=== PATIENT | female | born 1980 | race Caucasian/White ===

== ENCOUNTER 2020-10-17 22:24 | Emergency (ER) | payer MEDICAID, SELFPAY ==
--- NOTE | ~2020-10-17 | CT_ITS ---
EXAMINATION: CT ABDOMEN AND PELVIS WITHOUT CONTRAST CLINICAL INFORMATION: Left lower quadrant and flank pain, question stone COMPARISON: None TECHNIQUE: Multidetector volumetric imaging was performed from the superior aspect of the liver through the pubic symphysis. Sagittal and coronal reformatted images were obtained on the technologist's workstation. This CT examination was performed using dose optimization techniques as appropriate, variously including the following: *Automated exposure control *Adjustment of mA and/or kV according to patient size (this includes techniques or standardized protocols for targeted exams where dose is matched to indication/reason for exam; i.e. extremities or head) *Use of iterative reconstruction technique DLP: 1032 mGy-cm FINDINGS: LUNG BASES: Bibasilar subsegmental atelectasis. LIVER, GALLBLADDER, AND BILIARY TREE: The liver is enlarged, measuring approximately 23 cm in length. No focal hepatic lesion or biliary ductal dilatation is identified on this noncontrast exam. The gallbladder is unremarkable with no evidence of radiopaque gallstones, gallbladder wall thickening, or obvious pericholecystic inflammatory changes. PANCREAS: Unremarkable. SPLEEN: Unremarkable. ADRENAL GLANDS: Unremarkable. KIDNEYS AND URETERS: The kidneys are normal in size, shape, and attenuation. No hydronephrosis, hydroureter, or calculi seen. No perinephric stranding. BLADDER: Unremarkable. GASTROINTESTINAL TRACT: Moderate volume of stool is noted. The small and large bowel are otherwise unremarkable. The appendix is unremarkable. No free fluid or free air is seen. ABDOMINAL WALL: No significant hernia is appreciated. LYMPH NODES: Normal. VASCULAR: Unremarkable. PELVIC VISCERA: Unremarkable. OSSEOUS STRUCTURES: There are bilateral L3 pars defects with slight grade 1 anterolisthesis of L3 on L4 and disc space narrowing. Scattered endplate osteophytes are noted. CT/CT abdomen pelvis wo con IMPRESSION: No hydronephrosis or renal/ureteral calculus identified. Hepatomegaly.
[2020-10-17 22:25] VITALS: BP 174/85; PULSE 77; RESP 16; TEMP 36.9; O2SAT 96; BMI 44.9
[2020-10-17 23:11] LABS: Glucose Urine UA NEG (NEG); Leukocyte Esterase Urine NEG (NEG); Nitrite Urine NEG (NEG); Specific Gravity - Urine >= 1.030 (1.005-1.025); Urine Blood 3+ (NEG); Urine Ketones NEG (NEG); Urine Protein NEG (NEG-TRACE)
[2020-10-17 23:12] LABS: Appearance Urine CLEAR; Color Urine YELLOW
[2020-10-17 23:31] LABS: Bacteria Urine TRACE /LPF; Mucus Urine TRACE /LPF; Squamous Epithelial Cell Urine TRACE /LPF
[2020-10-17 23:45] LABS: UPreg QC Valid YES; Urine Pregnancy NEGATIVE (NEGATIVE)
--- NOTE | 2020-10-17 23:48 | ED.ABDPAIN ---
HPI - Abdominal Pain General Chief Complaint: Abdominal Pain Stated Complaint: Lower abdominal pain Time Seen by Provider: 10/17/20 23:48 Source: patient Mode of arrival: ambulatory Limitations: no limitations History of Present Illness HPI narrative: Patient complaining of left lower abdominal pain for last 3 weeks getting worse for last few days radiating to the back today when she wiped she noticed some blood on the tissue no history of kidney stone no fever ++ history of ovarian cyst in the past patient with chronic constipation uses enema for bowel movements . no blood in the stool Related Data Previous Rx's Medication Instructions Recorded polyethylene glycol 3350 [Miralax] 17 g PO DAILY #510 g 10/18/20 Allergies Allergy/AdvReac Type Severity Reaction Status Date / Time morphine [MORPHINE] Allergy Unknown SHORTNESS Verified 10/17/20 22:33 OF BREATH Penicillins [PENICILLINS] Allergy Unknown RASH Verified 10/17/20 22:33 Review of Systems Review of Systems Yes all other systems are reviewed and are negative Physical Exam Vital Signs: Vital Signs: Last Vital Signs Temp 98.7 F 10/18/20 00:00 Pulse 77 10/17/20 22:25 Resp 16 10/18/20 00:00 BP 160/58 H 10/18/20 00:00 Pulse Ox 95 10/18/20 00:00 Body Mass Index 44.9 Appearance: Alert. Oriented X3. No acute distress. Obese patient Eyes: PERRLA, ENT: Pharynx normal. Oral Mucosa moist Neck: Normal inspection. Neck supple. CVS: Normal heart rate and rhythm. Pulses normal. Respiratory: No respiratory distress. Equal air entry bilateral, no wheezing/rales/rhonchi Abdomen: Soft and mild deep tenderness left lower quadrant Bowel sounds are present, no mass palpable, no CVA tenderness Skin: Skin warm and dry. Normal skin color. Normal skin turgor. Extremities: No lower extremity edema. No calf tenderness Neuro: Oriented X 3. No motor deficit. MDM - Abdominal Pain Lab Data Result diagrams: 10/18/20 00:09 10/18/20 00:09 Labs: Lab Results 10/17/20 10/17/20 10/18/20 Range/Units 23:04 23:04 00:09 WBC 9.9 (4.8-10.8) X10*3/uL RBC 3.45 L (4.20-5.50) X10*6/uL Hgb 10.8 L (12.0-16.0) g/dl Hct 33.4 L (37-47) % MCV 96.8 (80-98) fL MCH 31.3 (27.0-33.0) pg MCHC 32.3 (31.0-35.0) g/dl RDW 12.7 (11.0-16.0) % Plt Count 265 (160-400) X10*3/uL MPV 11.4 (9.4-12.3) fL Immature Gran % (Auto) 0.2 (0.0-0.4) % Neut % (Auto) 44.4 L (45-73) % Lymph % (Auto) 38.2 (20-40) % [place] % (Auto) 8.4 (2-11) % Eos % (Auto) 8.2 H (0-4) % Baso % (Auto) 0.6 (0-2) % Lymph # (Auto) 3.8 (1.2-4.9) X10*3/uL [place] # (Auto) 0.8 (0.1-1.2) X10*3/uL Eos # (Auto) 0.8 H (0.0-0.4) X10*3/uL Baso # (Auto) 0.1 (0.0-0.2) X10*3/uL Abs Immat Gran (auto) 0.02 (0.00-0.03) X10*3/uL Absolute Neuts (auto) 4.4 (2.0-8.3) X10*3/uL Absolute Nucleated RBC 0.000 (0.0-0.012) X10*3/uL Nucleated RBC % (auto) 0.0 (0.0-0.2) /100WBC Sodium (135-145) mmol/L Potassium (3.3-5.1) mmol/L Chloride (96-108) mmol/L Carbon Dioxide (22-29) mmol/L Anion Gap (12-20) BUN (9-16) mg/dL Creatinine (0.5-1.4) mg/dL Estim Creat Clear Calc Estimated GFR Random Glucose (60-115) mg/dL Calcium (8.4-10.2) mg/dL Urine Color YELLOW Urine Appearance CLEAR Urine pH 6.0 (5.0-8.0) Ur Specific [place] >= 1.030 H (1.005-1.025) Urine Protein NEG (NEG-TRACE) MG/DL Urine Glucose (UA) NEG (NEG) MG/DL Urine Ketones NEG (NEG) MG/DL Urine Blood 3+ H (NEG) Urine Nitrite NEG (NEG) Ur Leukocyte Esterase NEG (NEG) Urine RBC 1-4 (0) /HPF Urine WBC 1-4 (0-4) /HPF Ur Squamous Epith Cells TRACE /LPF Urine Bacteria TRACE /LPF Urine Mucus TRACE /LPF Urine Test NEGATIVE (NEGATIVE) 10/18/20 Range/Units 00:09 WBC (4.8-10.8) X10*3/uL RBC (4.20-5.50) X10*6/uL Hgb (12.0-16.0) g/dl Hct (37-47) % MCV (80-98) fL MCH (27.0-33.0) pg MCHC (31.0-35.0) g/dl RDW (11.0-16.0) % Plt Count (160-400) X10*3/uL MPV (9.4-12.3) fL Immature Gran % (Auto) (0.0-0.4) % Neut % (Auto) (45-73) % Lymph % (Auto) (20-40) % [place] % (Auto) (2-11) % Eos % (Auto) (0-4) % Baso % (Auto) (0-2) % Lymph # (Auto) (1.2-4.9) X10*3/uL [place] # (Auto) (0.1-1.2) X10*3/uL Eos # (Auto) (0.0-0.4) X10*3/uL Baso # (Auto) (0.0-0.2) X10*3/uL Abs Immat Gran (auto) (0.00-0.03) X10*3/uL Absolute Neuts (auto) (2.0-8.3) X10*3/uL Absolute Nucleated RBC (0.0-0.012) X10*3/uL Nucleated RBC % (auto) (0.0-0.2) /100WBC Sodium 139 (135-145) mmol/L Potassium 3.9 (3.3-5.1) mmol/L Chloride 107 (96-108) mmol/L Carbon Dioxide 25 (22-29) mmol/L Anion Gap 11 L (12-20) BUN 15 (9-16) mg/dL Creatinine 0.77 (0.5-1.4) mg/dL Estim Creat Clear Calc 130.1 Estimated GFR > 60 Random Glucose 88 (60-115) mg/dL Calcium 8.9 (8.4-10.2) mg/dL Urine Color Urine Appearance Urine pH (5.0-8.0) Ur Specific [place] (1.005-1.025) Urine Protein (NEG-TRACE) MG/DL Urine Glucose (UA) (NEG) MG/DL Urine Ketones (NEG) MG/DL Urine Blood (NEG) Urine Nitrite (NEG) Ur Leukocyte Esterase (NEG) Urine RBC (0) /HPF Urine WBC (0-4) /HPF Ur Squamous Epith Cells /LPF Urine Bacteria /LPF Urine Mucus /LPF Urine Test (NEGATIVE) Discharge Plan Discharge Clinical Impression: Constipation Qualifiers: Constipation type: chronic idiopathic constipation Qualified Code(s): K59.04 - Chronic idiopathic constipation Patient Disposition: Home, Self-Care Instructions: Constipation (ED) Additional Instructions: Drink plenty of fluid take stool softeners as prescribed follow with PCP Prescriptions: New polyethylene glycol 3350 [Miralax] 17 gram/dose powder 17 g PO DAILY Qty: 510 RF: 0 PMFSH Past Medical History Medical History Asthma History of ovarian cyst Hypertension Social History Social History Advance Directives: No Advance Directives Information Provided: No Patient : No
[2020-10-18] VITALS: BP 160/58; RESP 16; TEMP 37.1; O2SAT 95
[2020-10-18 00:20] LABS: MANUAL DIFF FLAG NO
[2020-10-18 00:24] LABS: Basophils Absolute Auto 0.1 X10*3/uL (0.0-0.2); Basophils Percent Auto 0.6 % (0-2); Eosinophils Absolute Auto 0.8 X10*3/uL (0.0-0.4); Eosinophils Percent Auto 8.2 % (0-4); Hematocrit 33.4 % (37-47); Hemoglobin 10.8 g/dl (12.0-16.0); Imm Gran Abs Auto 0.02 X10*3/uL (0.00-0.03); Imm Gran Pct Auto 0.2 % (0.0-0.4); Lymphocytes Absolute Auto 3.8 X10*3/uL (1.2-4.9); Lymphocytes Percent Auto 38.2 % (20-40); Mean Corpuscular HGB Conc 32.3 g/dl (31.0-35.0); Mean Corpuscular Hemoglobin 31.3 pg (27.0-33.0); Mean Corpuscular Volume 96.8 fL (80-98); Mean Platelet Volume 11.4 fL (9.4-12.3); Monocytes Absolute Auto 0.8 X10*3/uL (0.1-1.2); Monocytes Percent Auto 8.4 % (2-11); Neutrophils Absolute Auto 4.4 X10*3/uL (2.0-8.3); Neutrophils Percent Auto 44.4 % (45-73); Platelet Count 265 X10*3/uL (160-400); Red Blood Count 3.45 X10*6/uL (4.20-5.50); Red Cell Distribution Width 12.7 % (11.0-16.0); White Blood Count 9.9 X10*3/uL (4.8-10.8)
[2020-10-18 00:51] LABS: Anion Gap 11 (12-20); Blood Urea Nitrogen 15 mg/dL (9-16); Calcium 8.9 mg/dL (8.4-10.2); Carbon Dioxide 25 mmol/L (22-29); Chloride 107 mmol/L (96-108); Creatinine Clr Calc Pharmacy 130.1; Estimated Glomerular Filt Rate > 60; Glucose Random 88 mg/dL (60-115); Potassium 3.9 mmol/L (3.3-5.1); Sodium 139 mmol/L (135-145)
[2020-10-18 02:31] VITALS: BP 160/94; PULSE 59; RESP 16; TEMP 37.1; O2SAT 96
[2020-10-18] MEDS: Milk of Magnesia 30 ML ORAL.SUSP PO (02:54)
[2020-10-18 12:41] LABS: CT PCR NOT DETECTED (Not Detect.); NG PCR NOT DETECTED (Not Detect.)
== END 2020-10-18 02:59 | disposition home or self-care (01) ==
PROVIDERS: Emergency Provider Internal Medicine
DX: K59.04 Chronic idiopathic constipation (principal); R10.32 Left lower quadrant pain
CPT/HCPCS: 36415; 74176; 80048; 81001; 81025; 85025; 87491; 87591; 99283

== ENCOUNTER 2020-11-20 16:51 | Emergency (ER) | payer MEDICAID, SELFPAY ==
[2020-11-20 17:25] VITALS: BP 158/70; PULSE 70; RESP 10; TEMP 36.8; O2SAT 98; BMI 43.2
[2020-11-20 17:50] LABS: MANUAL DIFF FLAG NO
[2020-11-20 17:53] LABS: Basophils Absolute Auto 0.1 X10*3/uL (0.0-0.2); Basophils Percent Auto 0.8 % (0-2); Eosinophils Absolute Auto 0.7 X10*3/uL (0.0-0.4); Eosinophils Percent Auto 7.3 % (0-4); Hematocrit 35.2 % (37-47); Hemoglobin 11.3 g/dl (12.0-16.0); Imm Gran Abs Auto 0.02 X10*3/uL (0.00-0.03); Imm Gran Pct Auto 0.2 % (0.0-0.4); Lymphocytes Absolute Auto 3.9 X10*3/uL (1.2-4.9); Lymphocytes Percent Auto 41.7 % (20-40); Mean Corpuscular HGB Conc 32.1 g/dl (31.0-35.0); Mean Corpuscular Hemoglobin 30.8 pg (27.0-33.0); Mean Corpuscular Volume 95.9 fL (80-98); Mean Platelet Volume 11.3 fL (9.4-12.3); Monocytes Absolute Auto 0.9 X10*3/uL (0.1-1.2); Monocytes Percent Auto 9.3 % (2-11); Neutrophils Absolute Auto 3.8 X10*3/uL (2.0-8.3); Neutrophils Percent Auto 40.7 % (45-73); Platelet Count 297 X10*3/uL (160-400); Red Blood Count 3.67 X10*6/uL (4.20-5.50); Red Cell Distribution Width 13.2 % (11.0-16.0); White Blood Count 9.3 X10*3/uL (4.8-10.8)
[2020-11-20 18:00] LABS: Appearance Urine CLEAR; Color Urine YELLOW; Glucose Urine UA NEG (NEG); Leukocyte Esterase Urine NEG (NEG); Nitrite Urine NEG (NEG); Specific Gravity - Urine >= 1.030 (1.005-1.025); UACC Culture Trigger NO; UPreg QC Valid YES; Urine Blood TRACE (NEG); Urine Ketones NEG (NEG); Urine Pregnancy NEGATIVE (NEGATIVE); Urine Protein NEG (NEG-TRACE)
[2020-11-20 18:10] LABS: RBC Urine 0-2 /HPF (0); Squamous Epithelial Cell Urine TRACE /LPF; WBC Urine 0 /HPF (0-4)
[2020-11-20 18:19] LABS: Anion Gap 12 (12-20); Blood Urea Nitrogen 16 mg/dL (9-16); Calcium 9.6 mg/dL (8.4-10.2); Carbon Dioxide 27 mmol/L (22-29); Chloride 105 mmol/L (96-108); Estimated Glomerular Filt Rate > 60; Glucose Random 79 mg/dL (60-115); Potassium 4.3 mmol/L (3.3-5.1); Sodium 140 mmol/L (135-145)
--- NOTE | 2020-11-20 21:51 | ED.ABDPAIN ---
HPI - Abdominal Pain General Chief Complaint: Abdominal Pain Stated Complaint: SEVERE ABD PAIN Time Seen by Provider: 11/20/20 21:51 Source: patient Mode of arrival: ambulatory Limitations: no limitations History of Present Illness HPI narrative: patient seen three weeks ago with left flank and lower abdominal pain, had a CT scan one month ago that showed lumbar djd L3 and L4, now with left back pain radiating down left leg. MD elicited complaint: abdominal pain Pertinent past history: constipation Onset (ago): week(s) Pain Consistency: intermittent Location: L flank Severity: mild Quality: sharp Radiation: other (left leg) Exacerbating factors: movement Related Data Previous Rx's Medication Instructions Recorded polyethylene glycol 3350 17 17 g PO DAILY #510 g 10/18/20 gram/dose oral powder (Miralax) cyclobenzaprine 10 mg tablet 10 mg PO TID #10 tab 11/20/20 naproxen 500 mg tablet (Naprosyn) 500 mg PO BID #20 tab 11/20/20 Allergies Allergy/AdvReac Type Severity Reaction Status Date / Time morphine [MORPHINE] Allergy Unknown SHORTNESS Verified 10/17/20 22:33 OF BREATH Penicillins [PENICILLINS] Allergy Unknown RASH Verified 10/17/20 22:33 Review of Systems Constitutional: Reports no additional constitutional complaints Eyes: Reports no additional eye complaints Denies dizziness Cardiovascular: Reports no additional cardiovascular complaints Respiratory: Reports as per HPI Gastrointestinal: Reports no additional gastrointestinal complaints Genitourinary: Reports no additional female genitourinary complaints Musculoskeletal: Reports no additional musculoskeletal complaints Skin/Breast: Denies rash Reports system reviewed and no additional complaints, except as documented, Denies dizziness and Denies Sensory deficit (Neuro) Psychiatric: Denies anxiety Physical Exam Vital Signs: Vital Signs: Last Vital Signs Temp 98.2 F 11/20/20 17:25 Pulse 70 11/20/20 17:25 Resp 10 L 11/20/20 17:25 BP 158/70 H 11/20/20 17:25 Pulse Ox 98 11/20/20 17:25 Body Mass Index 43.2 Const: General: healthy appearing Nutritional Appearance: obese Orientation/consciousness: oriented to person and patient oriented x3 Limitations: no limitations HENMT: Head: Yes normal to inspection Ears: external ears normal General nose exam: Normal external nose present Mouth: Normal oral and palatal mucosa present and oropharynx normal Throat: Yes posterior oropharynx normal Eyes: General: appearance normal, both eyes and all related structures Neck: Other: supple Neck: Yes normal visual inspection Chest: Chest palpation & inspection: normal inspection of the chest Resp: Auscultation: clear to auscultation bilaterally Cardio: Jugular venous distension: no JVD Rate: regular rate Rhythm: regular rhythm Heart sounds: S1 normal heart sound present and S2 normal heart sound present GI: Inspection: Yes normal to inspection Palpation (GI): Soft to palpation, nontender and No hepatosplenomegaly present Auscultation: normal bowel sounds Back/Spine/Pelvis: Other: left SI and lumbar tenderness Skin: General skin exam: no rashes or lesions noted Neuro: General: oriented to person and patient oriented x3 Cranial nerves: Yes CN's II-XII intact bilaterally Motor exam (neuro): 5/5 motor strength present throughout Sensory Exam: No Sensory deficit (Neuro) Extrem: General: Yes normal to inspection Psych: Appearance: grossly normal Course Reevaluation(s) Reevaluation #1: patient by description is having radicular back pain. On CT DJD of L3-L4. Will treat with NSAIds and flexeril Time: 22:01 MDM - Abdominal Pain Lab Data Result diagrams: 11/20/20 17:44 11/20/20 17:44 Labs: Lab Results 11/20/20 11/20/20 11/20/20 Range/Units 17:44 17:44 17:44 WBC 9.3 (4.8-10.8) X10*3/uL RBC 3.67 L (4.20-5.50) X10*6/uL Hgb 11.3 L (12.0-16.0) g/dl Hct 35.2 L (37-47) % MCV 95.9 (80-98) fL MCH 30.8 (27.0-33.0) pg MCHC 32.1 (31.0-35.0) g/dl RDW 13.2 (11.0-16.0) % Plt Count 297 (160-400) X10*3/uL MPV 11.3 (9.4-12.3) fL Immature Gran % (Auto) 0.2 (0.0-0.4) % Neut % (Auto) 40.7 L (45-73) % Lymph % (Auto) 41.7 H (20-40) % [place] % (Auto) 9.3 (2-11) % Eos % (Auto) 7.3 H (0-4) % Baso % (Auto) 0.8 (0-2) % Lymph # (Auto) 3.9 (1.2-4.9) X10*3/uL [place] # (Auto) 0.9 (0.1-1.2) X10*3/uL Eos # (Auto) 0.7 H (0.0-0.4) X10*3/uL Baso # (Auto) 0.1 (0.0-0.2) X10*3/uL Abs Immat Gran (auto) 0.02 (0.00-0.03) X10*3/uL Absolute Neuts (auto) 3.8 (2.0-8.3) X10*3/uL Absolute Nucleated RBC 0.000 (0.0-0.012) X10*3/uL Nucleated RBC % (auto) 0.0 (0.0-0.2) /100WBC Sodium 140 (135-145) mmol/L Potassium 4.3 (3.3-5.1) mmol/L Chloride 105 (96-108) mmol/L Carbon Dioxide 27 (22-29) mmol/L Anion Gap 12 (12-20) BUN 16 (9-16) mg/dL Creatinine 0.81 (0.5-1.4) mg/dL Estim Creat Clear Calc 121.0 Estimated GFR > 60 Random Glucose 79 (60-115) mg/dL Calcium 9.6 D (8.4-10.2) mg/dL Urine Color YELLOW Urine Appearance CLEAR Urine pH 6.0 (5.0-8.0) Ur Specific [place] >= 1.030 H (1.005-1.025) Urine Protein NEG (NEG-TRACE) MG/DL Urine Glucose (UA) NEG (NEG) MG/DL Urine Ketones NEG (NEG) MG/DL Urine Blood TRACE (NEG) Urine Nitrite NEG (NEG) Ur Leukocyte Esterase NEG (NEG) Urine RBC 0-2 (0) /HPF Urine WBC 0 (0-4) /HPF Ur Squamous Epith Cells TRACE /LPF Urine Bacteria NONE /LPF Urine Test (NEGATIVE) 11/20/20 Range/Units 17:44 WBC (4.8-10.8) X10*3/uL RBC (4.20-5.50) X10*6/uL Hgb (12.0-16.0) g/dl Hct (37-47) % MCV (80-98) fL MCH (27.0-33.0) pg MCHC (31.0-35.0) g/dl RDW (11.0-16.0) % Plt Count (160-400) X10*3/uL MPV (9.4-12.3) fL Immature Gran % (Auto) (0.0-0.4) % Neut % (Auto) (45-73) % Lymph % (Auto) (20-40) % [place] % (Auto) (2-11) % Eos % (Auto) (0-4) % Baso % (Auto) (0-2) % Lymph # (Auto) (1.2-4.9) X10*3/uL [place] # (Auto) (0.1-1.2) X10*3/uL Eos # (Auto) (0.0-0.4) X10*3/uL Baso # (Auto) (0.0-0.2) X10*3/uL Abs Immat Gran (auto) (0.00-0.03) X10*3/uL Absolute Neuts (auto) (2.0-8.3) X10*3/uL Absolute Nucleated RBC (0.0-0.012) X10*3/uL Nucleated RBC % (auto) (0.0-0.2) /100WBC Sodium (135-145) mmol/L Potassium (3.3-5.1) mmol/L Chloride (96-108) mmol/L Carbon Dioxide (22-29) mmol/L Anion Gap (12-20) BUN (9-16) mg/dL Creatinine (0.5-1.4) mg/dL Estim Creat Clear Calc Estimated GFR Random Glucose (60-115) mg/dL Calcium (8.4-10.2) mg/dL Urine Color Urine Appearance Urine pH (5.0-8.0) Ur Specific [place] (1.005-1.025) Urine Protein (NEG-TRACE) MG/DL Urine Glucose (UA) (NEG) MG/DL Urine Ketones (NEG) MG/DL Urine Blood (NEG) Urine Nitrite (NEG) Ur Leukocyte Esterase (NEG) Urine RBC (0) /HPF Urine WBC (0-4) /HPF Ur Squamous Epith Cells /LPF Urine Bacteria /LPF Urine Test NEGATIVE (NEGATIVE) Discharge Plan Discharge Clinical Impression: Radicular low back pain Patient Disposition: Home, Self-Care Instructions: Back Pain (ED) Prescriptions: New cyclobenzaprine 10 mg tablet 10 mg PO TID Qty: 10 RF: 0 naproxen [Naprosyn] 500 mg tablet 500 mg PO BID Qty: 20 RF: 0 No Action polyethylene glycol 3350 [Miralax] 17 gram/dose powder 17 g PO DAILY Qty: 510 RF: 0 Referrals: Physician,Unknown [Primary Care Provider] - 1 week PMFSH Past Medical History Medical History Asthma History of ovarian cyst Hypertension Social History Social History Advance Directives: No Patient : No
[2020-11-20 22:08] VITALS: BP 143/79; PULSE 67; RESP 16; O2SAT 94
[2020-11-20] MEDS: Ibuprofen 800 MG TABLET PO (22:08)
[2020-11-20] MEDS: Cyclobenzaprine HCl 10 MG TABLET PO (22:08)
[2020-11-21 02:38] LABS: CT PCR NOT DETECTED (Not Detect.); NG PCR NOT DETECTED (Not Detect.)
== END 2020-11-20 22:16 | disposition home or self-care (01) ==
PROVIDERS: Emergency Provider Emergency Medicine
DX: M54.5 Low back pain (principal); M54.16 Radiculopathy, lumbar region; I10 Essential (primary) hypertension
CPT/HCPCS: 36415; 80048; 81001; 81025; 85025; 87491; 87591; 99283; 99284

== ENCOUNTER 2020-11-29 20:12 | Emergency (ER) | payer MEDICAID, SELFPAY ==
[2020-11-29 20:16] VITALS: PULSE 72; RESP 16; TEMP 36.9; O2SAT 100; BMI 44.9
--- NOTE | 2020-11-29 20:24 | ED_ITS ---
HPI - URI/Sore Throat General Chief Complaint: Upper Respiratory Symptoms Stated Complaint: Covid swab Source: patient Mode of arrival: ambulatory Limitations: no limitations History of Present Illness HPI Narrative: 40-year-old female presents with upper respiratory symptoms. Also presents with her children. Patient is requesting COVID-19 testing. MD elicited complaint: fever, cough and nasal congestion Onset (ago): day(s) (2) Consistency: constant Severity: mild Description of mucous: clear and watery Able to tolerate fluids by mouth: Yes Exacerbating factors: nothing Context: sick contacts Associated symptoms: fever, chills, rhinorrhea, nasal congestion, nausea and diarrhea Treatments prior to arrival: none Related Data Previous Rx's Medication Instructions Recorded polyethylene glycol 3350 17 17 g PO DAILY #510 g 10/18/20 gram/dose oral powder (Miralax) cyclobenzaprine 10 mg tablet 10 mg PO TID #10 tab 11/20/20 naproxen 500 mg tablet (Naprosyn) 500 mg PO BID #20 tab 11/20/20 Allergies Allergy/AdvReac Type Severity Reaction Status Date / Time morphine [MORPHINE] Allergy Unknown SHORTNESS Verified 10/17/20 22:33 OF BREATH Penicillins [PENICILLINS] Allergy Unknown RASH Verified 10/17/20 22:33 Review of Systems Review of Systems: Constitutional: Subjective Fever, No Chills ENT/Mouth: No Ear Pain, No Hoarseness, No sore throat Eyes: No Eye Pain, No Swelling, No Redness, No Foreign Body Cardiovascular: No Chest Pain, No SOB Respiratory: Positive Cough, No Dyspnea Gastrointestinal: Positive Nausea, positive Vomiting, positive Diarrhea, No abdominal Pain Genitourinary: No Dysuria, No Hematuria Musculoskeletal: No joint pain, No Myalgias, No Joint Swelling Skin: No Skin lacerations, No rash Neuro: No Weakness, No Numbness, No Paresthesias, No Loss of Consciousness, No Dizziness, No Headache Psych: No Anxiety/Panic, No Depression Heme/Lymph: no easy bruising, no Lymphadenopathy Endocrine: No Polyuria, No Polydipsia Yes all other systems are reviewed and are negative [facility] Past Medical History Attestation statement: The following information was validated with the patient. Source: old records reviewed Medical History Asthma History of ovarian cyst Hypertension Social History Social History Advance Directives: No Advance Directives Information Provided: No Patient : No Physical Exam Vital Signs: Vital Signs: Last Vital Signs Temp 98.4 F 11/29/20 20:16 Pulse 72 11/29/20 20:16 Resp 16 11/29/20 20:16 Pulse Ox 100 11/29/20 20:16 Body Mass Index 44.9 Appearance: Alert. Oriented X3. No acute distress. Eyes: Pupils equal, round and reactive to light. ENT: Pharynx normal. Moist mucous membranes. Neck: Normal inspection. Neck supple. CVS: Normal heart rate and rhythm. Pulses normal. Respiratory: No respiratory distress. Breath sounds normal. Abdomen: Soft and nontender. Skin: Skin warm and dry. Normal skin color. Normal skin turgor. Extremities: No lower extremity edema. Moves all extremities against resistance. Neuro: No motor deficit. No sensory deficit. Cranial nerves 2-12 intact. Course Course Course Narrative: 40-year-old female presents with upper respiratory symptoms for approximately 2 days. Patient is adamant against vital signs, states blood pressure hurts her arm too much and she does not feel that this is required at this time. Patient is unable to be redirected. She has requested COVID-19 testing. COVID-19 test is negative, strep test is negative. Plan of care to discharge home. MDM - URI/Sore Throat Differential Diagnosis Differential diagnosis: Likely upper respiratory infection, otitis media and viral infection Medical Records Attestation: I reviewed the patient's medical records. Lab Data Attestation: I reviewed the patient's lab results. Labs: Lab Results 11/29/20 11/29/20 Range/Units 20:50 20:58 COVID-19 (PACO) Negative (Negative) COVID-19 Clin Com See Note S. pyogenes GrpA YVETTE Negative (Negative) Discharge Plan Discharge Clinical Impression: Upper respiratory infection Patient Disposition: Home, Self-Care Instructions: Upper Respiratory Infection (ED), Viral Syndrome (ED) Additional Instructions: You were evaluated for upper respiratory symptoms. Your COVID-19 test was negative. Your strep test was negative. Please follow-up with speaking unit assembler this week. Thank you for choosing this emergency department for evaluation. Please follow-up with primary care physician as needed. Return to the emergency department for any new, concerning, or worsening symptoms. Prescriptions: No Action polyethylene glycol 3350 [Miralax] 17 gram/dose powder 17 g PO DAILY Qty: 510 RF: 0 cyclobenzaprine 10 mg tablet 10 mg PO TID Qty: 10 RF: 0 naproxen [Naprosyn] 500 mg tablet 500 mg PO BID Qty: 20 RF: 0 Interventions: ED Discharge Assessment Last Done: 11/29/20 21:54 Discharge Date/Time: 11/29/20 21:56
--- NOTE | 2020-11-29 20:44 | PC.NURSE ---
mother unable to withstand tightness of blood pressure cuff, took it off while measuring. also took cuffs off 2 of her kids because they stated it was tight. mother now refusing blood pressures on her or her kids. mother also requesting temporal artery temp instead of rectal temps for the infants. provider notified.
[2020-11-29 21:25] LABS: COVID-19 Test Negative (Negative); IDNOW Serial# 55D5AD1C
[2020-11-29 21:33] LABS: IDNOW Serial# 55D5AD1C; Strep A Nucleic Acid Negative (Negative)
== END 2020-11-29 21:56 | disposition home or self-care (01) ==
PROVIDERS: Nurse Practitioner Family; Emergency Provider Internal Medicine
DX: J06.9 Acute upper respiratory infection, unspecified (principal); R50.9 Fever, unspecified; J34.89 Other specified disorders of nose and nasal sinuses; Z20.822 Contact with and (suspected) exposure to COVID-19; Z79.899 Other long term (current) drug therapy
CPT/HCPCS: 36415; 87635; 87651; 99283

== ENCOUNTER 2020-12-27 20:59 | Inpatient (IN) | payer MEDICAID, SELFPAY ==
--- NOTE | ~2020-12-27 | XR_ITS ---
EXAMINATION: XR CHEST CLINICAL INFORMATION: Shortness of breath COMPARISON: 08/18/2018 TECHNIQUE: Frontal view of the chest was obtained. FINDINGS: Lung volumes are symmetric. Streaky left basilar opacities are noted. No evidence of pneumothorax, pleural effusion, or pulmonary edema. The cardiomediastinal contour is unremarkable. No acute osseous findings are seen. XR/XR chest 1V IMPRESSION: Streaky left basilar opacity suggesting atelectasis.
--- NOTE | ~2020-12-27 | CT_ITS ---
EXAMINATION: CT ANGIOGRAM OF THE CHEST WITH AND WITHOUT CONTRAST (CT PULMONARY ANGIOGRAM FOR PE) CLINICAL INFORMATION: Reason for Exam hypoxia COMPARISON: Chest x-ray from earlier today TECHNIQUE: Prior to contrast administration, noncontrast localization images were obtained. Subsequently, multidetector volumetric imaging was performed from the thoracic inlet to below the diaphragms following the administration of 100 mL Omnipaque 350 intravenous contrast. No contrast reaction reported Sagittal, coronal, and MIP oblique sagittal reformatted images were obtained on the CT workstation, uploaded to PACS, and reviewed. This CT examination was performed using dose optimization techniques as appropriate, variously including the following: *Automated exposure control *Adjustment of mA and/or kV according to patient size (this includes techniques or standardized protocols for targeted exams where dose is matched to indication/reason for exam; i.e. extremities or head) *Use of iterative reconstruction technique Total exam dose-length product 585 mGy-cm FINDINGS: QUALITY OF STUDY/CONTRAST BOLUS: Suboptimal. PULMONARY ARTERIES: No definite central or segmental pulmonary emboli. Limited evaluation of the distal vasculature due to suboptimal bolus timing. THORACIC AORTA: No aneurysm or dissection. LUNG: There are several scattered areas of patchy groundglass opacity and consolidation bilaterally. Curvilinear opacities in the bilateral lower lobes favor subsegmental atelectasis. PLEURA: No pleural effusion or pneumothorax. MEDIASTINUM: The visualized thyroid gland is unremarkable. No discrete mediastinal lymphadenopathy is seen. Cardiac size is within normal limits; no pericardial effusion. No evidence of septal bowing or right heart strain. CHEST WALL/AXILLA: No axillary or internal mammary lymphadenopathy. OSSEOUS STRUCTURES: Multilevel endplate osteophytes are noted in the spine. UPPER ABDOMEN: Unremarkable. No reflux of contrast into the hepatic veins to suggest elevated right heart pressures. CT/CT angio chest PE protocol IMPRESSION: 1. No pulmonary embolus identified, though assessment of the distal vasculature is limited. 2. Scattered areas of patchy groundglass opacity and consolidation bilaterally, favoring an infectious/inflammatory etiology. Subsegmental atelectasis in the bilateral lower lobes. VTE: negative
--- NOTE | ~2020-12-27 | XR_ITS ---
EXAMINATION: XR HIP, LEFT CLINICAL INFORMATION: Left hip pain COMPARISON: None TECHNIQUE: Two views of the left hip. FINDINGS: Bones and soft tissues are normal. No fracture. Alignment is anatomic. Hip joint space is maintained. XR/XR hip LT min 2V IMPRESSION: Normal left hip.
[2020-12-27 21:31] VITALS: BP 199/92; PULSE 92; RESP 20; TEMP 36.9; O2SAT 93; BMI 44.9
--- NOTE | 2020-12-27 22:11 | ED_ITS ---
HPI - URI/Sore Throat General Chief Complaint: Upper Respiratory Symptoms <Félix Dos Santos MD - Last Filed: 12/27/20 22:19> Stated Complaint: Covid symptoms <Félix Dos Santos MD - Last Filed: 12/27/20 22:19> Time Seen by Provider: 12/27/20 21:59 <Félix Dos Santos MD - Last Filed: 12/27/20 22:19> Source: patient <Félix Dos Santos MD - Last Filed: 12/27/20 22:19> Limitations: no limitations <Félix Dos Santos MD - Last Filed: 12/27/20 22:19> History of Present Illness HPI Narrative: Patient with recent exposure to COVID-19. Her daughter tested positive 4 days ago. Patient became symptomatic 2 days ago. Positive cough and wheezing with a history of asthma. She has a history of hypertension but not diabetes. She states she gets very short of breath with minimal exertion. No nausea vomiting. She is here with her 2 other children who have rhinorrhea but no other significant symptoms. She complains of some fevers. No prior history of pneumonia. Secondary complaint of left hip pain which is been there for the past 3 months. Worse with exertion. She has not seen a provider about this. No traumas or causative factors. No fevers prior to the last 2 days which are associated with her new respiratory syndrome <Félix Dos Santos MD - Last Filed: 12/27/20 22:19> Related Data Home Medications: Previous Rx's Medication Instructions Recorded polyethylene glycol 3350 17 17 g PO DAILY #510 g 10/18/20 gram/dose oral powder (Miralax) cyclobenzaprine 10 mg tablet 10 mg PO TID #10 tab 11/20/20 naproxen 500 mg tablet (Naprosyn) 500 mg PO BID #20 tab 11/20/20 <Félix Dos Santos MD - Last Filed: 12/27/20 22:19> Allergies/Adverse Reactions: Allergies Allergy/AdvReac Type Severity Reaction Status Date / Time morphine [MORPHINE] Allergy Unknown SHORTNESS Verified 12/27/20 21:31 OF BREATH Penicillins [PENICILLINS] Allergy Unknown RASH Verified 12/27/20 21:31 <Félix Dos Santos MD - Last Filed: 12/27/20 22:19> Review of Systems Constitutional: Comments: No fevers chills and body aches <Félix Dos Santos MD - Last Filed: 12/27/20 22:19> ENT: Comments: Rhinorrhea. <Félix Dos Santos MD - Last Filed: 12/27/20 22:19> Cardiovascular: Comments: Chest pain with cough <Félix Dos Santos MD - Last Filed: 12/27/20 22:19> Respiratory: Comments: Wheezing and shortness of breath. Positive cough. <Félix Dos Santos MD - Last Filed: 12/27/20 22:19> Gastrointestinal: Comments: No vomiting or diarrhea <Félix Dos Santos MD - Last Filed: 12/27/20 22:19> Musculoskeletal: Comments: Hip pain as stated in HPI <Félix Dos Santos MD - Last Filed: 12/27/20 22:19> Integumentary/Breasts: Comments: No rash <Félix Dos Santos MD - Last Filed: 12/27/20 22:19> Neurologic: Comments: No focal weakness <Félix Dos Santos MD - Last Filed: 12/27/20 22:19> [facility] Past Medical History Medical History: Medical History Asthma History of ovarian cyst Hypertension <Félix Dos Santos MD - Last Filed: 12/27/20 22:19> Social History Social History: Social History Alcohol intake: never Patient Tobacco Use Status: Never used Tobacco Use of substances other than those prescribed or required for medical reasons: No Advance Directives: No Advance Directives Information Provided: No Patient : No <Félix Dos Santos MD - Last Filed: 12/27/20 22:19> Physical Exam Vital Signs: Vital Signs: Last Vital Signs Temp 98.3 F 12/28/20 04:00 Pulse 84 12/28/20 04:00 Resp 20 12/28/20 04:00 BP 149/75 H 12/28/20 04:00 Pulse Ox 97 12/28/20 04:00 Body Mass Index 44.9 <Félix Dos Santos MD - Last Filed: 12/27/20 22:19> Vital Signs: Last Vital Signs Temp 98.3 F 12/28/20 04:00 Pulse 84 12/28/20 04:00 Resp 20 12/28/20 04:00 BP 149/75 H 12/28/20 04:00 Pulse Ox 97 12/28/20 04:00 Body Mass Index 44.9 <Paresh Patricia MD - Last Filed: 12/28/20 05:32> Const: Other: Awake and alert. Appears moderately uncomfortable <Félix Dos Santos MD - Last Filed: 12/27/20 22:19> Resp: Other: Bilateral wheezes with fair air entry. Oxygen saturation now at 86%. The on room air without exertion <Félix Dos Santos MD - Last Filed: 12/27/20 22:19> Cardio: Other: Regular rate and rhythm no murmurs rubs or gallops <Félix Dos Santos MD - Last Filed: 12/27/20 22:19> GI: Other: Soft nontender nondistended <Félix Dos Santos MD - Last Filed: 12/27/20 22:19> Skin: Other: Warm and dry without obvious rash <Félix Dos Santos MD - Last Filed: 12/27/20 22:19> Neuro: Other: Nonfocal <Félix Dos Santos MD - Last Filed: 12/27/20 22:19> Course Course Course Narrative: COVID-19 pneumonia Bacterial pneumonia Asthma exacerbation Upper respiratory infection Hypoxia Respiratory failure Treated with high-dose albuterol As Solu-Medrol IV 125 mg Await workup <Félix Dos Santos MD - Last Filed: 12/27/20 22:19> Reevaluation(s) Reevaluation #1: Patient not COVID-19 vaccinated comes here with upper respiratory infection with hypoxia saturating 86% at room air ABG showed hypoxia without hypercapnia, patient does have history of asthma has bilateral wheezing CTA chest showed bilateral infiltrates negative for PE i suspected pneumonia at this time after CT scan report as chest x-ray was negative. Will start patient on Rocephin and doxycycline and admit <Paresh Patricia MD - Last Filed: 12/28/20 05:32> Time: 05:20 <Paresh Patricia MD - Last Filed: 12/28/20 05:32> MDM - URI/Sore Throat Lab Data Result diagrams: : 12/27/20 22:50 12/27/20 22:50 <Félix Dos Santos MD - Last Filed: 12/27/20 22:19> Labs: Lab Results 12/27/20 12/27/20 12/27/20 Range/Units 22:21 22:50 22:50 WBC 14.5 H (4.8-10.8) X10*3/uL RBC 3.83 L (4.20-5.50) X10*6/uL Hgb 11.8 L (12.0-16.0) g/dl Hct 36.2 L (37-47) % MCV 94.5 (80-98) fL MCH 30.8 (27.0-33.0) pg MCHC 32.6 (31.0-35.0) g/dl RDW 13.3 (11.0-16.0) % Plt Count 231 (160-400) X10*3/uL MPV 11.5 (9.4-12.3) fL Immature Gran % (Auto) 0.2 (0.0-0.4) % Neut % (Auto) 73.8 H (45-73) % Lymph % (Auto) 11.3 L (20-40) % Douglas % (Auto) 8.5 (2-11) % Eos % (Auto) 5.7 H (0-4) % Baso % (Auto) 0.5 (0-2) % Lymph # (Auto) 1.6 (1.2-4.9) X10*3/uL Douglas # (Auto) 1.2 (0.1-1.2) X10*3/uL Eos # (Auto) 0.8 H (0.0-0.4) X10*3/uL Baso # (Auto) 0.1 (0.0-0.2) X10*3/uL Abs Immat Gran (auto) 0.03 (0.00-0.03) X10*3/uL Absolute Neuts (auto) 10.7 H (2.0-8.3) X10*3/uL Absolute Nucleated RBC 0.000 (0.0-0.012) X10*3/uL Nucleated RBC % (auto) 0.0 (0.0-0.2) /100WBC D-Dimer NG/ML O2 Saturation % ABG pH at Pt Temp (7.35-7.45) ABG pH (Temp Correct) (7.35-7.45) ABG pCO2 at Pt Temp (32-45) mmHg ABG pCO2 (Temp Corrct (32-45) mmHg ABG pO2 at Pt Temp (83-108) mmHg ABG pO2 (Temp Correct (83-108) ABG HCO3 (22-26) mmol/L ABG Base Excess (Actual) mmol/L Sodium 138 (135-145) mmol/L Potassium 4.3 (3.3-5.1) mmol/L Chloride 102 (96-108) mmol/L Carbon Dioxide 28 (22-29) mmol/L Anion Gap 12 (12-20) BUN 13 (9-16) mg/dL Creatinine 0.76 (0.5-1.4) mg/dL Estim Creat Clear Calc 131.8 Estimated GFR > 60 Random Glucose 93 (60-115) mg/dL Lactic Acid (0.5-2.0) mmol/L Calcium 9.4 (8.4-10.2) mg/dL Magnesium 1.8 (1.6-2.6) mg/dL Total Bilirubin 0.4 (0.0-1.0) mg/dL AST 27 (5-31) U/L ALT 27 (0-31) U/L Alkaline Phosphatase 62 (39-117) U/L Total Protein 7.7 (6.5-8.0) g/dL Albumin 4.4 (3.5-5.0) g/dL Coronavirus (PCR) NEGATIVE (Negative) Influenza Type A (PCR) NEGATIVE (Negative) Influenza Type B (PCR) NEGATIVE (Negative) RSV RNA Qual (PCR) NEGATIVE (Negative) 12/27/20 12/27/20 12/28/20 Range/Units 22:50 22:50 03:33 WBC (4.8-10.8) X10*3/uL RBC (4.20-5.50) X10*6/uL Hgb (12.0-16.0) g/dl Hct (37-47) % MCV (80-98) fL MCH (27.0-33.0) pg MCHC (31.0-35.0) g/dl RDW (11.0-16.0) % Plt Count (160-400) X10*3/uL MPV (9.4-12.3) fL Immature Gran % (Auto) (0.0-0.4) % Neut % (Auto) (45-73) % Lymph % (Auto) (20-40) % Douglas % (Auto) (2-11) % Eos % (Auto) (0-4) % Baso % (Auto) (0-2) % Lymph # (Auto) (1.2-4.9) X10*3/uL Douglas # (Auto) (0.1-1.2) X10*3/uL Eos # (Auto) (0.0-0.4) X10*3/uL Baso # (Auto) (0.0-0.2) X10*3/uL Abs Immat Gran (auto) (0.00-0.03) X10*3/uL Absolute Neuts (auto) (2.0-8.3) X10*3/uL Absolute Nucleated RBC (0.0-0.012) X10*3/uL Nucleated RBC % (auto) (0.0-0.2) /100WBC D-Dimer < 200 NG/ML O2 Saturation 94.0 % ABG pH at Pt Temp 7.43 (7.35-7.45) ABG pH (Temp Correct) 7.43 (7.35-7.45) ABG pCO2 at Pt Temp 42 (32-45) mmHg ABG pCO2 (Temp Corrct 42 (32-45) mmHg ABG pO2 at Pt Temp 79 L (83-108) mmHg ABG pO2 (Temp Correct 78 L (83-108) ABG HCO3 28 H (22-26) mmol/L ABG Base Excess (Actual) 3.8 mmol/L Sodium (135-145) mmol/L Potassium (3.3-5.1) mmol/L Chloride (96-108) mmol/L Carbon Dioxide (22-29) mmol/L Anion Gap (12-20) BUN (9-16) mg/dL Creatinine (0.5-1.4) mg/dL Estim Creat Clear Calc Estimated GFR Random Glucose (60-115) mg/dL Lactic Acid 0.6 (0.5-2.0) mmol/L Calcium (8.4-10.2) mg/dL Magnesium (1.6-2.6) mg/dL Total Bilirubin (0.0-1.0) mg/dL AST (5-31) U/L ALT (0-31) U/L Alkaline Phosphatase (39-117) U/L Total Protein (6.5-8.0) g/dL Albumin (3.5-5.0) g/dL Coronavirus (PCR) (Negative) Influenza Type A (PCR) (Negative) Influenza Type B (PCR) (Negative) RSV RNA Qual (PCR) (Negative) <Félix Dos Santos MD - Last Filed: 12/27/20 22:19> Lab Results 12/27/20 12/27/20 12/27/20 Range/Units 22:21 22:50 22:50 WBC 14.5 H (4.8-10.8) X10*3/uL RBC 3.83 L (4.20-5.50) X10*6/uL Hgb 11.8 L (12.0-16.0) g/dl Hct 36.2 L (37-47) % MCV 94.5 (80-98) fL MCH 30.8 (27.0-33.0) pg MCHC 32.6 (31.0-35.0) g/dl RDW 13.3 (11.0-16.0) % Plt Count 231 (160-400) X10*3/uL MPV 11.5 (9.4-12.3) fL Immature Gran % (Auto) 0.2 (0.0-0.4) % Neut % (Auto) 73.8 H (45-73) % Lymph % (Auto) 11.3 L (20-40) % Douglas % (Auto) 8.5 (2-11) % Eos % (Auto) 5.7 H (0-4) % Baso % (Auto) 0.5 (0-2) % Lymph # (Auto) 1.6 (1.2-4.9) X10*3/uL Douglas # (Auto) 1.2 (0.1-1.2) X10*3/uL Eos # (Auto) 0.8 H (0.0-0.4) X10*3/uL Baso # (Auto) 0.1 (0.0-0.2) X10*3/uL Abs Immat Gran (auto) 0.03 (0.00-0.03) X10*3/uL Absolute Neuts (auto) 10.7 H (2.0-8.3) X10*3/uL Absolute Nucleated RBC 0.000 (0.0-0.012) X10*3/uL Nucleated RBC % (auto) 0.0 (0.0-0.2) /100WBC D-Dimer NG/ML O2 Saturation % ABG pH at Pt Temp (7.35-7.45) ABG pH (Temp Correct) (7.35-7.45) ABG pCO2 at Pt Temp (32-45) mmHg ABG pCO2 (Temp Corrct (32-45) mmHg ABG pO2 at Pt Temp (83-108) mmHg ABG pO2 (Temp Correct (83-108) ABG HCO3 (22-26) mmol/L ABG Base Excess (Actual) mmol/L Sodium 138 (135-145) mmol/L Potassium 4.3 (3.3-5.1) mmol/L Chloride 102 (96-108) mmol/L Carbon Dioxide 28 (22-29) mmol/L Anion Gap 12 (12-20) BUN 13 (9-16) mg/dL Creatinine 0.76 (0.5-1.4) mg/dL Estim Creat Clear Calc 131.8 Estimated GFR > 60 Random Glucose 93 (60-115) mg/dL Lactic Acid (0.5-2.0) mmol/L Calcium 9.4 (8.4-10.2) mg/dL Magnesium 1.8 (1.6-2.6) mg/dL Total Bilirubin 0.4 (0.0-1.0) mg/dL AST 27 (5-31) U/L ALT 27 (0-31) U/L Alkaline Phosphatase 62 (39-117) U/L Total Protein 7.7 (6.5-8.0) g/dL Albumin 4.4 (3.5-5.0) g/dL Coronavirus (PCR) NEGATIVE (Negative) Influenza Type A (PCR) NEGATIVE (Negative) Influenza Type B (PCR) NEGATIVE (Negative) RSV RNA Qual (PCR) NEGATIVE (Negative) 12/27/20 12/27/20 12/28/20 Range/Units 22:50 22:50 03:33 WBC (4.8-10.8) X10*3/uL RBC (4.20-5.50) X10*6/uL Hgb (12.0-16.0) g/dl Hct (37-47) % MCV (80-98) fL MCH (27.0-33.0) pg MCHC (31.0-35.0) g/dl RDW (11.0-16.0) % Plt Count (160-400) X10*3/uL MPV (9.4-12.3) fL Immature Gran % (Auto) (0.0-0.4) % Neut % (Auto) (45-73) % Lymph % (Auto) (20-40) % Douglas % (Auto) (2-11) % Eos % (Auto) (0-4) % Baso % (Auto) (0-2) % Lymph # (Auto) (1.2-4.9) X10*3/uL Douglas # (Auto) (0.1-1.2) X10*3/uL Eos # (Auto) (0.0-0.4) X10*3/uL Baso # (Auto) (0.0-0.2) X10*3/uL Abs Immat Gran (auto) (0.00-0.03) X10*3/uL Absolute Neuts (auto) (2.0-8.3) X10*3/uL Absolute Nucleated RBC (0.0-0.012) X10*3/uL Nucleated RBC % (auto) (0.0-0.2) /100WBC D-Dimer < 200 NG/ML O2 Saturation 94.0 % ABG pH at Pt Temp 7.43 (7.35-7.45) ABG pH (Temp Correct) 7.43 (7.35-7.45) ABG pCO2 at Pt Temp 42 (32-45) mmHg ABG pCO2 (Temp Corrct 42 (32-45) mmHg ABG pO2 at Pt Temp 79 L (83-108) mmHg ABG pO2 (Temp Correct 78 L (83-108) ABG HCO3 28 H (22-26) mmol/L ABG Base Excess (Actual) 3.8 mmol/L Sodium (135-145) mmol/L Potassium (3.3-5.1) mmol/L Chloride (96-108) mmol/L Carbon Dioxide (22-29) mmol/L Anion Gap (12-20) BUN (9-16) mg/dL Creatinine (0.5-1.4) mg/dL Estim Creat Clear Calc Estimated GFR Random Glucose (60-115) mg/dL Lactic Acid 0.6 (0.5-2.0) mmol/L Calcium (8.4-10.2) mg/dL Magnesium (1.6-2.6) mg/dL Total Bilirubin (0.0-1.0) mg/dL AST (5-31) U/L ALT (0-31) U/L Alkaline Phosphatase (39-117) U/L Total Protein (6.5-8.0) g/dL Albumin (3.5-5.0) g/dL Coronavirus (PCR) (Negative) Influenza Type A (PCR) (Negative) Influenza Type B (PCR) (Negative) RSV RNA Qual (PCR) (Negative) <Paresh Patricia MD - Last Filed: 12/28/20 05:32> Critical Care Time Critical Care Time Critical Care Time: Yes <Félix Dos Santos MD - Last Filed: 12/27/20 22:19> Total Critical Care Time: 100 <Félix Dos Santos MD - Last Filed: 12/27/20 22:19> Attestation: Critical care time secondary to respiratory failure, hypoxia, high-dose albuterol. Total of 100 minutes spent not including other billable procedures. <Félix Dos Santos MD - Last Filed: 12/27/20 22:19> Discharge Plan Discharge Clinical Impression: Hypoxia Pneumonia Qualifiers: Pneumonia type: due to unspecified organism Laterality: bilateral Lung location: unspecified part of lung Qualified Code(s): J18.9 - Pneumonia, unspecified organism Asthma Qualifiers: Asthma severity: severe Asthma persistence: persistent Asthma complication type: with acute exacerbation Qualified Code(s): J45.51 - Severe persistent asthma with (acute) exacerbation <Félix Dos Santos MD - Last Filed: 12/27/20 22:19> Patient Disposition: Admitted As Inpatient <Félix Dos Santos MD - Last Filed: 12/27/20 22:19>
[2020-12-27 22:28] LABS: Adenovirus PCR Not Detected (Not Detect.); Bordetella parapertussis PCR Not Detected (Not Detect.); Bordetella pertussis PCR Not Detected (Not Detect.); Chlamydia pneumoniae PCR Not Detected (Not Detect.); Coronavirus 229E PCR Not Detected (Not Detect.); Coronavirus HKU1 PCR Not Detected (Not Detect.); Coronavirus NL63 PCR Not Detected (Not Detect.); Coronavirus OC43 PCR Not Detected (Not Detect.); Human metapneumovirus PCR Not Detected (Not Detect.); Influenza A PCR Not Detected (Not Detect.); Influenza B PCR Not Detected (Not Detect.); Mycoplasma pneumoniae PCR Not Detected (Not Detect.); Parainfluenza 1 PCR Not Detected (Not Detect.); Parainfluenza 2 PCR Not Detected (Not Detect.); Parainfluenza 3 PCR Not Detected (Not Detect.); Parainfluenza 4 PCR Not Detected (Not Detect.); RSV PCR Not Detected (Not Detect.); SARS-CoV-2 PCR Not Detected (Not Detect.)
[2020-12-27] MEDS: Acetaminophen 325 MG TABLET 650 MG PO (22:39)
[2020-12-27] MEDS: methylPREDNISolone Sod Succ 125 MG/2 ML VIAL IVPUSH (22:50)
[2020-12-27] MEDS: 0.9 % Sodium Chloride 500 ML IV (22:50)
[2020-12-27 22:57] LABS: MANUAL DIFF FLAG NO
[2020-12-27 22:59] LABS: Basophils Absolute Auto 0.1 X10*3/uL (0.0-0.2); Basophils Percent Auto 0.5 % (0-2); Eosinophils Absolute Auto 0.8 X10*3/uL (0.0-0.4); Eosinophils Percent Auto 5.7 % (0-4); Hematocrit 36.2 % (37-47); Hemoglobin 11.8 g/dl (12.0-16.0); Imm Gran Abs Auto 0.03 X10*3/uL (0.00-0.03); Imm Gran Pct Auto 0.2 % (0.0-0.4); Lymphocytes Absolute Auto 1.6 X10*3/uL (1.2-4.9); Lymphocytes Percent Auto 11.3 % (20-40); Mean Corpuscular HGB Conc 32.6 g/dl (31.0-35.0); Mean Corpuscular Hemoglobin 30.8 pg (27.0-33.0); Mean Corpuscular Volume 94.5 fL (80-98); Mean Platelet Volume 11.5 fL (9.4-12.3); Monocytes Absolute Auto 1.2 X10*3/uL (0.1-1.2); Monocytes Percent Auto 8.5 % (2-11); Neutrophils Absolute Auto 10.7 X10*3/uL (2.0-8.3); Neutrophils Percent Auto 73.8 % (45-73); Platelet Count 231 X10*3/uL (160-400); Red Blood Count 3.83 X10*6/uL (4.20-5.50); Red Cell Distribution Width 13.3 % (11.0-16.0); White Blood Count 14.5 X10*3/uL (4.8-10.8)
[2020-12-27 23:09] LABS: Lactic Acid 0.6 mmol/L (0.5-2.0)
[2020-12-27 23:11] VITALS: BP 162/67; PULSE 87; RESP 29; O2SAT 89
[2020-12-27 23:12] LABS: D Dimer < 200 NG/ML
[2020-12-27 23:16] LABS: Alanine Aminotransferase 27 U/L (0-31); Albumin Level 4.4 g/dL (3.5-5.0); Alkaline Phosphatase 62 U/L (39-117); Anion Gap 12 (12-20); Aspartate Amino Transferase 27 U/L (5-31); Bilirubin Total 0.4 mg/dL (0.0-1.0); Blood Urea Nitrogen 13 mg/dL (9-16); Calcium 9.4 mg/dL (8.4-10.2); Carbon Dioxide 28 mmol/L (22-29); Chloride 102 mmol/L (96-108); Creatinine Clr Calc Pharmacy 131.8; Estimated Glomerular Filt Rate > 60; Glucose Random 93 mg/dL (60-115); Magnesium 1.8 mg/dL (1.6-2.6); Potassium 4.3 mmol/L (3.3-5.1); Sodium 138 mmol/L (135-145); Total Protein 7.7 g/dL (6.5-8.0)
[2020-12-28] VITALS (17 sets, daily range): BP systolic 144–178; BP diastolic 67–84; PULSE 74–93; RESP 18–22; TEMP 36.8–36.9; O2SAT 91–98
[2020-12-28 02:28] LABS: Influenza A PCR NEGATIVE (Negative); Influenza B PCR NEGATIVE (Negative); Resp Syncy Virus RNA Qual PCR NEGATIVE (Negative); SARS COV2 PCR INHOUSE NEGATIVE (Negative)
[2020-12-28] MEDS: Albuterol Sulfate (0.083%) 2.5 MG/3 ML VIAL.NEB 10 MG INHALE (03:08)
--- NOTE | 2020-12-28 03:24 | PC.NURSE ---
Pt remains alert and oriented x4, calm and cooperative. Pt denies pain. Pt states SOB continues but has improved since coming to ER. Pt remains on non-rebreather mask O2 sat at 96%. Pt trailed on 5 liters O2 nasal cannula and failed O2 sat down to 88%. Pt educated on being admitted and agrees to plan. Tele monitor NSR. Pt resting in stretcher without complaints, will continue to monitor.
[2020-12-28] MEDS: Albuterol Sulfate (0.083%) 2.5 MG/3 ML VIAL.NEB 5 MG INHALE (03:35)
[2020-12-28 03:38] LABS: ABG Refer to POC result
[2020-12-28 03:39] LABS: ABG Base Excess 3.8 mmol/L; ABG HCO3 28 mmol/L (22-26); ABG pCO2 42 mmHg (32-45); ABG pCO2 TC 42 mmHg (32-45); ABG pH 7.43 (7.35-7.45); ABG pH TC 7.43 (7.35-7.45); ABG pO2 79 mmHg (83-108); ABG pO2 TC 78 (83-108)
[2020-12-28] MEDS: iohexoL 350 MG/ML 100 ML INFUS..BTL IV (04:58)
[2020-12-28] MEDS: cefTRIAXone sodium 1 GM in 0.9 % Sodium Chloride 50 ML IV (05:30)
[2020-12-28] MEDS: Doxycycline Hyclate 100 MG in 0.9 % Sodium Chloride 250 ML 166.67 MG IV (05:54)
--- NOTE | 2020-12-28 06:05 | P.HPHOSP_ITS ---
History of Present Illness Date of Service: 12/28/20 Chief Complaint: Shortness of breath 40-year-old female with past medical history of hypertension and asthma presents to hospital with complaints of shortness of breath, wheezing, and cough for the past 3 days. Patient is also complaining of chest pain worse with coughing. She is also having chills with no fever. Patient is homeless and currently lives in a senior care reports that her and her kids have been feeling sick. Patient denies any palpitation, no abdominal pain, no nausea or vomiting, no diarrhea constipation, no urinary symptoms and no lower extremity edema. Patient reports left hip pain for the past 3 months that has worsened and is significantly debilitating. The pain is 8/10, no recent trauma or injury. On arrival to the ED patient hemodynamically stable found to have O2 in the high 80s, respiratory rate of 29, sees blood pressure of 162/67 Patient currently on 10 L of non-rebreather satting 95% Labs are remarkable for VC count of 14.5, hemoglobin of 11.8, D-dimer less than 200, labs otherwise unremarkable. Influenza AB RSV negative. COVID-19 PCR negative. All other viral panel pending CT angiogram of the chest done showed no PE, shows scattered areas of patchy ground-glass opacities and consolidation bilaterally favoring an infectious process Patient will be admitted for further management Review of Systems Review of Systems: Yes all other systems are reviewed and are negative [facility] Medical History (Updated 12/28/20 @ 06:14 by Mario Coleman MD) Asthma History of ovarian cyst Hypertension Pertinent family history: Denies any pertinent family history Surgical History (Updated 12/28/20 @ 06:11 by Mario Coleman MD) No significant past surgical history Social History Alcohol intake: never Patient Tobacco Use Status: Never used Tobacco Use of substances other than those prescribed or required for medical reasons: No Advance Directives: No Advance Directives Information Provided: No Patient : No Meds Allergies Allergy/AdvReac Type Severity Reaction Status Date / Time morphine [MORPHINE] Allergy Unknown SHORTNESS Verified 12/27/20 21:31 OF BREATH Penicillins [PENICILLINS] Allergy Unknown RASH Verified 12/27/20 21:31 Active Medications: Current Medications Doxycycline Hyclate 100 mg/ (Sodium Chloride) 250 mls @ 166.67 mls/hr IV ONCE ONE Stop: 12/28/20 06:47 Last Admin: 12/28/20 05:54 Dose: 166.67 mls/hr Documented by: Physical Exam Vital Signs and Narrative: Vital Signs: Last Vital Signs Temp 98.3 F 12/28/20 04:00 Pulse 81 12/28/20 05:51 Resp 18 12/28/20 05:51 BP 144/72 H 12/28/20 05:51 Pulse Ox 95 12/28/20 05:51 Body Mass Index 44.9 Const: General: cooperative and no acute distress Orientation/consciousness: patient oriented x3 Eyes: General: appearance normal, both eyes and all related structures Pupils: Equal, round and reactive pupils present Resp: Other: Appears uncomfortable, wheezing, rhonchi bilaterally Effort & Inspection: normal respiratory effort Cardio: Rate: regular rate Rhythm: regular rhythm GI: Palpation (GI): Soft to palpation Auscultation: normal bowel sounds Skin: General skin exam: no rashes or lesions noted Neuro: General: patient oriented x3 Cranial nerves: Yes Equal, round and reactive pupils present Cognition (Neuro): normal cognition Extrem: General: Yes normal to inspection and Yes no pedal edema Results Labs CBC and Chem 7: 12/27/20 22:50 12/27/20 22:50 Labs: Laboratory Results - last 24 hr 12/27/20 12/27/20 12/27/20 22:21 22:50 22:50 MCV 94.5 MCH 30.8 MCHC 32.6 RDW 13.3 Plt Count 231 MPV 11.5 Immature Gran % (Auto) 0.2 Neut % (Auto) 73.8 H Lymph % (Auto) 11.3 L [place] % (Auto) 8.5 Eos % (Auto) 5.7 H Baso % (Auto) 0.5 Lymph # (Auto) 1.6 [place] # (Auto) 1.2 Eos # (Auto) 0.8 H Baso # (Auto) 0.1 Abs Immat Gran (auto) 0.03 Absolute Neuts (auto) 10.7 H Absolute Nucleated RBC 0.000 Nucleated RBC % (auto) 0.0 D-Dimer O2 Saturation ABG pH at Pt Temp ABG pH (Temp Correct) ABG pCO2 at Pt Temp ABG pCO2 (Temp Corrct ABG pO2 at Pt Temp ABG pO2 (Temp Correct ABG HCO3 ABG Base Excess (Actual) Anion Gap 12 Estim Creat Clear Calc 131.8 Estimated GFR > 60 Random Glucose 93 Lactic Acid Calcium 9.4 Magnesium 1.8 Total Bilirubin 0.4 AST 27 ALT 27 Alkaline Phosphatase 62 Total Protein 7.7 Albumin 4.4 Coronavirus (PCR) NEGATIVE Influenza Type A (PCR) NEGATIVE Influenza Type B (PCR) NEGATIVE RSV RNA Qual (PCR) NEGATIVE 12/27/20 12/27/20 12/28/20 22:50 22:50 03:33 MCV MCH MCHC RDW Plt Count MPV Immature Gran % (Auto) Neut % (Auto) Lymph % (Auto) [place] % (Auto) Eos % (Auto) Baso % (Auto) Lymph # (Auto) [place] # (Auto) Eos # (Auto) Baso # (Auto) Abs Immat Gran (auto) Absolute Neuts (auto) Absolute Nucleated RBC Nucleated RBC % (auto) D-Dimer < 200 O2 Saturation 94.0 ABG pH at Pt Temp 7.43 ABG pH (Temp Correct) 7.43 ABG pCO2 at Pt Temp 42 ABG pCO2 (Temp Corrct 42 ABG pO2 at Pt Temp 79 L ABG pO2 (Temp Correct 78 L ABG HCO3 28 H ABG Base Excess (Actual) 3.8 Anion Gap Estim Creat Clear Calc Estimated GFR Random Glucose Lactic Acid 0.6 Calcium Magnesium Total Bilirubin AST ALT Alkaline Phosphatase Total Protein Albumin Coronavirus (PCR) Influenza Type A (PCR) Influenza Type B (PCR) RSV RNA Qual (PCR) Imaging Radiologist's Impressions: Impressions Chest X-Ray 12/28/20 00:00 IMPRESSION: Streaky left basilar opacity suggesting atelectasis. Chest CTA 12/28/20 04:16 IMPRESSION: 1. No pulmonary embolus identified, though assessment of the distal vasculature is limited. 2. Scattered areas of patchy groundglass opacity and consolidation bilaterally, favoring an infectious/inflammatory etiology. Subsegmental atelectasis in the bilateral lower lobes. VTE: negative Assessment and Plan (1) Sepsis: Status: Acute (2) Acute respiratory failure with hypoxia: Status: Acute (3) Pneumonia: Qualifiers: Laterality: bilateral Lung location: unspecified part of lung Pneumonia type: due to unspecified organism Qualified Code(s): J18.9 - Pne umonia, unspecified organism Status: Acute (4) Asthma exacerbation: Status: Acute (5) Left hip pain: Status: Acute 32-year-old female with past medical history significant for asthma, hypertension presents to the hospital with complaints of shortness of breath, wheezing and cough. Found to have pneumonia CT of the chest # acute hypoxic respiratory failure - secondary to pneumonia - at this time will continue oxygen supplement - breathing treatments, dexamethasone and IV antibiotics - monitor respiratory status # sepsis - secondary to pneumonia - has hypoxia, leukocytosis, tachycardia - afebrile, no lactic acidosis - will start on IV antibiotics - follow cultures # pneumonia - viral versus bacterial - viral versus bacterial - has radiographic evidence of COVID-19 although COVID-19 PCR negative - full respiratory viral panel pending - IV antibiotics - dexamethasone - follow cultures # asthma exacerbation - history of asthma - has wheezing - started on dexamethasone, DuoNeb p.r.n. and scheduled # complaining of left hip pain - will obtain x-ray - no evidence of trauma no limited range of motion # hypertension - stable - does not appear to be on home antihypertensives at this time pending med review DVT prophylaxis: Lovenox Quality Stroke Does the patient have a stroke diagnosis?: No VTE Prior VTE?: No VTE Risk Level:: Medical - moderate - high VTE Device Contraindication: Treatment Not Indicated VTE Drug Contraindication: N/A - Med Ordered
[2020-12-28 06:13] LABS: Appearance Urine CLEAR; Color Urine YELLOW; Glucose Urine UA NEG (NEG); Leukocyte Esterase Urine NEG (NEG); Nitrite Urine NEG (NEG); PH 6.5 (5.0-8.0); UACC Culture Trigger NO; Urine Blood NEG (NEG); Urine Ketones NEG (NEG); Urine Protein TRACE MG/DL (NEG-TRACE)
[2020-12-28 06:40] LABS: Troponin-I High Sensitivity < 3.5 ng/L (<3.5-17.0)
[2020-12-28] MEDS: Albuterol/Iprat 2.5/0.5MG 3 ML AMPUL.NEB INHALE ×4 (08:00→19:19)
[2020-12-28 08:30] LABS: Rhino/Enterovirus PCR Detected (Not Detect.)
--- NOTE | 2020-12-28 11:44 | PC.NURSE ---
called methadone clinic for doseage pt takes 55 mg information faxed to pharmacy
[2020-12-28] MEDS: methylPREDNISolone Sod Succ 125 MG/2 ML VIAL 60 MG IVPUSH ×2 (12:17→19:39)
[2020-12-28] MEDS: 0.9 % Sodium Chloride Flush 3 ML SYRINGE IVFLUSH ×3 (12:17→19:39)
--- NOTE | 2020-12-28 12:55 | PHA.MEDREC ---
Pharmacy Consult ? Medication Reconciliation Pharmacy has completed the medication reconciliation. I spoke with pt who I thought confirmed labetalol 200 mg bid, but then she said 2 tablets twice a day. I clarified using numerous different ways of asking and she says she takes 2 tablets (400 mg) po twice a day. The Rx only supports 1 tablet BID. She only uses the flexeril when she needs to.
--- NOTE | 2020-12-28 13:57 | PC.NURSE ---
PT REMAINS ON O2 CONTINUES TO DESAT ON RA, TOLERATING PO ABLE TO AMB TO BR WITH O2 AND GETS WINDED.
--- NOTE | 2020-12-28 14:01 | PC.NURSE ---
REPORT GIVEN TO MARIBELL LEE
[2020-12-28] MEDS: Acetaminophen 325 MG TABLET 650 MG PO (17:41)
[2020-12-28] MEDS: Cyclobenzaprine HCl 10 MG TABLET PO (17:42)
[2020-12-28] MEDS: Labetalol HCL 200 MG TABLET 400 MG PO (19:38)
[2020-12-29] VITALS (12 sets, daily range): BP systolic 144–176; BP diastolic 64–92; PULSE 63–92; RESP 18–19; TEMP 36.1–37.2; O2SAT 92–98
[2020-12-29 06:45] LABS: MANUAL DIFF FLAG NO
[2020-12-29 06:50] LABS: Basophils Percent Auto 0.1 % (0-2); Hematocrit 34.5 % (37-47); Hemoglobin 11.3 g/dl (12.0-16.0); Imm Gran Abs Auto 0.08 X10*3/uL (0.00-0.03); Imm Gran Pct Auto 0.5 % (0.0-0.4); Lymphocytes Absolute Auto 1.8 X10*3/uL (1.2-4.9); Lymphocytes Percent Auto 11.2 % (20-40); Mean Corpuscular HGB Conc 32.8 g/dl (31.0-35.0); Mean Corpuscular Hemoglobin 31.2 pg (27.0-33.0); Mean Corpuscular Volume 95.3 fL (80-98); Mean Platelet Volume 12.3 fL (9.4-12.3); Monocytes Absolute Auto 1.2 X10*3/uL (0.1-1.2); Monocytes Percent Auto 7.5 % (2-11); Neutrophils Absolute Auto 12.9 X10*3/uL (2.0-8.3); Neutrophils Percent Auto 80.7 % (45-73); Platelet Count 241 X10*3/uL (160-400); Red Blood Count 3.62 X10*6/uL (4.20-5.50); Red Cell Distribution Width 13.9 % (11.0-16.0)
[2020-12-29 07:22] LABS: Anion Gap 13 (12-20); Blood Urea Nitrogen 15 mg/dL (9-16); Carbon Dioxide 25 mmol/L (22-29); Chloride 106 mmol/L (96-108); Creatinine Clr Calc Pharmacy 145.1; Estimated Glomerular Filt Rate > 60; Glucose Random 154 mg/dL (60-115); Potassium 4.2 mmol/L (3.3-5.1); Sodium 140 mmol/L (135-145)
[2020-12-29] MEDS: Albuterol/Iprat 2.5/0.5MG 3 ML AMPUL.NEB INHALE ×4 (07:51→19:25)
[2020-12-29] MEDS: Enoxaparin Sodium 40 MG/0.4 ML SYRINGE SUBCUT (08:26)
[2020-12-29] MEDS: methylPREDNISolone Sod Succ 125 MG/2 ML VIAL 60 MG IVPUSH ×2 (08:27→20:36)
[2020-12-29] MEDS: Labetalol HCL 200 MG TABLET 400 MG PO ×2 (08:27→20:36)
[2020-12-29] MEDS: 0.9 % Sodium Chloride Flush 3 ML SYRINGE IVFLUSH ×3 (08:28→23:24)
[2020-12-29] MEDS: Cyclobenzaprine HCl 10 MG TABLET PO ×3 (08:32→23:16)
[2020-12-29] MEDS: Ibuprofen 400 MG TABLET PO ×3 (08:32→23:18)
--- NOTE | 2020-12-29 09:44 | MHC.CM.PN ---
Female 40 DX RSV PNA. She lives in a [place] apartment [address] [place] [address]. She has 7 children. Her 18 yr old is caring for the younger kids. They go to day care daily. She has a 12 yr old home with Covid(asymptomatic day 5 of quarentine). Her PCP is Dr Crews. Information re HCP was provided. She declined HCP assist. Patient will be weaned starting today. DP home no services via [facility] shuttle.
[2020-12-29] MEDS: methADONE HCl 20 MG/2 ML ORAL.CONC 55 MG PO (09:48)
--- NOTE | 2020-12-29 10:29 | P.PNIM_ITS ---
Subjective Subjective Date of Service: 12/29/20 Interval History: cc: sob interval history: improving, still sob on exertion Cardiovascular Cardiovascular: Reports no additional cardiovascular complaints Gastrointestinal Gastrointestinal: Reports no additional gastrointestinal complaints Physical Exam Vital Signs: Vital Signs: Last Vital Signs Temp 97.0 F 12/29/20 03:50 Pulse 68 12/29/20 08:27 Resp 18 12/29/20 07:26 BP 176/92 H 12/29/20 08:27 Pulse Ox 98 12/29/20 07:26 Body Mass Index 44.9 General: AO X 3, no acute distress Resp: Crackles, diminished, no accessory muscles used CVS: S1,S2,RRR GI: soft, non tender, non distended Neuro: motor grossly intact, alert Psych: appropriate affect, appropriate insight Objective Data Active Medications Acetaminophen (Acetaminophen 325 Mg Tablet) 650 mg PO Q6H PRN PRN Reason: Pain, Mild (Pain Scale 1-3) Last Admin: 12/28/20 17:41 Dose: 650 mg Documented by: ISAURA Albuterol/Ipratropium (Albuterol/Iprat 2.5/0.5mg 3 Ml Ampul.Neb) 3 ml INHALE RQ4H WHILE AWAKE [facility] Last Admin: 12/29/20 07:51 Dose: 3 ml Documented by: EDA Albuterol/Ipratropium (Albuterol/Iprat 2.5/0.5mg 3 Ml Ampul.Neb) 3 ml INHALE RQ4H PRN PRN Reason: Shortness of Breath/Wheezing Cyclobenzaprine HCl (Cyclobenzaprine Hcl 10 Mg Tablet) 10 mg PO TID PRN PRN Reason: Muscle Spasm Last Admin: 12/29/20 08:32 Dose: 10 mg Documented by: ISAURA Docusate Sodium (Docusate Sodium 100 Mg Capsule) 100 mg PO DAILY PRN PRN Reason: Constipation Enoxaparin Sodium (Enoxaparin Sodium 40 Mg/0.4 Ml Syringe) 40 mg SUBCUT Q24H [facility] Last Admin: 12/29/20 08:26 Dose: 40 mg Documented by: ISAURA Ibuprofen (Ibuprofen 400 Mg Tablet) 400 mg PO Q6H PRN PRN Reason: pain Last Admin: 12/29/20 08:32 Dose: 400 mg Documented by: ISAURA Labetalol HCl (Labetalol Hcl 200 Mg Tablet) 400 mg PO BID [facility]; Protocol Last Admin: 12/29/20 08:27 Dose: 400 mg Documented by: ISAURA Methadone HCl (Methadone Hcl 20 Mg/2 Ml Oral.Conc) 55 mg PO DAILY [facility] Last Admin: 12/29/20 09:48 Dose: 55 mg Documented by: ISAURA Methylprednisolone Sodium Succinate (Methylprednisolone Sod Succ 125 Mg/2 Ml Vial) 60 mg IVPUSH Q12H [facility] Last Admin: 12/29/20 08:27 Dose: 60 mg Documented by: ISAURA Ondansetron HCl (Ondansetron Hcl 4 Mg/2 Ml Vial) 4 mg IVPUSH Q8H PRN PRN Reason: Nausea and Vomiting Pharmacy Consult (Consult Rx Perform Med Rec) 1 each MISCELLANE ONCE PRN PRN Reason: Consult order Sodium Chloride (0.9 % Sodium Chloride Flush 3 Ml Syringe) 3 ml IVFLUSH QSHIFT [facility] Last Admin: 12/29/20 08:28 Dose: 3 ml Documented by: ISAURA Labs CBC & Chem 7: 12/29/20 05:45 12/29/20 05:45 Labs: Laboratory Results - last 24 hr 12/29/20 12/29/20 05:45 05:45 MCV 95.3 MCH 31.2 MCHC 32.8 RDW 13.9 Plt Count 241 MPV 12.3 Immature Gran % (Auto) 0.5 H Neut % (Auto) 80.7 H Lymph % (Auto) 11.2 L [place] % (Auto) 7.5 Eos % (Auto) 0.0 Baso % (Auto) 0.1 Lymph # (Auto) 1.8 [place] # (Auto) 1.2 Eos # (Auto) 0.0 Baso # (Auto) 0.0 Abs Immat Gran (auto) 0.08 H Absolute Neuts (auto) 12.9 H Absolute Nucleated RBC 0.000 Nucleated RBC % (auto) 0.0 Anion Gap 13 Estim Creat Clear Calc 145.1 Estimated GFR > 60 Random Glucose 154 H Calcium 9.0 Microbiology Microbiology Results: Microbiology 12/28/20 00:48 Blood Culture - Preliminary Blood - Venous No growth after 24 hours. 12/27/20 22:50 Blood Culture - Preliminary Blood - Venous No growth after 24 hours. Assessment and Plan (1) Acute respiratory failure with hypoxia: Status: Acute (2) Rhinovirus: Status: Acute (3) Hypertension: Status: Acute (4) Opioid dependence: Status: Acute Assessment and Plan: 40F presented with sob, found to have rhinovirus acute hypoxic respiratory failure, viral sepsis, due to rhinovirus pneumonia with mild intermittent asthma exacerbation steroids, bronchodilators wean o2 as tolerated high risk due to htn and morbid obesity htn labetolol opiate dependence methadone morbid obesity weight loss recommended Quality Stroke Does the patient have a stroke diagnosis?: No VTE Prior VTE?: No VTE Risk Level:: Medical - moderate - high VTE Device Contraindication: Treatment Not Indicated VTE Drug Contraindication: N/A - Med Ordered
--- NOTE | 2020-12-29 11:09 | P.CDIC_ITS ---
CDI Concurrent Query Documentation Clarification: PHYSICIAN'S DOCUMENTATION REQUEST Date of Query: 12/29/20 1113 Patient Name: Shyann Shaffer Admit Date: 12/28/20 Dear Doctor, A review of the medical record indicates additional documentation may be needed. Please review below and update the documentation accordingly. Covid-19 Treating Covid-19 Ruled out Covid-19 Presumed Other or undetermined Risk Factors/Clinical Indicators/Treatments ED: Course narrative - Covid - 19 pneumonia - Exposure to Covid-19 CT Angiogram of chest scattered area of patchy ground-glass opacities. H&P: has radiographic evidence of Covid-19 although Covid PCR negative. Dexamethasone, IV Antibiotics, Oxygen. Viral pneumonia vs. bacterial pneumonia. The request is for one of the following: * Additional documentation to support the condition. Please clarify the documentation of [include the diagnosis]: * [ ] remains a known or suspected condition for this patient and is further supported by (include additional documentation in the medical record) * [ ] has been ruled out and a more appropriate diagnosis for this patient?s condition is * Other (please specify) * Unable to determine Use of terms such as suspected, likely, concern for, or probable (associated with a specific diagnosis that is being evaluated, monitored, or treated as if it exists) are acceptable and can be coded in the inpatient setting, when documented at the time of discharge. Thank you, Betty Garza [facility], CDIS Extension: [phone] Please use your independent medical judgment in providing your response. THIS QUERY IS PART OF THE PERMANENT MEDICAL RECORD Provider Response: Other Other Diagnosis: rhino virus not covid
[2020-12-30] VITALS (12 sets, daily range): BP systolic 140–195; BP diastolic 79–91; PULSE 56–92; RESP 16–20; TEMP 36.1–36.7; O2SAT 91–99
[2020-12-30] MEDS: Albuterol/Iprat 2.5/0.5MG 3 ML AMPUL.NEB INHALE ×4 (08:27→20:24)
[2020-12-30] MEDS: Ibuprofen 400 MG TABLET PO (09:13)
[2020-12-30] MEDS: 0.9 % Sodium Chloride Flush 3 ML SYRINGE IVFLUSH ×3 (09:14→21:14)
[2020-12-30] MEDS: Labetalol HCL 200 MG TABLET 400 MG PO ×2 (09:14→21:05)
[2020-12-30] MEDS: methylPREDNISolone Sod Succ 125 MG/2 ML VIAL 60 MG IVPUSH ×2 (09:14→21:05)
[2020-12-30] MEDS: methADONE HCl 20 MG/2 ML ORAL.CONC 55 MG PO (09:14)
[2020-12-30] MEDS: Cyclobenzaprine HCl 10 MG TABLET PO (09:18)
[2020-12-30] MEDS: Enoxaparin Sodium 40 MG/0.4 ML SYRINGE SUBCUT (09:21)
--- NOTE | 2020-12-30 10:56 | P.PNIM_ITS ---
Subjective Subjective Date of Service: 12/30/20 Interval History: cc: sob interval history: much improved, but still boredeline hypoxic and not tolerating minimal exertion Cardiovascular Cardiovascular: Reports no additional cardiovascular complaints Gastrointestinal Gastrointestinal: Reports no additional gastrointestinal complaints Physical Exam Vital Signs: Vital Signs: Last Vital Signs Temp 98.1 F 12/30/20 07:42 Pulse 66 12/30/20 09:14 Resp 20 12/30/20 07:42 BP 195/91 H 12/30/20 09:14 Pulse Ox 92 12/30/20 10:48 Body Mass Index 44.9 General: AO X 3, no acute distress Resp:? Crackles, diminished, no accessory muscles used CVS: S1,S2,RRR GI: soft, non tender, non distended Neuro:? motor grossly intact, alert Psych: appropriate affect, appropriate insight? Objective Data Active Medications Acetaminophen (Acetaminophen 325 Mg Tablet) 650 mg PO Q6H PRN PRN Reason: Pain, Mild (Pain Scale 1-3) Last Admin: 12/28/20 17:41 Dose: 650 mg Documented by: ISAURA Albuterol/Ipratropium (Albuterol/Iprat 2.5/0.5mg 3 Ml Ampul.Neb) 3 ml INHALE RQ4H WHILE AWAKE [facility] Last Admin: 12/30/20 08:27 Dose: 3 ml Documented by: KESHIA Albuterol/Ipratropium (Albuterol/Iprat 2.5/0.5mg 3 Ml Ampul.Neb) 3 ml INHALE R Q4H PRN PRN Reason: Shortness of Breath/Wheezing Cyclobenzaprine HCl (Cyclobenzaprine Hcl 10 Mg Tablet) 10 mg PO TID PRN PRN Reason: Muscle Spasm Last Admin: 12/30/20 09:18 Dose: 10 mg Documented by: CONNIE Docusate Sodium (Docusate Sodium 100 Mg Capsule) 100 mg PO DAILY PRN PRN Reason: Constipation Enoxaparin Sodium (Enoxaparin Sodium 40 Mg/0.4 Ml Syringe) 40 mg SUBCUT Q24H [facility] Last Admin: 12/30/20 09:21 Dose: 40 mg Documented by: CONNIE Ibuprofen (Ibuprofen 400 Mg Tablet) 400 mg PO Q6H PRN PRN Reason: pain Last Admin: 12/30/20 09:13 Dose: 400 mg Documented by: CONNIE Labetalol HCl (Labetalol Hcl 200 Mg Tablet) 400 mg PO BID [facility]; Protocol Last Admin: 12/30/20 09:14 Dose: 400 mg Documented by: CONNIE Methadone HCl (Methadone Hcl 20 Mg/2 Ml Oral.Conc) 55 mg PO DAILY [facility] Last Admin: 12/30/20 09:14 Dose: 55 mg Documented by: CONNIE Methylprednisolone Sodium Succinate (Methylprednisolone Sod Succ 125 Mg/2 Ml Vial) 60 mg IVPUSH Q12H [facility] Last Admin: 12/30/20 09:14 Dose: 60 mg Documented by: CONNIE Ondansetron HCl (Ondansetron Hcl 4 Mg/2 Ml Vial) 4 mg IVPUSH Q8H PRN PRN Reason: Nausea and Vomiting Pharmacy Consult (Consult Rx Perform Med Rec) 1 each MISCELLANE ONCE PRN PRN Reason: Consult order Sodium Chloride (0.9 % Sodium Chloride Flush 3 Ml Syringe) 3 ml IVFLUSH QSHIFT [facility] Last Admin: 12/30/20 09:14 Dose: 3 ml Documented by: CONNIE Labs CBC & Chem 7: 12/29/20 05:45 12/29/20 05:45 Microbiology Microbiology Results: Microbiology 12/28/20 00:48 Blood Culture - Preliminary Blood - Venous No growth after 48 hours. 12/27/20 22:50 Blood Culture - Preliminary Blood - Venous No growth after 48 hours. Assessment and Plan (1) Acute respiratory failure with hypoxia: Status: Acute (2) Rhinovirus: Status: Acute (3) Hypertension: Status: Acute (4) Opioid dependence: Status: Acute Assessment and Plan: 40F presented with sob, found to have rhinovirus acute hypoxic respiratory failure, viral sepsis, due to rhinovirus pneumonia with mild intermittent asthma exacerbation steroids, bronchodilators wean o2 as tolerated - on room air at rest, but dips into high 80s with minimal exertion high risk due to htn and morbid obesity htn labetolol opiate dependence methadone morbid obesity weight loss recommended Quality Stroke Does the patient have a stroke diagnosis?: No VTE Prior VTE?: No VTE Risk Level:: Medical - moderate - high VTE Device Contraindication: Treatment Not Indicated VTE Drug Contraindication: N/A - Med Ordered
--- NOTE | 2020-12-30 14:08 | MHC.CM.PN ---
Female DX RSV She continues to require supplemental oxygen. DP is to home no services. She will be weaned prior to discharge. She will need to take the [facility] shuttle home. Anticipate discharge tomorrow per MD rounds.
[2020-12-31 04:00] VITALS: BP 142/68; PULSE 79; RESP 18; TEMP 36.8; O2SAT 95
[2020-12-31 07:46] VITALS: BP 152/86; PULSE 68; RESP 20; TEMP 36.9; O2SAT 96
[2020-12-31] MEDS: Albuterol/Iprat 2.5/0.5MG 3 ML AMPUL.NEB INHALE ×2 (07:57→11:09)
[2020-12-31 07:58] VITALS: PULSE 65; O2SAT 94
[2020-12-31] MEDS: Enoxaparin Sodium 40 MG/0.4 ML SYRINGE SUBCUT (09:14)
[2020-12-31] MEDS: 0.9 % Sodium Chloride Flush 3 ML SYRINGE IVFLUSH (09:14)
[2020-12-31] MEDS: methylPREDNISolone Sod Succ 125 MG/2 ML VIAL 60 MG IVPUSH (09:15)
[2020-12-31] MEDS: methADONE HCl 20 MG/2 ML ORAL.CONC 55 MG PO (09:15)
[2020-12-31 09:16] VITALS: BP 152/86; PULSE 68
[2020-12-31] MEDS: Labetalol HCL 200 MG TABLET 400 MG PO (09:16)
[2020-12-31] MEDS: Cyclobenzaprine HCl 10 MG TABLET PO (09:23)
[2020-12-31] MEDS: Ibuprofen 400 MG TABLET PO (09:23)
--- NOTE | 2020-12-31 11:29 | PM.DS ---
DS: Providers Provider Date of Service: 12/31/20 Date of admission: 12/28/20 06:05 Primary care physician: Unknown Physician DS: Diagnosis Discharge Diagnosis (1) Acute respiratory failure with hypoxia: Status: Acute (2) Rhinovirus: Status: Acute (3) Hypertension: Status: Acute (4) Opioid dependence: Status: Acute DS: Summary Status at Discharge Cognitive/behavioral status at discharge: patient was admitted for acute hypoxic respiratory failure due to rhinovirus pneumonia complicated by exacerbation of mild intermittent asthma. she was treated with steroids and bronchodilators, symptoms improved, she was able to be weaned off oxygen. she will be discharged home on 5 more days of predniosne. Time Spent with Patient Time attestation: Total time spent providing and/or coordinating discharge services: Discharge coordination time: Greater than 30 minutes Quality: Stroke Does the patient have a stroke diagnosis?: No Physical Exam Vital Signs: Vital Signs: Last Vital Signs Temp 98.4 F 12/31/20 07:46 Pulse 68 12/31/20 09:16 Resp 20 12/31/20 07:46 BP 152/86 H 12/31/20 09:16 Pulse Ox 96 12/31/20 07:46 Body Mass Index 44.9 General: AO X 3, no acute distress Resp: CTA bilateral, no accessory muscles used CVS: S1,S2,RRR GI: soft, non tender, non distended Neuro: motor grossly intact, alert Psych: appropriate affect, appropriate insight DS: Data Data Completed and Pending Labs on day of discharge: Preliminary micro results at discharge 12/28/20 00:48 Blood Culture - Preliminary Blood - Venous No growth after 48 hours. 12/27/20 22:50 Blood Culture - Preliminary Blood - Venous No growth after 48 hours. Discharge Plan Discharge Patient Disposition: Home, Self-Care Discharge Diagnosis: rhinovirus pneumonia, resp failure Referrals: Physician,Unknown [Primary Care Provider] - 1 Week Discharge Medications: New prednisone 20 mg tablet 40 mg PO DAILY Qty: 10 RF: 0 Continued labetalol 200 mg tablet 2 tab PO BID RF: 0 methadone [Methadone Intensol] 10 mg/mL Concentrate 55 mg PO DAILY RF: 0 cyclobenzaprine 10 mg tablet 1 tab PO TID PRN (Reason: Muscle Spasm) RF: 0 albuterol sulfate [ProAir HFA] 90 mcg/actuation HFA aerosol inhaler 2 puff PO QID PRN (Reason: Shortness Of Breath) RF: 0 Stand Alone Forms: Patient Portal Discharge page Care Plan Goals: recovery Health Concerns: rhinovirus Plan of Treatment: predniosne, mucinex Assessment: see above
--- NOTE | 2020-12-31 11:47 | MHC.CM.PN ---
Female 40 DX PNA She is discharged today to home . No services ordered. Patient has been provided with a coupon for [employer] [facility]. She will transport at 12:00pm.
== END 2020-12-31 11:55 | disposition home or self-care (01) | DRG 720 ==
LOC: HO.ED 12-28 05:30 → HO.EDOVER 12-28 06:24 → HO.IMC 12-28 10:43
PROVIDERS: Internal Medicine; Admitting Provider Internal Medicine; Emergency Provider Emergency Medicine; PCP Internal Medicine; Visit Provider Internal Medicine
DX: A41.89 Other specified sepsis (principal); J96.01 Acute respiratory failure with hypoxia; J12.89 Other viral pneumonia; F11.20 Opioid dependence, uncomplicated; J45.51 Severe persistent asthma with (acute) exacerbation; I10 Essential (primary) hypertension; M25.552 Pain in left hip; F17.210 Nicotine dependence, cigarettes, uncomplicated; Z71.6 Tobacco abuse counseling; B97.89 Other viral agents as the cause of diseases classified elsewhere; Z20.822 Contact with and (suspected) exposure to COVID-19; Z88.0 Allergy status to penicillin; Z88.5 Allergy status to narcotic agent; Z79.899 Other long term (current) drug therapy
CPT/HCPCS: 0241U; 36415; 71045; 71275; 73502; 80048; 80053; 81003; 82803; 83605; 83735; 84484; 85025; 85379; 87040; 87633; 94640; 94644; 94664; 99285; J0696; J1650; J2930; Q9967

== ENCOUNTER 2021-02-11 04:36 | Emergency (ER) | payer MEDICAID, SELFPAY ==
[2021-02-11 04:46] VITALS: BP 153/90; PULSE 80; RESP 16; TEMP 36.6; O2SAT 98; BMI 47.7
--- NOTE | 2021-02-11 04:55 | PC.NURSE ---
RSV OBTAINED AND PT MOVED TO FAMILY ROOM FOR FURTHER EVAL. PT C/O SORE THROAT AND CONGESTED LEFT NOSTRIL. +
[2021-02-11 05:29] LABS: Strep A Nucleic Acid Negative (Negative)
[2021-02-11 05:36] LABS: Influenza A PCR NEGATIVE (Negative); Influenza B PCR NEGATIVE (Negative); Resp Syncy Virus RNA Qual PCR NEGATIVE (Negative); SARS COV2 PCR INHOUSE NEGATIVE (Negative)
--- NOTE | 2021-02-11 06:52 | ED_ITS ---
HPI - URI/Sore Throat General Chief Complaint: Upper Respiratory Symptoms Stated Complaint: COLD LIKE SYMPTOMS Time Seen by Provider: 02/11/21 06:52 Source: patient Mode of arrival: ambulatory Limitations: no limitations History of Present Illness HPI Narrative: sore throat and noticed that her uvula was swollen. No fever, no new medication MD elicited complaint: sore throat Onset (ago): day(s) Consistency: constant Severity: mild Exacerbating factors: swallowing Relieving factors: nothing Associated symptoms: denies other symptoms Related Data Home Medications Medication Instructions Recorded Confirmed albuterol sulfate 90 mcg/actuation 2 puff PO QID PRN 12/28/20 12/28/20 aerosol inhaler (ProAir HFA) cyclobenzaprine 10 mg tablet 1 tab PO TID PRN 12/28/20 12/28/20 labetalol 200 mg tablet 2 tab PO BID 12/28/20 12/28/20 methadone 10 mg/mL oral 55 mg PO DAILY 12/28/20 12/28/20 concentrate (Methadone Intensol) Previous Rx's Medication Instructions Recorded prednisone 20 mg tablet 40 mg PO DAILY #10 tab 12/31/20 prednisone 20 mg tablet 60 mg PO DAILY #12 tab 02/11/21 Allergies Allergy/AdvReac Type Severity Reaction Status Date / Time morphine [MORPHINE] Allergy Unknown SHORTNESS Verified 12/27/20 21:31 OF BREATH Penicillins [PENICILLINS] Allergy Unknown RASH Verified 12/27/20 21:31 Review of Systems Constitutional: Constitutional: Reports no additional constitutional co mplaints Eyes: Eyes: Reports no additional eye complaints ENT: Denies dizziness Cardiovascular: Cardiovascular: Reports no additional cardiovascular complaints Respiratory: Respiratory: Reports as per HPI Gastrointestinal: Gastrointestinal: Reports no additional gastrointestinal complaints Genitourinary: Genitourinary: Reports no additional female genitourinary complaints Musculoskeletal: Musculoskeletal: Reports no additional musculoskeletal complaints Integumentary/Breasts: Skin/Breast: Denies rash Neurologic: Reports system reviewed and no additional complaints, except as documented, Denies dizziness and Denies Sensory deficit (Neuro) Psychiatric: Psychiatric: Denies anxiety PMFSH Past Medical History Medical History Asthma History of ovarian cyst Hypertension Opioid dependence Surgical History No significant past surgical history Social History Social History Household Members: Children Housing: Other Do you presently have visiting nurse or other home services: No Alcohol intake: never Patient Tobacco Use Status: Current everyday Tobacco user Tobacco use type: Cigarette Cigarette Packs Per Day: 0.5 Cigarettes Per Day: 10.0 Advance Directives: Yes Advance Directives Information Provided: Yes Advance Directives on File: Yes Advance Directives Date on File: 12/28/20 Patient : No service: No Current occupational status: unemployed Physical Exam Vital Signs: Vital Signs: Last Vital Signs Temp 97.8 F 02/11/21 04:46 Pulse 80 02/11/21 04:46 Resp 16 02/11/21 04:46 BP 153/90 H 02/11/21 04:46 Pulse Ox 98 02/11/21 04:46 Body Mass Index 47.7 Const: Other: obese female looking older than stated age Orientation/consciousness: oriented to person and patient oriented x3 Limitations: no limitations HENMT: Other: pharynx with ulcerations on uvual with edema, no exudate, Tms normal. enlarged cervical adenopathy Ears: external ears normal General nose exam: Normal external nose present Mouth: Normal oral and palatal mucosa present and oropharynx normal Throat: Yes posterior oropharynx normal Eyes: General: appearance normal, both eyes and all related structures Neck: Other: supple Neck: Yes normal visual inspection Chest: Chest palpation & inspection: normal inspection of the chest Resp: Auscultation: clear to auscultation bilaterally Cardio: Jugular venous distension: no JVD Rate: regular rate Rhythm: regular rhythm Heart sounds: S1 normal heart sound present and S2 normal heart sound present GI: Inspection: Yes normal to inspection Palpation (GI): Soft to palpation, nontender and No hepatosplenomegaly present Auscultation: normal bowel sounds : General: Yes no CVA tenderness Back/Spine/Pelvis: Back: no CVA tenderness Skin: General skin exam: no rashes or lesions noted Neuro: General: oriented to person and patient oriented x3 Cranial nerves: Yes CN's II-XII intact bilaterally Motor exam (neuro): 5/5 motor strength present throughout Sensory Exam: No Sensory deficit (Neuro) Extrem: General: Yes normal to inspection Psych: Appearance: grossly normal Course Reevaluation(s) Reevaluation #1: patient with viral pharyngitis affecting mostly her uvula. Will give a shot of decadron and dc on prednisone. COVID, flu, and strep all negative Time: 07:00 MDM - URI/Sore Throat Lab Data Labs: Lab Results 02/11/21 02/11/21 Range/Units 04:52 05:09 Influenza Type A (PCR) NEGATIVE (Negative) Influenza Type B (PCR) NEGATIVE (Negative) RSV RNA Qual (PCR) NEGATIVE (Negative) SARS-CoV-2 RNA (RT-PCR) NEGATIVE (Negative) S. pyogenes GrpA YVETTE Negative (Negative) Discharge Plan Discharge Clinical Impression: Viral infection Pharyngitis Qualifiers: Pharyngitis/tonsillitis etiology: unspecified etiology Qualified Code(s): J02.9 - Acute pharyngitis, unspecified Patient Disposition: Home, Self-Care Instructions: Pharyngitis (ED) Additional Instructions: salt water gargles as often as possible Prescriptions: New prednisone 20 mg tablet 60 mg PO DAILY Qty: 12 RF: 0 No Action labetalol 200 mg tablet 2 tab PO BID RF: 0 methadone [Methadone Intensol] 10 mg/mL Concentrate 55 mg PO DAILY RF: 0 cyclobenzaprine 10 mg tablet 1 tab PO TID PRN (Reason: Muscle Spasm) RF: 0 albuterol sulfate [ProAir HFA] 90 mcg/actuation HFA aerosol inhaler 2 puff PO QID PRN (Reason: Shortness Of Breath) RF: 0 prednisone 20 mg tablet 40 mg PO DAILY Qty: 10 RF: 0 Referrals: Physician,Unknown J [Primary Care Provider] - 10 days
[2021-02-11] MEDS: dexAMETHasone sod phosphate 10 MG/ML VIAL IM (07:34)
== END 2021-02-11 07:37 | disposition home or self-care (01) ==
PROVIDERS: Emergency Provider Emergency Medicine
DX: B34.9 Viral infection, unspecified (principal); J02.9 Acute pharyngitis, unspecified; J45.909 Unspecified asthma, uncomplicated; I10 Essential (primary) hypertension; Z20.822 Contact with and (suspected) exposure to COVID-19
CPT/HCPCS: 0241U; 36415; 87651; 96372; 99283; 99284; J1100

== ENCOUNTER 2021-03-23 21:08 | Emergency (ER) | payer MEDICAID, SELFPAY ==
[2021-03-23 21:24] VITALS: BP 159/80; PULSE 95; RESP 16; O2SAT 98; BMI 39.9
[2021-03-23 22:05] LABS: COVID-19 Test Positive (Negative)
--- NOTE | 2021-03-23 23:06 | ED_ITS ---
HPI - General Adult General Chief complaint: General Medical Stated complaint: headache and body aches Time Seen by Provider: 03/23/21 23:06 Source: patient Mode of arrival: ambulatory History of Present Illness HPI narrative: 41-year-old female with a past medical history of asthma, hypertension, presenting to the ED complaining of headache, myalgias/body aches x a couple days requesting COVID-19 testing. Reports son at home is COVID-19 +. Denies fever, chills, cough, CP/SOB, ear pain, sore throat Onset (ago): day(s) Related Data Home Medications Medication Instructions Recorded Confirmed albuterol sulfate 90 mcg/actuation 2 puff PO QID PRN 12/28/20 12/28/20 aerosol inhaler (ProAir HFA) cyclobenzaprine 10 mg tablet 1 tab PO TID PRN 12/28/20 12/28/20 labetalol 200 mg tablet 2 tab PO BID 12/28/20 12/28/20 methadone 10 mg/mL oral 55 mg PO DAILY 12/28/20 12/28/20 concentrate (Methadone Intensol) Previous Rx's Medication Instructions Recorded prednisone 20 mg tablet 40 mg PO DAILY #10 tab 12/31/20 prednisone 20 mg tablet 60 mg PO DAILY #12 tab 02/11/21 Allergies Allergy/AdvReac Type Severity Reaction Status Date / Time morphine [MORPHINE] Allergy Unknown SHORTNESS Verified 03/23/21 21:27 OF BREATH Penicillins [PENICILLINS] Allergy Unknown RASH Verified 03/23/21 21:27 Review of Systems Review of Systems: Constitutional: No Fever, No Chills ENT/Mouth: No Ear Pain, No Nasal Congestion, No Sinus Pain, No Hoarseness, No sore throat, No Rhinorrhea, No Swallowing Difficulty Cardiovascular: No Chest Pain, No SOB Respiratory: No Cough, No Sputum, No Wheezing Gastrointestinal: No Nausea, No Vomiting, No Diarrhea, No Constipation, No Abdominal pain Musculoskeletal: No joint pain, + Myalgias Skin: No Skin Lesions, No rash Neuro: No Weakness, +headache Yes all other systems are reviewed and are negative [facility] Past Medical History Attestation statement: The following information was validated with the patient. Medical History Asthma History of ovarian cyst Hypertension Opioid dependence Surgical History No significant past surgical history Social History Social History Household Members: Children Housing: Other Do you presently have visiting nurse or other home services: No Alcohol intake: never Patient Tobacco Use Status: Current everyday Tobacco user Tobacco use type: Cigarette Cigarette Packs Per Day: 0.5 Cigarettes Per Day: 10.0 Advance Directives: Yes Advance Directives on File: Yes Advance Directives Date on File: 12/28/20 service: No Current occupational status: unemployed Physical Exam Vital Signs: Vital Signs: Last Vital Signs Pulse 95 03/23/21 21:24 Resp 16 03/23/21 21:24 BP 159/80 H 03/23/21 21:24 Pulse Ox 98 03/23/21 21:24 BMI result Body Mass Index 39.9 Const: General: cooperative, healthy appearing and no acute distress Orientation/consciousness: patient oriented x3 Limitations: no limitations HENMT: Head: Yes normal to inspection and Yes atraumatic Ears: hearing obed ssly normal bilaterally General nose exam: Normal external nose present Face and sinus: Yes normal facial exam Eyes: General: appearance normal, both eyes and all related structures EOM: EOMs intact bilaterally Neck: Neck: Yes normal visual inspection and Yes no meningeal signs Resp: Effort & Inspection: normal respiratory effort and no respiratory distre ss Auscultation: clear to auscultation bilaterally, no rales, no rhonchi and no wheezes Cardio: Rate: regular rate Heart sounds: S1 normal heart sound present and S2 normal heart sound present GI: Inspection: Yes normal to inspection Palpation (GI): Soft to palpation, nontender, no guarding and not rigid Skin: Rashes: no rashes Wounds: no wounds Neuro: General: patient oriented x3 and no meningeal signs Gait exam (Neuro): Normal gait present Extrem: General: Yes normal to inspection Course Course Course Narrative: -COVID-19 positive. Discussed worrisome signs and symptoms and strict return precautions Medical Decision Making MDM Narrative Medical decision making narrative: 41-year-old female with a past medical history of asthma, hypertension, presenting to the ED complaining of headache, myalgias/body aches x a couple days requesting COVID-19 testing. On exam vital signs stable, NAD/nontoxic, physical exam as above, lungs CTA. Concern for viral syndrome/COVID-19. Low concern for pneumonia/ACS/SAH or meningitis plan: COVID-19 testing Medical Records Medical records reviewed: Yes I reviewed the patient's medical records. Lab Data Lab results reviewed: Yes I reviewed the patient's lab results. Labs: Lab Results 03/23/21 Range/Units 21:51 COVID-19 (PACO) Positive A (Negative) COVID-19 Clin Com See Note Discharge Plan Discharge Clinical Impression: COVID-19 Patient Disposition: Home, Self-Care Instructions: COVID-19 (Coronavirus Disease 2019) (ED) Additional Instructions: At this time you will be okay for discharge. Please self isolate for 10-14 days. Do not expose yourself to others. You may not go to work or school. Please continue to follow cold instructions and wash your hands frequently. You may take Tylenol / Motrin as directed on the bottle for pain or fever. If you have constant or persistent shortness of breath, fever unresolved with medications, chest pain, or your unable to eat or drink please return to the ED CDC Guidelines for home isolation: - Stay away from others - WEAR A MASK if you are sick AND STAY HOME - Cover your mouth and nose with a tissue when you cough or sneeze. Dispose of tissues in a lined trash can and wash your hands immediately with soap and water for at least 20 seconds. If soap and water are not available, clean hands with alcohol-based hand marketing and communications officer that contains at least 60% alcohol. - Clean your hands often with soap and water for at least 20 seconds - Avoid touching your eyes, nose and mouth with unwashed hands - Do not share dishes, drinking glasses, cups, eating utensils, towels, or bedding with other people in your home. After using these items, wash them thoroughly with soap and water or put in the charge auditor. - Clean high-touch surfaces in your isolation area ( sick room and bathroom) every day; let a caregiver clean and disinfect high-touch surfaces in other area s of the home. Clean the area or item with soap and water or another detergent if it is dirty. Then, use a household disinfectant. - Limit contact with pets and animals: If you must care for a pet, wash your hands before and after interacting with them) Prescriptions: No Action labetalol 200 mg tablet 2 tab PO BID RF: 0 methadone [Methadone Intensol] 10 mg/mL Concentrate 55 mg PO DAILY RF: 0 cyclobenzaprine 10 mg tablet 1 tab PO TID PRN (Reason: Muscle Spasm) RF: 0 albuterol sulfate [ProAir HFA] 90 mcg/actuation HFA aerosol inhaler 2 puff PO QID PRN (Reason: Shortness Of Breath) RF: 0 prednisone 20 mg tablet 40 mg PO DAILY Qty: 10 RF: 0 prednisone 20 mg tablet 60 mg PO DAILY Qty: 12 RF: 0 Referrals: Physician,Unknown J [Primary Care Provider] - 10 days (as needed)
[2021-03-24 00:25] VITALS: BP 155/76; PULSE 91; RESP 18; O2SAT 98
== END 2021-03-24 00:36 | disposition home or self-care (01) ==
PROVIDERS: Emergency Provider Emergency Medicine
DX: U07.1 COVID-19 (principal); I10 Essential (primary) hypertension; J45.909 Unspecified asthma, uncomplicated
CPT/HCPCS: 36415; 87635; 99283

== ENCOUNTER 2021-05-15 19:14 | Emergency (ER) | payer MEDICAID, SELFPAY ==
[2021-05-15 19:31] VITALS: BP 165/97; PULSE 82; RESP 16; TEMP 35.7; O2SAT 97; BMI 43.2
[2021-05-15 21:17] LABS: Strep A Nucleic Acid Negative (Negative)
[2021-05-15 21:22] LABS: COVID-19 Test Negative (Negative); IDNOW Serial# 9DD0AD1C
--- NOTE | 2021-05-15 21:42 | ED_ITS ---
HPI - URI/Sore Throat General Chief Complaint: Upper Respiratory Symptoms Stated Complaint: flu like symptoms Time Seen by Provider: 05/15/21 21:42 Source: patient and family Mode of arrival: ambulatory Limitations: no limitations History of Present Illness HPI Narrative: 41 years old female came in for evaluation of upper respiratory symptoms. Patient been having sore throat, feeling congestion, mild headache, generalized body ache. Patient was exposed to her who was positive for COVID. Related Data Home Medications Medication Instructions Recorded Confirmed albuterol sulfate 90 mcg/actuation 2 puff PO QID PRN 12/28/20 12/28/20 aerosol inhaler (ProAir HFA) cyclobenzaprine 10 mg tablet 1 tab PO TID PRN 12/28/20 12/28/20 labetalol 200 mg tablet 2 tab PO BID 12/28/20 12/28/20 methadone 10 mg/mL oral 55 mg PO DAILY 12/28/20 12/28/20 concentrate (Methadone Intensol) Previous Rx's Medication Instructions Recorded prednisone 20 mg tablet 40 mg PO DAILY #10 tab 12/31/20 prednisone 20 mg tablet 60 mg PO DAILY #12 tab 02/11/21 Allergies Allergy/AdvReac Type Severity Reaction Status Date / Time morphine [MORPHINE] Allergy Unknown SHORTNESS Verified 03/23/21 21:27 OF BREATH Penicillins [PENICILLINS] Allergy Unknown RASH Verified 03/23/21 21:27 Review of Systems Review of Systems: All other systems are reviewed and are negative Constitutional: Reports as per HPI and Reports no additional constitutional complaints Eyes: Reports as per HPI and Reports no additional eye complaints Reports system reviewed and no additional complaints, except as documented Cardiovascular: Reports as per HPI and Reports no additional cardiovascular complaints Respiratory: Reports as per HPI and Reports no additional respiratory complaints Gastrointestinal: Reports as per HPI and Reports no additional gastrointestinal complaints Genitourinary: Reports no additional female genitourinary complaints Musculoskeletal: Reports no additional musculoskeletal complaints Skin/Breast: Reports system reviewed and no additional complaints, except as docu Psychiatric: Reports no additional psychiatric complaints Endocrine: Reports no additional endocrine complaints Hematologic/Lymphatic: Reports no additional hematologic/lymphatic complaints Allergic/Immunologic: Reports no additional allergic/immunologic complaints Reports system reviewed and no additional complaints, except as documented and Reports Abnormal speech present [facility] Past Medical History Medical History Asthma History of ovarian cyst Hypertension Opioid dependence Surgical History No significant past surgical history Social History Social History Household Members: Children Housing: Other Do you presently have visiting nurse or other home services: No Alcohol intake: never Patient Tobacco Use Status: Current everyday Tobacco user Tobacco use type: Cigarette Cigarette Packs Per Day: 0.5 Cigarettes Per Day: 10.0 Advance Directives: Yes Advance Directives on File: Yes Advance Directives Date on File: 12/28/20 service: No Current occupational status: unemployed Physical Exam Vital Signs: Vital Signs: Last Vital Signs Temp 96.2 F L 05/15/21 19:31 Pulse 82 05/15/21 19:31 Resp 16 05/15/21 19:31 BP 165/97 H 05/15/21 19:31 Pulse Ox 97 05/15/21 19:31 BMI result Body Mass Index 43.2 Vital signs have been reviewed as appeared to be correct. Blood pressure elevated. Heart rate normal. Respiration rate normal. Temperature low. Oxygen saturation normal. Appearance: Alert. Oriented X3. No acute distress. Head: Normal external exam. Normocephalic. Atraumatic. No Cunha signs noted. No raccoon eyes noted Eyes: PERRLA. EOMI. Conjunctiva and sclera normal. Eyelids normal. ENT: TM's Normal. Pharynx normal. Uvula midline. Moist mucous membranes. No trismus noted. No drooling noted. No muffled voice noted. Neck: Normal inspection. Neck supple. FROM. No adenopathy. Thyroid Normal. No meningeal signs. No neck mass noted. CVS: Normal heart rate and rhythm. Heart sound normal. No murmurs noted. Pulses normal throughout. Respiratory: No respiratory distress. Painless inspiration. Breath sounds normal. No wheezes/rales/rhonchi noted. Chest nontender. No accessory muscle usage noted or decreased air movement noted. Abdomen: Soft and nontender. Bowel sounds normal in all 4 quadrants. No di stention noted. No organomegaly noted. No visible injury noted. Back: No CVA tenderness. Full range of motion noted. Skin: Skin warm and dry. Normal skin color. Normal skin turgor. No rashes/le sions/lacerations noted. Extremities: No lower extremity edema. Extremities exhibit normal range of motion. Extremities nontender. Neuro: Oriented X 3. Cranial nerve exam: II-XII are grossly intact No motor deficit. No sensory deficit. Reflexes normal. MDM - URI/Sore Throat Lab Data Attestation: I reviewed the patient's lab results. Labs: Lab Results 05/15/21 05/15/21 Range/Units 21:00 21:00 COVID-19 (PACO) Negative (Negative) COVID-19 Clin Com See Note S. pyogenes GrpA YVETTE Negative (Negative) Discharge Plan Discharge Clinical Impression: Viral infection Patient Disposition: Home, Self-Care Instructions: Viral Syndrome (ED) Prescriptions: No Action labetalol 200 mg tablet 2 tab PO BID 0RF methadone [Methadone Intensol] 10 mg/mL Concentrate 55 mg PO DAILY 0RF cyclobenzaprine 10 mg tablet 1 tab PO TID PRN (Reason: Muscle Spasm) 0RF albuterol sulfate [ProAir HFA] 90 mcg/actuation HFA aerosol inhaler 2 puff PO QID PRN (Reason: Shortness Of Breath) 0RF prednisone 20 mg tablet 40 mg PO DAILY Qty: 10 0RF prednisone 20 mg tablet 60 mg PO DAILY Qty: 12 0RF Rx Instructions: start prednisone tomorrow Referrals: Physician,Unknown J [Primary Care Provider] - 2 days
== END 2021-05-15 22:33 | disposition home or self-care (01) ==
PROVIDERS: Emergency Provider Emergency Medicine
DX: B34.9 Viral infection, unspecified (principal); Z20.822 Contact with and (suspected) exposure to COVID-19; J02.9 Acute pharyngitis, unspecified; M79.10 Myalgia, unspecified site; I10 Essential (primary) hypertension; J45.909 Unspecified asthma, uncomplicated; Z79.899 Other long term (current) drug therapy; F11.20 Opioid dependence, uncomplicated
CPT/HCPCS: 36415; 87635; 87651; 99283

== ENCOUNTER 2021-06-29 16:43 | Emergency (ER) | payer MEDICAID, SELFPAY ==
[2021-06-29 17:20] VITALS: BP 178/98; PULSE 75; RESP 20; TEMP 37.1; O2SAT 98; BMI 41.5
[2021-06-29 17:32] LABS: MANUAL DIFF FLAG NO
--- NOTE | 2021-06-29 17:32 | ED_ITS ---
HPI - General Adult General Chief complaint: Vaginal Bleeding Stated complaint: vaginal bleeding Time Seen by Provider: 06/29/21 17:21 Related Data Home Medications Medication Instructions Recorded Confirmed albuterol sulfate 90 mcg/actuation 2 puff PO QID PRN 12/28/20 12/28/20 aerosol inhaler (ProAir HFA) cyclobenzaprine 10 mg tablet 1 tab PO TID PRN 12/28/20 12/28/20 labetalol 200 mg tablet 2 tab PO BID 12/28/20 12/28/20 methadone 10 mg/mL oral 55 mg PO DAILY 12/28/20 12/28/20 concentrate (Methadone Intensol) Previous Rx's Medication Instructions Recorded prednisone 20 mg tablet 40 mg PO DAILY #10 tab 12/31/20 prednisone 20 mg tablet 60 mg PO DAILY #12 tab 02/11/21 cyclobenzaprine 10 mg tablet 10 mg PO TID PRN #14 tab 06/29/21 ferrous sulfate 325 mg (65 mg 325 mg PO DAILY #14 tab 06/29/21 iron) tablet medroxyprogesterone 10 mg tablet 10 mg PO DAILY #30 tab 06/29/21 (Provera) polyethylene glycol 3350 17 17 g PO DAILY PRN #119 g 06/29/21 gram/dose oral powder (Miralax) Allergies Allergy/AdvReac Type Severity Reaction Status Date / Time morphine [MORPHINE] Allergy Unknown SHORTNESS Verified 03/23/21 21:27 OF BREATH Penicillins [PENICILLINS] Allergy Unknown RASH Verified 03/23/21 21:27 PMFSH Past Medical History Medical History Asthma History of ovarian cyst Hypertension Opioid dependence Surgical History No significant past surgical history Social History Social History Household Members: Children Housing: Other Do you presently have visiting nurse or other home services: No Alcohol intake: never Patient Tobacco Use Status: Current everyday Tobacco user Tobacco use type: Cigarette Cigarette Packs Per Day: 0.5 Cigarettes Per Day: 10.0 Advance Directives: Yes Advance Directives on File: Yes Advance Directives Date on File: 12/28/20 Patient : No service: No Current occupational status: unemployed Physical Exam ED Vital Signs: Vital Signs - 24 hr 06/29/21 17:20 Temperature 98.8 F Pulse Rate 75 Respiratory Rate 20 Blood Pressure 178/98 H Pulse Oximetry 98 BMI result Body Mass Index 41.5 Course Course Course Narrative: rapid meddical Screening. Vaginal bleeding for one month. patient uses 36 pads every two days. patient has depo shot and does not believe she is . Labs ordered and UA ordered. Patient well apeearing Medical Decision Making Lab Data Result diagrams: 06/29/21 17:27 06/29/21 17:28 Labs: Lab Results 06/29/21 06/29/21 06/29/21 Range/Units 17:27 17:28 17:28 WBC 8.6 (4.8-10.8) X10*3/uL RBC 3.60 L (4.20-5.50) X10*6/uL Hgb 11.0 L (12.0-16.0) g/dl Hct 33.4 L (37.0-47.0) % MCV 92.8 (80.0-98.0) fL MCH 30.6 (27.0-33.0) pg MCHC 32.9 (31.0-35.0) g/dl RDW 12.7 (11.0-16.0) % Plt Count 256 (160-400) X10*3/uL MPV 11.0 (9.4-12.3) fL Immature Gran % (Auto) 0.1 (0.0-0.4) % Neut % (Auto) 40.0 L (45-73) % Lymph % (Auto) 44.4 H (20-40) % [place] % (Auto) 8.6 (2-11) % Eos % (Auto) 6.3 H (0-4) % Baso % (Auto) 0.6 (0-2) % Lymph # (Auto) 3.8 (1.2-4.9) X10*3/uL [place] # (Auto) 0.7 (0.1-1.2) X10*3/uL Eos # (Auto) 0.5 H (0.0-0.4) X10*3/uL Baso # (Auto) 0.1 (0.0-0.2) X10*3/uL Abs Immat Gran (auto) 0.01 (0.00-0.03) X10*3/uL Absolute Neuts (auto) 3.4 (2.0-8.3) x10*3/uL Absolute Nucleated RBC 0.000 (0.0-0.012) X10*3/uL Nucleated RBC % (auto) 0.0 (0.0-0.2) /100WBC PT 11.9 (9.9-13.0) SEC INR 1.0 (0.9-1.1) APTT 31.7 (24.1-38.0) SEC Sodium 140 (135-145) mmol/L Potassium 4.1 (3.3-5.1) mmol/L Chloride 107 (96-108) mmol/L Carbon Dioxide 27 (22-29) mmol/L Anion Gap 10 L (12-20) BUN 11 (9-16) mg/dL Creatinine 0.71 (0.5-1.4) mg/dL Estim Creat Clear Calc 142.8 Estimated GFR > 60 Random Glucose 101 (60-115) mg/dL Calcium 9.3 (8.4-10.2) mg/dL Total Bilirubin 0.2 (0.0-1.0) mg/dL AST 21 (5-31) U/L ALT 36 H (0-31) U/L Alkaline Phosphatase 41 D (39-117) U/L Total Protein 7.1 (6.5-8.0) g/dL Albumin 4.0 (3.5-5.0) g/dL Beta HCG, Quant mIU/mL 06/29/21 Range/Units 17:28 WBC (4.8-10.8) X10*3/uL RBC (4.20-5.50) X10*6/uL Hgb (12.0-16.0) g/dl Hct (37.0-47.0) % MCV (80.0-98.0) fL MCH (27.0-33.0) pg MCHC (31.0-35.0) g/dl RDW (11.0-16.0) % Plt Count (160-400) X10*3/uL MPV (9.4-12.3) fL Immature Gran % (Auto) (0.0-0.4) % Neut % (Auto) (45-73) % Lymph % (Auto) (20-40) % [place] % (Auto) (2-11) % Eos % (Auto) (0-4) % Baso % (Auto) (0-2) % Lymph # (Auto) (1.2-4.9) X10*3/uL [place] # (Auto) (0.1-1.2) X10*3/uL Eos # (Auto) (0.0-0.4) X10*3/uL Baso # (Auto) (0.0-0.2) X10*3/uL Abs Immat Gran (auto) (0.00-0.03) X10*3/uL Absolute Neuts (auto) (2.0-8.3) x10*3/uL Absolute Nucleated RBC (0.0-0.012) X10*3/uL Nucleated RBC % (auto) (0.0-0.2) /100WBC PT (9.9-13.0) SEC INR (0.9-1.1) APTT (24.1-38.0) SEC Sodium (135-145) mmol/L Potassium (3.3-5.1) mmol/L Chloride (96-108) mmol/L Carbon Dioxide (22-29) mmol/L Anion Gap (12-20) BUN (9-16) mg/dL Creatinine (0.5-1.4) mg/dL Estim Creat Clear Calc Estimated GFR Random Glucose (60-115) mg/dL Calcium (8.4-10.2) mg/dL Total Bilirubin (0.0-1.0) mg/dL AST (5-31) U/L ALT (0-31) U/L Alkaline Phosphatase (39-117) U/L Total Protein (6.5-8.0) g/dL Albumin (3.5-5.0) g/dL Beta HCG, Quant < 2 mIU/mL Discharge Plan Discharge Clinical Impression: Menorrhagia, Back pain Patient Disposition: Home, Self-Care Instructions: Dysfunctional Uterine Bleeding (ED) Additional Instructions: Please follow-up with your primary care physician tomorrow. If you have any worsening or new symptoms, please return to the emergency room or call 911 Prescriptions: New medroxyprogesterone [Provera] 10 mg tablet 10 mg PO DAILY Qty: 30 0RF cyclobenzaprine 10 mg tablet 10 mg PO TID PRN (Reason: muscle spasm) Qty: 14 0RF ferrous sulfate 325 mg (65 mg iron) tablet 325 mg PO DAILY Qty: 14 0RF polyethylene glycol 3350 [Miralax] 17 gram/dose powder 17 g PO DAILY PRN (Reason: constipation) Qty: 119 0RF No Action labetalol 200 mg tablet 2 tab PO BID 0RF methadone [Methadone Intensol] 10 mg/mL Concentrate 55 mg PO DAILY 0RF cyclobenzaprine 10 mg tablet 1 tab PO TID PRN (Reason: Muscle Spasm) 0RF albuterol sulfate [ProAir HFA] 90 mcg/actuation HFA aerosol inhaler 2 puff PO QID PRN (Reason: Shortness Of Breath) 0RF prednisone 20 mg tablet 40 mg PO DAILY Qty: 10 0RF prednisone 20 mg tablet 60 mg PO DAILY Qty: 12 0RF Rx Instructions: start prednisone tomorrow Interventions: ED Discharge Assessment Last Done: 06/29/21 20:57 Discharge Date/Time: 06/29/21 20:58
[2021-06-29 17:39] LABS: Basophils Absolute Auto 0.1 X10*3/uL (0.0-0.2); Basophils Percent Auto 0.6 % (0-2); Eosinophils Absolute Auto 0.5 X10*3/uL (0.0-0.4); Eosinophils Percent Auto 6.3 % (0-4); Hematocrit 33.4 % (37.0-47.0); Imm Gran Abs Auto 0.01 X10*3/uL (0.00-0.03); Imm Gran Pct Auto 0.1 % (0.0-0.4); Lymphocytes Absolute Auto 3.8 X10*3/uL (1.2-4.9); Lymphocytes Percent Auto 44.4 % (20-40); Mean Corpuscular HGB Conc 32.9 g/dl (31.0-35.0); Mean Corpuscular Hemoglobin 30.6 pg (27.0-33.0); Mean Corpuscular Volume 92.8 fL (80.0-98.0); Monocytes Absolute Auto 0.7 X10*3/uL (0.1-1.2); Monocytes Percent Auto 8.6 % (2-11); Neutrophils Absolute Auto 3.4 x10*3/uL (2.0-8.3); Platelet Count 256 X10*3/uL (160-400); Red Cell Distribution Width 12.7 % (11.0-16.0); White Blood Count 8.6 X10*3/uL (4.8-10.8)
[2021-06-29 17:44] LABS: Prothrombin Time 11.9 SEC (9.9-13.0)
[2021-06-29 17:46] LABS: Partial Thromboplastin Time 31.7 SEC (24.1-38.0)
[2021-06-29 17:56] LABS: Alanine Aminotransferase 36 U/L (0-31); Alkaline Phosphatase 41 U/L (39-117); Anion Gap 10 (12-20); Aspartate Amino Transferase 21 U/L (5-31); Bilirubin Total 0.2 mg/dL (0.0-1.0); Blood Urea Nitrogen 11 mg/dL (9-16); Calcium 9.3 mg/dL (8.4-10.2); Carbon Dioxide 27 mmol/L (22-29); Chloride 107 mmol/L (96-108); Creatinine Clr Calc Pharmacy 142.8; Estimated Glomerular Filt Rate > 60; Glucose Random 101 mg/dL (60-115); Potassium 4.1 mmol/L (3.3-5.1); Sodium 140 mmol/L (135-145); Total Protein 7.1 g/dL (6.5-8.0)
[2021-06-29 18:02] LABS: HCG Quantitative < 2 mIU/mL
--- NOTE | 2021-06-29 20:09 | ED_ITS ---
HPI - Female Genitourinary General Chief complaint: Vaginal Bleeding Stated complaint: vaginal bleeding Time Seen by Provider: 06/29/21 17:21 Source: patient Mode of arrival: ambulatory Limitations: no limitations History of Present Illness HPI Narrative: Patient comes to emergency room complaining of 2 weeks of vaginal bleeding. Patient states that in March, patient had Provera IM shot. Patient did not have a menstrual period for 2 months, this month it is very heavy, has been bleeding for 2 weeks. Patient states that she has been feeling more tired than usual. Patient also complaining of lower back pain for several weeks. Patient denies falling, no flank pain, no UTI symptoms Related Data Home Medications Medication Instructions Recorded Confirmed albuterol sulfate 90 mcg/actuation 2 puff PO QID PRN 12/28/20 12/28/20 aerosol inhaler (ProAir HFA) cyclobenzaprine 10 mg tablet 1 tab PO TID PRN 12/28/20 12/28/20 labetalol 200 mg tablet 2 tab PO BID 12/28/20 12/28/20 methadone 10 mg/mL oral 55 mg PO DAILY 12/28/20 12/28/20 concentrate (Methadone Intensol) Previous Rx's Medication Instructions Recorded prednisone 20 mg tablet 40 mg PO DAILY #10 tab 12/31/20 prednisone 20 mg tablet 60 mg PO DAILY #12 tab 02/11/21 cyclobenzaprine 10 mg tablet 10 mg PO TID PRN #14 tab 06/29/21 ferrous sulfate 325 mg (65 mg 325 mg PO DAILY #14 tab 06/29/21 iron) tablet medroxyprogesterone 10 mg tablet 10 mg PO DAILY #30 tab 06/29/21 (Provera) polyethylene glycol 3350 17 17 g PO DAILY PRN #119 g 06/29/21 gram/dose oral powder (Miralax) Allergies Allergy/AdvReac Type Severity Reaction Status Date / Time morphine [MORPHINE] Allergy Unknown SHORTNESS Verified 03/23/21 21:27 OF BREATH Penicillins [PENICILLINS] Allergy Unknown RASH Verified 03/23/21 21:27 Review of Systems Review of Systems: Constitutional : No Weight loss, No Fever, No Chills, No Night Sweats, No Fatigue, No Malaise ENT/Mouth : No Hearing loss, No Ear Pain, No Nasal Congestion, No Sinus Pain, No Hoarseness, No sore throat, No Rhinorrhea, No Swallowing Difficulty Eyes: No Eye Pain, No Swelling, No Redness, No Foreign Body, No Discharge, No Vision Changes Cardiovascular : No Chest Pain, No SOB, No Dyspnea on Exertion, No Orthopnea, No Edema, No Palpitations Respiratory : No Cough, No Sputum, No Wheezing, No Smoke Exposure, No Dyspnea Gastrointestinal : No Nausea, No Vomiting, No Diarrhea, No Constipation, No abdominal Pain, No Hematochezia, No Melena Genitourinary : Complaining of 2 weeks of vaginal bleeding, No Dysuria, No Urinary Frequency, No Hematuria, No Urinary Incontinence, No Urgency, No Flank Pain, No Urinary Flow Changes, No Hesitancy Musculoskeletal : Complaining of chronic lower back pain, nonradiating. No joint pain, No Myalgias, No Joint Swelling Skin : No Skin Lesions, No rash Neuro : No Weakness, No Numbness, No Paresthesias, No Loss of Consciousness, No Dizziness, No Headache Psych : No Anxiety/Panic, No Depression, No SI/HI/AH/VH, No Social Issues, Heme/Lymph: No Bruising, No Bleeding,No Lymphadenopathy Endocrine : No Polyuria, No Polydipsia, No Temperature Intolerance PMFSH Past Medical History Medical History Asthma History of ovarian cyst Hypertension Opioid dependence Surgical History No significant past surgical history Social History Social History Household Members: Children Housing: Other Do you presently have visiting nurse or other home services: No Alcohol intake: never Patient Tobacco Use Status: Current everyday Tobacco user Tobacco use type: Cigarette Cigarette Packs Per Day: 0.5 Cigarettes Per Day: 10.0 Advance Directives: Yes Advance Directives on File: Yes Advance Directives Date on File: 12/28/20 Patient : No service: No Current occupational status: unemployed Physical Exam Vital Signs: Vital Signs: Last Vital Signs Temp 98.8 F 06/29/21 17:20 Pulse 75 06/29/21 17:20 Resp 20 06/29/21 17:20 BP 178/98 H 06/29/21 17:20 Pulse Ox 98 06/29/21 17:20 BMI result Body Mass Index 41.5 Const: Other: Appearance: Alert. Oriented X3. No acute distress. Eyes: Pupils equal, round and reactive to light. ENT: Pharynx normal. Neck: Normal inspection. Neck supple. No lymph nodes noted. No crepitus CVS: Normal heart rate and rhythm. Pulses normal. Normal S1 and S2 Respiratory: No respiratory distress. Breath sounds normal. No Wheezing. No rales Abdomen: Soft and nontender on deep palpation, no suprapubic tenderness, No rigidity. No distention. : Mild to moderate vaginal bleeding, no active cervical bleeding. Skin: Skin warm and dry. Normal skin color. Normal skin turgor. Extremities: No lower extremity edema. No Lacerations. No Rash Neuro: Oriented X 3. No motor deficit. No sensory deficit. Moving all extremities. No slurred speech. CN 2 through 12 grossly intact Psych: calm, cooperative, normal affect Course Course Course Narrative: I discussed the patient with Dr. Payan. Patient will be given p.o. Provera 10mg for 30 days, patient will need close outpatient follow-up, patient will likely need an endometrial biopsy to rule out endometrial pathology. Patient's back pain is likely musculoskeletal. I discussed the above mentioned with the patient, patient will follow up with his primary care physician. Patient does not have an OBGYN, we will provide the patient with Dr. Payan's office phone number MDM - Female Genitourinary Lab Data Result diagrams: 06/29/21 17:27 06/29/21 17:28 Labs: Lab Results 06/29/21 06/29/21 06/29/21 Range/Units 17:27 17:28 17:28 WBC 8.6 (4.8-10.8) X10*3/uL RBC 3.60 L (4.20-5.50) X10*6/uL Hgb 11.0 L (12.0-16.0) g/dl Hct 33.4 L (37.0-47.0) % MCV 92.8 (80.0-98.0) fL MCH 30.6 (27.0-33.0) pg MCHC 32.9 (31.0-35.0) g/dl RDW 12.7 (11.0-16.0) % Plt Count 256 (160-400) X10*3/uL MPV 11.0 (9.4-12.3) fL Immature Gran % (Auto) 0.1 (0.0-0.4) % Neut % (Auto) 40.0 L (45-73) % Lymph % (Auto) 44.4 H (20-40) % [place] % (Auto) 8.6 (2-11) % Eos % (Auto) 6.3 H (0-4) % Baso % (Auto) 0.6 (0-2) % Lymph # (Auto) 3.8 (1.2-4.9) X10*3/uL [place] # (Auto) 0.7 (0.1-1.2) X10*3/uL Eos # (Auto) 0.5 H (0.0-0.4) X10*3/uL Baso # (Auto) 0.1 (0.0-0.2) X10*3/uL Abs Immat Gran (auto) 0.01 (0.00-0.03) X10*3/uL Absolute Neuts (auto) 3.4 (2.0-8.3) x10*3/uL Absolute Nucleated RBC 0.000 (0.0-0.012) X10*3/uL Nucleated RBC % (auto) 0.0 (0.0-0.2) /100WBC PT 11.9 (9.9-13.0) SEC INR 1.0 (0.9-1.1) APTT 31.7 (24.1-38.0) SEC Sodium 140 (135-145) mmol/L Potassium 4.1 (3.3-5.1) mmol/L Chloride 107 (96-108) mmol/L Carbon Dioxide 27 (22-29) mmol/L Anion Gap 10 L (12-20) BUN 11 (9-16) mg/dL Creatinine 0.71 (0.5-1.4) mg/dL Estim Creat Clear Calc 142.8 Estimated GFR > 60 Random Glucose 101 (60-115) mg/dL Calcium 9.3 (8.4-10.2) mg/dL Total Bilirubin 0.2 (0.0-1.0) mg/dL AST 21 (5-31) U/L ALT 36 H (0-31) U/L Alkaline Phosphatase 41 D (39-117) U/L Total Protein 7.1 (6.5-8.0) g/dL Albumin 4.0 (3.5-5.0) g/dL Beta HCG, Quant mIU/mL 06/29/21 Range/Units 17:28 WBC (4.8-10.8) X10*3/uL RBC (4.20-5.50) X10*6/uL Hgb (12.0-16.0) g/dl Hct (37.0-47.0) % MCV (80.0-98.0) fL MCH (27.0-33.0) pg MCHC (31.0-35.0) g/dl RDW (11.0-16.0) % Plt Count (160-400) X10*3/uL MPV (9.4-12.3) fL Immature Gran % (Auto) (0.0-0.4) % Neut % (Auto) (45-73) % Lymph % (Auto) (20-40) % [place] % (Auto) (2-11) % Eos % (Auto) (0-4) % Baso % (Auto) (0-2) % Lymph # (Auto) (1.2-4.9) X10*3/uL [place] # (Auto) (0.1-1.2) X10*3/uL Eos # (Auto) (0.0-0.4) X10*3/uL Baso # (Auto) (0.0-0.2) X10*3/uL Abs Immat Gran (auto) (0.00-0.03) X10*3/uL Absolute Neuts (auto) (2.0-8.3) x10*3/uL Absolute Nucleated RBC (0.0-0.012) X10*3/uL Nucleated RBC % (auto) (0.0-0.2) /100WBC PT (9.9-13.0) SEC INR (0.9-1.1) APTT (24.1-38.0) SEC Sodium (135-145) mmol/L Potassium (3.3-5.1) mmol/L Chloride (96-108) mmol/L Carbon Dioxide (22-29) mmol/L Anion Gap (12-20) BUN (9-16) mg/dL Creatinine (0.5-1.4) mg/dL Estim Creat Clear Calc Estimated GFR Random Glucose (60-115) mg/dL Calcium (8.4-10.2) mg/dL Total Bilirubin (0.0-1.0) mg/dL AST (5-31) U/L ALT (0-31) U/L Alkaline Phosphatase (39-117) U/L Total Protein (6.5-8.0) g/dL Albumin (3.5-5.0) g/dL Beta HCG, Quant < 2 mIU/mL Discharge Plan Discharge Clinical Impression: Menorrhagia, Back pain Patient Disposition: Home, Self-Care Instructions: Dysfunctional Uterine Bleeding (ED) Additional Instructions: Please follow-up with your primary care physician tomorrow. If you have any worsening or new symptoms, please return to the emergency room or call 911 Prescriptions: New medroxyprogesterone [Provera] 10 mg tablet 10 mg PO DAILY Qty: 30 0RF cyclobenzaprine 10 mg tablet 10 mg PO TID PRN (Reason: muscle spasm) Qty: 14 0RF ferrous sulfate 325 mg (65 mg iron) tablet 325 mg PO DAILY Qty: 14 0RF polyethylene glycol 3350 [Miralax] 17 gram/dose powder 17 g PO DAILY PRN (Reason: constipation) Qty: 119 0RF No Action labetalol 200 mg tablet 2 tab PO BID 0RF methadone [Methadone Intensol] 10 mg/mL Concentrate 55 mg PO DAILY 0RF cyclobenzaprine 10 mg tablet 1 tab PO TID PRN (Reason: Muscle Spasm) 0RF albuterol sulfate [ProAir HFA] 90 mcg/actuation HFA aerosol inhaler 2 puff PO QID PRN (Reason: Shortness Of Breath) 0RF prednisone 20 mg tablet 40 mg PO DAILY Qty: 10 0RF prednisone 20 mg tablet 60 mg PO DAILY Qty: 12 0RF Rx Instructions: start prednisone tomorrow
--- NOTE | 2021-06-29 20:11 | PM.GYNCN ---
[employer]WARDER - CN: HPI Data of Consult Consult date: 06/29/21 Primary Care Provider: Carisa Serrano MD Consult Narrative Narrative: I was consulted by phone regarding Shyann Shaffer who is a 41 year old female who presented the emergency room complaining of a 30 day history of vaginal bleeding after 2 months of amenorrhea preceded by Depo-Provera shot in March, more than 90 days ago, the patient has no other associated symptoms. The following workup was done in the emergency room: H&H 11/33.4, chemistry negative, hCG less than 2 cc:: CC: [employer] - Review of Systems Review of Systems ROS Unobtainable: All systems reviewed & are unremarkable except as noted in HPI and below Cardiovascular: Denies Palpatations, Loss of consciousness or Chest pain Respiratory: Denies Cough, Wheezing or Shortness of breath Musculoskeletal: Denies Low back pain Gastrointestinal: Denies Heartburn, Constipation, Diarrhea, Nausea or Vomiting Genitourinary: Denies Pain with urination, Burning with urination or Urinary frequency Neurological: Denies Migranes Psychological: Denies Depression OB PMFSH Past Medical History Medical History Asthma History of ovarian cyst Hypertension Opioid dependence Surgical History Surgical History No significant past surgical history Social History Social History Household Members: Children Housing: Other Do you presently have visiting nurse or other home services: No Alcohol intake: never Patient Tobacco Use Status: Current everyday Tobacco user Tobacco use type: Cigarette Cigarette Packs Per Day: 0.5 Cigarettes Per Day: 10.0 Advance Directives: Yes Advance Directives on File: Yes Advance Directives Date on File: 12/28/20 Patient : No service: No Current occupational status: unemployed Meds Allergies Allergy/AdvReac Type Severity Reaction Status Date / Time morphine [MORPHINE] Allergy Unknown SHORTNESS Verified 03/23/21 21:27 OF BREATH Penicillins [PENICILLINS] Allergy Unknown RASH Verified 03/23/21 21:27 Home Medications Medication Instructions Recorded Confirmed Last Taken Type albuterol sulfate 90 mcg/actuation 2 puff PO QID PRN 12/28/20 12/28/20 Unknown History aerosol inhaler (ProAir HFA) cyclobenzaprine 10 mg tablet 1 tab PO TID PRN 12/28/20 12/28/20 Unknown History labetalol 200 mg tablet 2 tab PO BID 12/28/20 12/28/20 12/27/20 History methadone 10 mg/mL oral 55 mg PO DAILY 12/28/20 12/28/20 Unknown History concentrate (Methadone Intensol) [employer] Physical Exam Vitals Vital signs: Temp Pulse Resp BP Pulse Ox 98.8 F 75 20 178/98 H 98 06/29/21 17:20 06/29/21 17:20 06/29/21 17:20 06/29/21 17:20 06/29/21 17:20 BMI result Body Mass Index 41.5 Constitutional General Appearance: Healthy appearing, Well-nourished and Well-developed Psychiatric Mood and Affect: active and alert, normal mood and normal affect Skin Appearance: No rashes and No lesions Lungs Respiratory Effort: No intercostal retractions Auscultation: Clear to auscultation Cardiovascular Auscultation: RRR Abdomen Auscultation/Inspection/Palpation: Normal bowel sounds, Soft, Non-distended and No tenderness Additional Comments: Dr. Holt report regarding physical /pelvic exam: benign with no significant finding and no active vaginal bleeding [employer] - Results Labs CBC & Chem 7: 06/29/21 17:27 06/29/21 17:28 Labs: Short CBC 06/29/21 Range/Units 17:27 WBC 8.6 (4.8-10.8) X10*3/uL Hgb 11.0 L (12.0-16.0) g/dl Hct 33.4 L (37.0-47.0) % Plt Count 256 (160-400) X10*3/uL BMP 06/29/21 17:28 Sodium 140 Potassium 4.1 Chloride 107 Carbon Dioxide 27 BUN 11 Creatinine 0.71 Calcium 9.3 Liver Function 06/29/21 Range/Units 17:28 Total Bilirubin 0.2 (0.0-1.0) mg/dL AST 21 (5-31) U/L ALT 36 H (0-31) U/L Alkaline Phosphatase 41 D (39-117) U/L Albumin 4.0 (3.5-5.0) g/dL Assessment and Plan (1) Abnormal uterine bleeding: Status: Acute Since H&H is stable, urine test is negative, recommended to Dr. Holt the following management Start Provera 10 mg p.o. q.d., close outpatient follow-up with patient's OBGYN within 1-2 days , the patient needs a workup for abnormal uterine bleeding including but not limited to TSH, pelvic ultrasound, endometrial biopsy to rule out endometrial pathology (endometrial hyperplasia, and/or malignancy). The patient is to be instructed to come back to the emergency room in case of persistence or worsening of her heavy vaginal bleeding. I spent a total of 25 minutes reviewing the chart, communicating to the emergency room provider and documenting in the medical record.
[2021-06-29] MEDS: Cyclobenzaprine HCl 10 MG TABLET PO (20:47)
[2021-06-29] MEDS: oxyCODONE HCl Immed Release 5 MG TABLET PO (20:48)
[2021-06-29] MEDS: medroxyPROGESTERone Acetate 5 MG TABLET 10 MG PO (20:53)
--- NOTE | 2021-06-29 20:58 | PC.NURSE ---
Discharged at this time. The pt verbalized an understanding of all DC orders and she mabulated out of the ED independently and with steady gait. Prior to DC we reviewed proper uses and indications for all prescribed medicines and she vberalized an understANDING.
== END 2021-06-29 20:58 | disposition home or self-care (01) ==
PROVIDERS: Physician Assistant; Emergency Provider Emergency Medicine; PCP Internal Medicine
DX: N93.9 Abnormal uterine and vaginal bleeding, unspecified (principal); N92.0 Excessive and frequent menstruation with regular cycle; M54.50 Low back pain, unspecified; F17.210 Nicotine dependence, cigarettes, uncomplicated; Z79.899 Other long term (current) drug therapy; Z71.6 Tobacco abuse counseling
CPT/HCPCS: 36415; 80053; 84702; 85025; 85610; 85730; 99283

== ENCOUNTER 2022-01-07 13:47 | Emergency (ER) | payer MEDICAID, SELFPAY ==
--- NOTE | ~2022-01-07 | XR_ITS ---
EXAMINATION: XR CHEST CLINICAL INFORMATION: Shortness of breath COMPARISON: 12/28/2020 CT and plain radiographs TECHNIQUE: AP and lateral chest FINDINGS: Chronic low lung volumes. Chronic bronchial wall thickening. Chronic streaky perihilar opacities. Improvement in patchy airspace opacities noted on last years exam. Previous chest CT revealed a population a small peripheral pulmonary nodules, not visualized on plain radiography. If pulmonary symptoms persist recommend repeat chest CT. Stable heart and mediastinum Nonobstructive gas pattern. XR/XR chest 2V IMPRESSION: Chronic airways disease and streaky lung opacities. If symptoms persist recommend chest CT.
[2022-01-07 13:56] VITALS: BP 149/85; RESP 26; TEMP 36.6; O2SAT 90; BMI 46.9
--- NOTE | 2022-01-07 14:11 | PC.NURSE ---
PLACED ON 2LNC WHILE AWAITING BED PLACEMENT
[2022-01-07 14:23] LABS: COVID-19 Test Negative (Negative)
--- NOTE | 2022-01-07 15:26 | ED.SOB ---
HPI - SOB/Dyspnea General Chief Complaint: Dyspnea Stated Complaint: asthma/diff breathing Time Seen by Provider: 01/07/22 15:12 Source: patient Mode of arrival: ambulatory Limitations: no limitations History of Present Illness HPI Narrative: The patient is a 41 year old female with a PMH of HTN, Asthma, Anxiety, opioid dependance, COVID-19, AUB, Rhinovirus, hx of acute respiratory failure with hypoxia presenting with an acute asthma exacerbation secondary to a respiratory infection. The patient reports shortness of breath and asthma exacerbation since yesterday. She reports 4 out of her 7 children have a URI. She endorses, stuffy nose, sinus pressure, cough with green sputum, and shortness of breath. The patient reports she used her ProAir inhaler for the past two days with limited impact of her symptoms. She denies fever, chills, and chest pain. Patient also endorses back pain, pain with urination and abdominal pain for which she saw her OBGYN and has an ultrasound scheduled, she was unclear on the etiology. Patient reports she took an at home urinary infection test and it was positive. Patient also reports one episode of white discharge while urinating. Of note patient was hopitilized for acute respiratory failure with hypoxia secondary to rhinovirus in 12/2020 MD elicited complaint: shortness of breath, cough and asthma attack Pertinent past history: asthma Onset (ago): day(s) (1) Context: recent illness and anxiety Timing: intermittent and progressively worsening Severity: moderate Exacerbating factors: lying flat, exertion, movement, coughing and talking Relieving factors: oxygen, rest and bronchodilators Known history of: asthma Associated symptoms: cough, wheezing, sputum production and abdominal pain Treatment prior to arrival: other (ProAir) Related Data Home Medications Medication Instructions Recorded Confirmed albuterol sulfate 90 mcg/actuation 2 puff PO QID PRN Shortness Of 12/28/20 12/28/20 aerosol inhaler (ProAir HFA) Breath cyclobenzaprine 10 mg tablet 1 tab PO TID PRN Muscle Spasm 12/28/20 12/28/20 labetalol 200 mg tablet 2 tab PO BID 12/28/20 12/28/20 methadone 10 mg/mL oral 55 mg PO DAILY 12/28/20 12/28/20 concentrate (Methadone Intensol) Previous Rx's Medication Instructions Recorded prednisone 20 mg tablet 40 mg PO DAILY #10 tabs 12/31/20 prednisone 20 mg tablet 60 mg PO DAILY #12 tabs 02/11/21 cyclobenzaprine 10 mg tablet 10 mg PO TID PRN muscle spasm #14 06/29/21 tabs ferrous sulfate 325 mg (65 mg 325 mg PO DAILY #14 tabs 06/29/21 iron) tablet medroxyprogesterone 10 mg tablet 10 mg PO DAILY #30 tabs 06/29/21 (Provera) polyethylene glycol 3350 17 17 g PO DAILY PRN constipation 06/29/21 gram/dose oral powder (Miralax) #119 grams albuterol sulfate 1.25 mg/3 mL 1.25 mg (3 mL) inhalation QID PRN 01/07/22 solution for nebulization shortness of breath or wheezing #75 mL albuterol sulfate 90 mcg/actuation 1 inh inhalation QID PRN shortness 01/07/22 aerosol inhaler of breath or wheezing #6.7 grams azithromycin 250 mg tablet See Rx Instructions PO .COMPLEX #6 01/07/22 (Zithromax Z-Stanley) tabs nebulizer accessories #1 ea 01/07/22 nebulizers (AeroEclipse II #1 ea 01/07/22 Nebulizer) prednisone 20 mg tablet 40 mg PO DAILY #10 tabs 01/07/22 Allergies Allergy/AdvReac Type Severity Reaction Status Date / Time morphine [MORPHINE] Allergy Unknown SHORTNESS Verified 03/23/21 21:27 OF BREATH Penicillins [PENICILLINS] Allergy Unknown RASH Verified 03/23/21 21:27 Review of Systems Review of Systems: Constitutional: No Fever, No Chills ENT/Mouth: No sore throat, + Rhinorrhea, No Swallowing Difficulty Cardiovascular: No Chest Pain, + SOB, No Orthopnea, No Edema Respiratory: + Cough, + Sputum, + Wheezing, + dyspnea Gastrointestinal: No Nausea, No Vomiting, No Diarrhea, + abdominal Pain, No Hematochezia, No Melena Genitourinary: + Dysuria, No Urinary Frequency, No Hematuria Musculoskeletal: No joint pain, No Myalgias, + Low back pain Skin: No Skin Lesions, No rash Neuro: No Weakness, No Numbness, No Dizziness, No Headache Psych: + Anxiety Heme/Lymph: No Bruising, No Lymphadenopathy PMFSH Past Medical History Medical History Asthma History of ovarian cyst Hypertension Opioid dependence Surgical History No significant past surgical history Social History Social History Household Members: Children Housing: Other Do you presently have visiting nurse or other home services: No Alcohol intake: never Patient Tobacco Use Status: Current everyday Tobacco user Tobacco use type: Cigarette Cigarette Packs Per Day: 0.5 Cigarettes Per Day: 10.0 Use of substances other than those prescribed or required for medical reasons: No Advance Directives: Yes Advance Directives on File: Yes Advance Directives Date on File: 12/28/20 service: No Current occupational status: unemployed Physical Exam Vital Signs: Vital Signs: Last Vital Signs Temp 98.2 F 01/07/22 18:32 Pulse 84 01/07/22 18:32 Resp 20 01/07/22 18:32 BP 166/94 H 01/07/22 18:32 Pulse Ox 94 01/07/22 18:32 O2 Del Method 01/07/22 18:32 O2 Flow Rate 2 01/07/22 16:02 BMI result Body Mass Index 46.9 Appearance: Alert. Oriented X3. No acute distress. Eyes: Pupils equal, round and reactive to light. ENT: Pharynx normal. Neck: Normal inspection. Neck supple. CVS: Normal heart rate and rhythm. Pulses normal. Respiratory: Initial evaluation patient was tachypnic and in mild respiratory distress; though throughout the exam patients respirations decreased and no longer had increased work of breathing once oxygen was placed. +audible wheezing, bilateral diffuse low pitch wheezing and course throughout. Not longer in respiratory distress. Abdomen: Soft and nontender. +BS x4. - CVA tenderness. Skin: Skin warm and dry. Normal skin color. Normal skin turgor. No rashes. Extremities: No lower extremity edema. Neuro: Oriented X 3. No motor deficit. No sensory deficit. Course Course Course Narrative: 3:30 - 41 year old female with a PMH of HTN, Asthma, Anxiety, opioid dependance on Suboxone, COVID-19, AUB, Rhinovirus, hx of acute respiratory failure with hypoxia presenting with an acute asthma exacerbation secondary to a respiratory infection for the past two days. The patient states she is maxed out on her Pro-Air inhaler and does not have a nebulizer at home. The patient reports 4 of her children have similar URI. Patient was hospitalized 12/2020 for acute repository failure due to rhinovirus. DDX: - Asthma exacerbation secondary to URI - Viral panel ordered, medication ordered to help with work of breathing - Pneumonia: CXR ordered to r/u -UTI - UA to rule out UTI Plan: -Viral panel, Labs, UA -Medications: IV methylprednisolone, IV Magnesium Sulfate, Nebulized Albuterol -CXR ordered Reevaluation(s) Reevaluation #1: CXR showing chronic airways disease with chronic streaky lung opacities. No leukocytosis and procalcitonin is low. Doubt acute bacterial pneumonia at this time. Wheezing improved but persists after 10 mg albuterol, will repeat 5 mg neb now and then reassess. anticipate she will require admission Time: 17:11 Reevaluation #2: Present is significantly improved. She is feeling much better. She is off of oxygen saturating 95%. She is up ambulating in the room. She would like to go home. She has 7 children at home and is insisting that she go be with them. She agrees to continue to make efforts to stop smoking. She will go to her pharmacy and pickle pumper prescribed prednisone, as a throw and albuterol inhalers. A nebulizer machine has been sent to [facility] and she will take the bus to [place] tomorrow to try to get it filled. She was given strict return precautions on if her respiratory status were to decline, she should come back to the emergency room right away for further evaluation. Time: 19:40 MDM - SOB/Dyspnea Lab Data Result diagrams: 01/07/22 15:35 01/07/22 15:35 Labs: Lab Results 01/07/22 01/07/22 01/07/22 Range/Units 14:02 15:35 15:35 WBC 10.1 (4.8-10.8) X10*3/uL RBC 3.90 L (4.20-5.50) X10*6/uL Hgb 12.1 (12.0-16.0) g/dl Hct 36.5 L (37.0-47.0) % MCV 93.6 (80.0-98.0) fL MCH 31.0 (27.0-33.0) pg MCHC 33.2 (31.0-35.0) g/dl RDW 13.1 (11.0-16.0) % Plt Count 249 (160-400) X10*3/uL MPV 11.0 (9.4-12.3) fL Immature Gran % (Auto) 0.3 (0.0-0.4) % Neut % (Auto) 63.7 (45-73) % Lymph % (Auto) 21.1 (20-40) % [place] % (Auto) 9.0 (2-11) % Eos % (Auto) 5.3 H (0-4) % Baso % (Auto) 0.6 (0-2) % Lymph # (Auto) 2.1 (1.2-4.9) X10*3/uL [place] # (Auto) 0.9 (0.1-1.2) X10*3/uL Eos # (Auto) 0.5 H (0.0-0.4) X10*3/uL Baso # (Auto) 0.1 (0.0-0.2) X10*3/uL Abs Immat Gran (auto) 0.03 (0.00-0.03) X10*3/uL Absolute Neuts (auto) 6.4 (2.0-8.3) x10*3/uL Absolute Nucleated RBC 0.000 (0.0-0.012) X10*3/uL Nucleated RBC % (auto) 0.0 (0.0-0.2) /100WBC VBG pH (7.32-7.43) VBG pCO2 mmHg VBG pO2 mmHg VBG HCO3 (22-26) mmol/L VBG O2 Saturation % VBG Base Excess mmol/L Sodium 140 (135-145) mmol/L Potassium 4.0 (3.3-5.1) mmol/L Chloride 104 (96-108) mmol/L Carbon Dioxide 25 (22-29) mmol/L Anion Gap 15 (12-20) BUN 13 (9-16) mg/dL Creatinine 0.74 (0.5-1.4) mg/dL Estim Creat Clear Calc 137.5 Estimated GFR > 60 Random Glucose 102 (60-115) mg/dL Calcium 9.2 (8.4-10.2) mg/dL Magnesium 1.8 (1.6-2.6) mg/dL Total Bilirubin 0.2 (0.0-1.0) mg/dL Direct Bilirubin < 0.2 (0.0-0.5) mg/dL AST 22 (5-31) U/L ALT 23 (0-31) U/L Alkaline Phosphatase 51 D (39-117) U/L B-Natriuretic Peptide (<100) pg/mL Total Protein 7.2 (6.5-8.0) g/dL Albumin 4.3 (3.5-5.0) g/dL Procalcitonin ng/mL Urine Color Urine Appearance Urine pH (5.0-9.0) Ur Specific [place] (1.005-1.025) Urine Protein (Neg-Trace) mg/dL Urine Glucose (UA) (Negative) mg/dL Urine Ketones (Negative) mg/dL Urine Blood (Negative) Urine Nitrite (Negative) Ur Leukocyte Esterase (Negative) Urine RBC (0-2) /HPF Urine WBC (0-5) /HPF Ur Squamous Epith Cells (0-2) /HPF Urine Bacteria (None Seen) Hyaline Casts (0-2) /LPF Urine Test (NEGATIVE) Urine Opiates Screen (Not Detect) Urine Fentanyl Screen (Not Detect) Ur Barbiturates Screen (Not Detect) Ur Phencyclidine Scrn (Not Detect) Ur Amphetamines Screen (Not Detect) U Benzodiazepines Scrn (Not Detect) Urine Cocaine Screen (Not Detect) U Marijuana (THC) Screen (Not Detect) COVID-19 (PACO) Negative (Negative) COVID-19 Clin Com See Note 01/07/22 01/07/22 01/07/22 Range/Units 15:35 15:35 15:37 WBC (4.8-10.8) X10*3/uL RBC (4.20-5.50) X10*6/uL Hgb (12.0-16.0) g/dl Hct (37.0-47.0) % MCV (80.0-98.0) fL MCH (27.0-33.0) pg MCHC (31.0-35.0) g/dl RDW (11.0-16.0) % Plt Count (160-400) X10*3/uL MPV (9.4-12.3) fL Immature Gran % (Auto) (0.0-0.4) % Neut % (Auto) (45-73) % Lymph % (Auto) (20-40) % [place] % (Auto) (2-11) % Eos % (Auto) (0-4) % Baso % (Auto) (0-2) % Lymph # (Auto) (1.2-4.9) X10*3/uL [place] # (Auto) (0.1-1.2) X10*3/uL Eos # (Auto) (0.0-0.4) X10*3/uL Baso # (Auto) (0.0-0.2) X10*3/uL Abs Immat Gran (auto) (0.00-0.03) X10*3/uL Absolute Neuts (auto) (2.0-8.3) x10*3/uL Absolute Nucleated RBC (0.0-0.012) X10*3/uL Nucleated RBC % (auto) (0.0-0.2) /100WBC VBG pH 7.39 (7.32-7.43) VBG pCO2 45 mmHg VBG pO2 49 mmHg VBG HCO3 27 H (22-26) mmol/L VBG O2 Saturation 77.0 % VBG Base Excess 2.3 mmol/L Sodium (135-145) mmol/L Potassium (3.3-5.1) mmol/L Chloride (96-108) mmol/L Carbon Dioxide (22-29) mmol/L Anion Gap (12-20) BUN (9-16) mg/dL Creatinine (0.5-1.4) mg/dL Estim Creat Clear Calc Estimated GFR Random Glucose (60-115) mg/dL Calcium (8.4-10.2) mg/dL Magnesium (1.6-2.6) mg/dL Total Bilirubin (0.0-1.0) mg/dL Direct Bilirubin (0.0-0.5) mg/dL AST (5-31) U/L ALT (0-31) U/L Alkaline Phosphatase (39-117) U/L B-Natriuretic Peptide 22 (<100) pg/mL Total Protein (6.5-8.0) g/dL Albumin (3.5-5.0) g/dL Procalcitonin 0.02 ng/mL Urine Color Urine Appearance Urine pH (5.0-9.0) Ur Specific [place] (1.005-1.025) Urine Protein (Neg-Trace) mg/dL Urine Glucose (UA) (Negative) mg/dL Urine Ketones (Negative) mg/dL Urine Blood (Negative) Urine Nitrite (Negative) Ur Leukocyte Esterase (Negative) Urine RBC (0-2) /HPF Urine WBC (0-5) /HPF Ur Squamous Epith Cells (0-2) /HPF Urine Bacteria (None Seen) Hyaline Casts (0-2) /LPF Urine Test (NEGATIVE) Urine Opiates Screen (Not Detect) Urine Fentanyl Screen (Not Detect) Ur Barbiturates Screen (Not Detect) Ur Phencyclidine Scrn (Not Detect) Ur Amphetamines Screen (Not Detect) U Benzodiazepines Scrn (Not Detect) Urine Cocaine Screen (Not Detect) U Marijuana (THC) Screen (Not Detect) COVID-19 (PACO) (Negative) COVID-19 Clin Com 01/07/22 01/07/22 01/07/22 Range/Units 17:15 17:15 17:15 WBC (4.8-10.8) X10*3/uL RBC (4.20-5.50) X10*6/uL Hgb (12.0-16.0) g/dl Hct (37.0-47.0) % MCV (80.0-98.0) fL MCH (27.0-33.0) pg MCHC (31.0-35.0) g/dl RDW (11.0-16.0) % Plt Count (160-400) X10*3/uL MPV (9.4-12.3) fL Immature Gran % (Auto) (0.0-0.4) % Neut % (Auto) (45-73) % Lymph % (Auto) (20-40) % [place] % (Auto) (2-11) % Eos % (Auto) (0-4) % Baso % (Auto) (0-2) % Lymph # (Auto) (1.2-4.9) X10*3/uL [place] # (Auto) (0.1-1.2) X10*3/uL Eos # (Auto) (0.0-0.4) X10*3/uL Baso # (Auto) (0.0-0.2) X10*3/uL Abs Immat Gran (auto) (0.00-0.03) X10*3/uL Absolute Neuts (auto) (2.0-8.3) x10*3/uL Absolute Nucleated RBC (0.0-0.012) X10*3/uL Nucleated RBC % (auto) (0.0-0.2) /100WBC VBG pH (7.32-7.43) VBG pCO2 mmHg VBG pO2 mmHg VBG HCO3 (22-26) mmol/L VBG O2 Saturation % VBG Base Excess mmol/L Sodium (135-145) mmol/L Potassium (3.3-5.1) mmol/L Chloride (96-108) mmol/L Carbon Dioxide (22-29) mmol/L Anion Gap (12-20) BUN (9-16) mg/dL Creatinine (0.5-1.4) mg/dL Estim Creat Clear Calc Estimated GFR Random Glucose (60-115) mg/dL Calcium (8.4-10.2) mg/dL Magnesium (1.6-2.6) mg/dL Total Bilirubin (0.0-1.0) mg/dL Direct Bilirubin (0.0-0.5) mg/dL AST (5-31) U/L ALT (0-31) U/L Alkaline Phosphatase (39-117) U/L B-Natriuretic Peptide (<100) pg/mL Total Protein (6.5-8.0) g/dL Albumin (3.5-5.0) g/dL Procalcitonin ng/mL Urine Color Yellow Urine Appearance Clear Urine pH 5.5 (5.0-9.0) Ur Specific [place] 1.025 (1.005-1.025) Urine Protein Trace (Neg-Trace) mg/dL Urine Glucose (UA) Negative (Negative) mg/dL Urine Ketones Negative (Negative) mg/dL Urine Blood Trace H (Negative) Urine Nitrite Negative (Negative) Ur Leukocyte Esterase Negative (Negative) Urine RBC 3-5 H (0-2) /HPF Urine WBC 0-5 (0-5) /HPF Ur Squamous Epith Cells 0-2 (0-2) /HPF Urine Bacteria None Seen (None Seen) Hyaline Casts 0-2 (0-2) /LPF Urine Test NEGATIVE (NEGATIVE) Urine Opiates Screen Not Detected (Not Detect) Urine Fentanyl Screen POSITIVE H (Not Detect) Ur Barbiturates Screen Not Detected (Not Detect) Ur Phencyclidine Scrn Not Detected (Not Detect) Ur Amphetamines Screen Not Detected (Not Detect) U Benzodiazepines Scrn Not Detected (Not Detect) Urine Cocaine Screen Not Detected (Not Detect) U Marijuana (THC) Screen Not Detected (Not Detect) COVID-19 (PACO) (Negative) COVID-19 Clin Com Critical Care Time Critical Care Time Critical Care Time: Yes Total Critical Care Time: 41 Attestation: I have personally provided critical care time exclusive of time spent on separately billable procedures. Time includes review of lab data, radiology results, frequent bedside reassessments and monitoring for potential decompensation. Intervention performed as documented. Discharge Plan Discharge Clinical Impression: Asthma exacerbation, Hypertension Patient Disposition: Home, Self-Care Instructions: Asthma (ED), Hypertension (ED) Additional Instructions: You tested negative for COVID-19. Your chest x-ray showed chronic airway changes but no pneumonia. Recommend you follow up with Pulmonology for further evaluation and treatment. Take the prescribed steroids & antibiotics for your lungs. Complete the entire course. They were sent to [facility] on [address] Prescription for nebulizer machine was sent to [facility] STOP SMOKING If you develop new or worsening symptoms call 911 or come back to the ER for further evaluation. Prescriptions: New prednisone 20 mg tablet 40 mg PO DAILY Qty: 10 0RF azithromycin [Zithromax Z-Stanley] 250 mg tablet See Rx Instructions .ROUTE .COMPLEX Qty: 6 0RF Rx Instructions: take 500 mg today (day 1), then 250 mg for 4 days (days 2-5) albuterol sulfate 90 mcg/actuation HFA aerosol inhaler 1 inh inhalation QID PRN (Reason: shortness of breath or wheezing) Qty: 6.7 0RF (DME) nebulizer accessories Kit See Rx Instructions .Route Qty: 1 0RF Rx Instructions: As directed (DME) nebulizers [AeroEclipse II Nebulizer] [facility] [place] See Rx Instructions .Route Qty: 1 0RF Rx Instructions: As directed albuterol sulfate 1.25 mg/3 mL solution for nebulization 1.25 mg inhalation QID PRN (Reason: shortness of breath or wheezing) Qty: 75 0RF No Action labetalol 200 mg tablet 2 tab PO BID methadone [Methadone Intensol] 10 mg/mL Concentrate 55 mg PO DAILY cyclobenzaprine 10 mg tablet 1 tab PO TID PRN (Reason: Muscle Spasm) albuterol sulfate [ProAir HFA] 90 mcg/actuation HFA aerosol inhaler 2 puff PO QID PRN (Reason: Shortness Of Breath) prednisone 20 mg tablet 40 mg PO DAILY Qty: 10 0RF prednisone 20 mg tablet 60 mg PO DAILY Qty: 12 0RF Rx Instructions: start prednisone tomorrow medroxyprogesterone [Provera] 10 mg tablet 10 mg PO DAILY Qty: 30 0RF cyclobenzaprine 10 mg tablet 10 mg PO TID PRN (Reason: muscle spasm) Qty: 14 0RF ferrous sulfate 325 mg (65 mg iron) tablet 325 mg PO DAILY Qty: 14 0RF polyethylene glycol 3350 [Miralax] 17 gram/dose powder 17 g PO DAILY PRN (Reason: constipation) Qty: 119 0RF Referrals: [facility] [place] Pulmonology Services [Provider Group] Carisa Serrano MD [Primary Care Provider] -
[2022-01-07 15:30] VITALS: PULSE 76; RESP 20; O2SAT 96
[2022-01-07] MEDS: Albuterol Sulfate 7.5 MG, Albuterol Sulfate (0.083%) 2.5 MG 10 MG INHALE (15:30)
[2022-01-07 15:41] LABS: MANUAL DIFF FLAG NO
[2022-01-07 15:42] LABS: Venous Blood Gas Refer to POC result
[2022-01-07 15:43] LABS: Basophils Absolute Auto 0.1 X10*3/uL (0.0-0.2); Basophils Percent Auto 0.6 % (0-2); Eosinophils Absolute Auto 0.5 X10*3/uL (0.0-0.4); Eosinophils Percent Auto 5.3 % (0-4); Hematocrit 36.5 % (37.0-47.0); Hemoglobin 12.1 g/dl (12.0-16.0); Imm Gran Abs Auto 0.03 X10*3/uL (0.00-0.03); Imm Gran Pct Auto 0.3 % (0.0-0.4); Lymphocytes Absolute Auto 2.1 X10*3/uL (1.2-4.9); Lymphocytes Percent Auto 21.1 % (20-40); Mean Corpuscular HGB Conc 33.2 g/dl (31.0-35.0); Mean Corpuscular Volume 93.6 fL (80.0-98.0); Monocytes Absolute Auto 0.9 X10*3/uL (0.1-1.2); Neutrophils Absolute Auto 6.4 x10*3/uL (2.0-8.3); Neutrophils Percent Auto 63.7 % (45-73); Platelet Count 249 X10*3/uL (160-400); Red Cell Distribution Width 13.1 % (11.0-16.0); White Blood Count 10.1 X10*3/uL (4.8-10.8)
[2022-01-07 15:43] LABS: VBG Base Excess 2.3 mmol/L; VBG HCO3 27 mmol/L (22-26); VBG pCO2 45 mmHg; VBG pH 7.39 (7.32-7.43); VBG pO2 49 mmHg
[2022-01-07] MEDS: Magnesium Sulfate/H2O 2 GM/50 ML PIGGYBACK IV (15:55)
[2022-01-07] MEDS: methylPREDNISolone Sod Succ 125 MG/2 ML VIAL IVPUSH (15:55)
[2022-01-07 16:02] VITALS: BP 152/81; PULSE 76; RESP 15; TEMP 36.6; O2SAT 98
[2022-01-07 16:04] LABS: Alanine Aminotransferase 23 U/L (0-31); Albumin Level 4.3 g/dL (3.5-5.0); Alkaline Phosphatase 51 U/L (39-117); Anion Gap 15 (12-20); Aspartate Amino Transferase 22 U/L (5-31); Blood Urea Nitrogen 13 mg/dL (9-16); Calcium 9.2 mg/dL (8.4-10.2); Carbon Dioxide 25 mmol/L (22-29); Chloride 104 mmol/L (96-108); Creatinine Clr Calc Pharmacy 137.5; Estimated Glomerular Filt Rate > 60; Glucose Random 102 mg/dL (60-115); Magnesium 1.8 mg/dL (1.6-2.6); Sodium 140 mmol/L (135-145); Total Protein 7.2 g/dL (6.5-8.0)
[2022-01-07 16:15] LABS: Bilirubin Direct < 0.2 mg/dL (0.0-0.5); Bilirubin Total 0.2 mg/dL (0.0-1.0)
[2022-01-07 16:20] LABS: Procalcitonin 0.02 ng/mL
[2022-01-07 17:31] LABS: Appearance Urine Clear; Color Urine Yellow; Glucose Urine UA Negative (Negative); Leukocyte Esterase Urine Negative (Negative); Nitrite Urine Negative (Negative); PH 5.5 (5.0-9.0); Specific Gravity - Urine 1.025 (1.005-1.025); UMIC TRIGGER UACC YES; Urine Blood Trace (Negative); Urine Ketones Negative (Negative); Urine Protein Trace mg/dL (Neg-Trace)
[2022-01-07 17:33] LABS: UPreg QC Valid YES; Urine Pregnancy NEGATIVE (NEGATIVE)
[2022-01-07 17:35] LABS: B Type Natriuretic Peptide 22 pg/mL (<100)
[2022-01-07 17:36] LABS: Bacteria Urine None Seen (None Seen); Hyaline Casts Urine 0-2 /LPF (0-2); Squamous Epithelial Cell Urine 0-2 /HPF (0-2); WBC Urine 0-5 /HPF (0-5)
[2022-01-07] MEDS: Albuterol Sulfate 2.5 MG, Albuterol Sulfate (0.083%) 2.5 MG 5 MG INHALE (17:39)
[2022-01-07 17:40] LABS: Amphetamine Screen Urine Not Detected (Not Detect); Barbiturates, Urine Not Detected (Not Detect); Benzodiazepines Screen Urine Not Detected (Not Detect); Cannabinoid Screen Urine Not Detected (Not Detect); Cocaine Screen Urine Not Detected (Not Detect); Fentanyl, urine POSITIVE (Not Detect); Opiate Screen Urine Not Detected (Not Detect); Phencyclidine Screen Urine Not Detected (Not Detect)
[2022-01-07 17:42] VITALS: PULSE 78; RESP 20; O2SAT 94
[2022-01-07 18:32] VITALS: BP 166/94; PULSE 84; RESP 20; TEMP 36.8; O2SAT 94
[2022-01-07] MEDS: Labetalol HCL 200 MG TABLET 400 MG PO (18:51)
--- NOTE | 2022-01-07 20:06 | PC.NURSE ---
Assumed care of pt at 1900. Pt. resting in bed with family at bedside. Pt. denies current breathing issues and states she feels much better. Mag sulfate slow running d/t positional, small IV line. Pt. to be d/c'd home with prescriptions called into pharmacy and a nebulizer for home use.
[2022-01-07 20:35] VITALS: BP 170/95; PULSE 82; RESP 18; TEMP 36.4; O2SAT 92
== END 2022-01-07 21:02 | disposition home or self-care (01) ==
PROVIDERS: Physician Assistant; Emergency Provider Emergency Medicine Emergency Medical Services; PCP Internal Medicine
DX: J45.901 Unspecified asthma with (acute) exacerbation (principal); R06.02 Shortness of breath; R05.9 Cough, unspecified; F17.210 Nicotine dependence, cigarettes, uncomplicated; I10 Essential (primary) hypertension; Z20.822 Contact with and (suspected) exposure to COVID-19; Z71.6 Tobacco abuse counseling; Z79.899 Other long term (current) drug therapy
CPT/HCPCS: 36415; 71046; 80048; 80076; 80307; 81001; 81025; 82803; 83735; 83880; 84145; 85025; 87633; 87635; 94640; 96374; 96375; 99284; 99285; J2930; J3475

== ENCOUNTER 2022-04-10 03:21 | Emergency (ER) | payer MEDICAID, SELFPAY ==
--- NOTE | ~2022-04-10 | XR_ITS ---
EXAMINATION: XR CHEST CLINICAL INFORMATION: Cough COMPARISON: 01/07/2022 TECHNIQUE: Frontal view of the chest was obtained. FINDINGS: Normal symmetric lung volumes. Mild diffuse bronchial thickening. No parenchymal consolidation. No pleural effusion. No pneumothorax. Cardiomediastinal silhouette and pulmonary vascularity are within normal limits. No acute osseous abnormalities. XR/XR chest 1V IMPRESSION: Mild diffuse bronchial wall thickening as can be seen with bronchitis /chronic airways disease.
[2022-04-10 03:29] VITALS: BMI 48.7
--- NOTE | 2022-04-10 03:31 | ECG_ITS ---
Test Reason : CHEST PAIN Blood Pressure : / mmHG Vent. Rate : 079 BPM Atrial Rate : 079 BPM P-R Int : 182 ms QRS Dur : 106 ms QT Int : 398 ms P-R-T Axes : 039 047 051 degrees QTc Int : 456 ms Sinus rhythm with occasional Premature ventricular complexes Otherwise normal ECG When compared with ECG of 05-SEP-2018 04:53, Premature ventricular complexes are now Present Referred By: Generic ED Physician Electronically Signed By:ISABELLE MARK
[2022-04-10 03:32] VITALS: BP 180/80; PULSE 83; RESP 14; TEMP 36.9; O2SAT 94
[2022-04-10 04:11] LABS: Appearance Urine Clear; Color Urine Yellow; Glucose Urine UA Negative (Negative); Leukocyte Esterase Urine Negative (Negative); Nitrite Urine Negative (Negative); Specific Gravity - Urine 1.015 (1.005-1.025); UMIC TRIGGER UACC YES; Urine Blood Trace (Negative); Urine Ketones Negative (Negative); Urine Protein 30 (1+) mg/dL (Neg-Trace)
[2022-04-10 04:13] LABS: Bacteria Urine None Seen (None Seen); Hyaline Casts Urine 0-2 /LPF (0-2); Squamous Epithelial Cell Urine 0-2 /HPF (0-2); WBC Urine 0-5 /HPF (0-5)
[2022-04-10 04:27] LABS: COVID-19 Test Negative (Negative); IDNOW Serial# 16C4AD1C; IDNOW Serial# BCCEAD1C; Influenza A Negative (Negative); Influenza B2 Negative (Negative)
--- NOTE | 2022-04-10 04:28 | PC.NURSE ---
Pt arrives via EMS, aox4, reporting increased BP with headache and chest pressure. Pt reports not taking BP medication, Labetalol, x 1 week due to not having any more refills. Reports painful urination. Able to ambulate to the restroom to provide urine sample. aware.
--- NOTE | 2022-04-10 04:59 | ED_ITS ---
HPI - General Adult General Chief complaint: Headache Stated complaint: feels warm, Tachycardia Time Seen by Provider: 04/10/22 03:56 Source: patient Mode of arrival: ambulatory History of Present Illness HPI narrative: 42-year-old female who states that she has been on labetalol twice a day since the of her child and is currently managed by her primary care provider who she has been unable to contact regarding her blood pressure medication which has ?run out?. Patient states that she then developed headaches and chest discomfort denies any dizziness, shortness of breath. Related Data Home Medications Medication Instructions Recorded Confirmed albuterol sulfate 90 mcg/actuation 2 puff PO QID PRN Shortness Of 12/28/20 12/28/20 aerosol inhaler (ProAir HFA) Breath cyclobenzaprine 10 mg tablet 1 tab PO TID PRN Muscle Spasm 12/28/20 12/28/20 labetalol 200 mg tablet 2 tab PO BID 12/28/20 12/28/20 methadone 10 mg/mL oral 55 mg PO DAILY 12/28/20 12/28/20 concentrate (Methadone Intensol) Previous Rx's Medication Instructions Recorded prednisone 20 mg tablet 40 mg PO DAILY #10 tabs 12/31/20 prednisone 20 mg tablet 60 mg PO DAILY #12 tabs 02/11/21 cyclobenzaprine 10 mg tablet 10 mg PO TID PRN muscle spasm #14 06/29/21 tabs ferrous sulfate 325 mg (65 mg 325 mg PO DAILY #14 tabs 06/29/21 iron) tablet medroxyprogesterone 10 mg tablet 10 mg PO DAILY #30 tabs 06/29/21 (Provera) polyethylene glycol 3350 17 17 g PO DAILY PRN constipation 06/29/21 gram/dose oral powder (Miralax) #119 grams albuterol sulfate 1.25 mg/3 mL 1.25 mg (3 mL) inhalation QID PRN 01/07/22 solution for nebulization shortness of breath or wheezing #75 mL albuterol sulfate 90 mcg/actuation 1 inh inhalation QID PRN shortness 01/07/22 aerosol inhaler of breath or wheezing #6.7 grams azithromycin 250 mg tablet See Rx Instructions PO .COMPLEX #6 01/07/22 (Zithromax Z-Stanley) tabs nebulizer accessories #1 ea 01/07/22 nebulizers (AeroEclipse II #1 ea 01/07/22 Nebulizer) prednisone 20 mg tablet 40 mg PO DAILY #10 tabs 01/07/22 labetalol 200 mg tablet 200 mg PO BID 30 days #60 tabs 04/10/22 prednisone 50 mg tablet 50 mg PO DAILY 4 days #4 tabs 04/10/22 Allergies Allergy/AdvReac Type Severity Reaction Status Date / Time morphine [MORPHINE] Allergy Unknown SHORTNESS Verified 03/23/21 21:27 OF BREATH Penicillins [PENICILLINS] Allergy Unknown RASH Verified 03/23/21 21:27 Review of Systems Review of Systems: Pertinent positives and negatives as stated in [facility] Past Medical History Source: nursing notes reviewed Medical History Asthma History of ovarian cyst Hypertension Opioid dependence Surgical History No significant past surgical history Social History Social History Household Members: Children Housing: Other Do you presently have visiting nurse or other home services: No Alcohol intake: never Patient Tobacco Use Status: Current everyday Tobacco user Tobacco use type: Cigarette Cigarette Packs Per Day: 0.5 Cigarettes Per Day: 10.0 Advance Directives: Yes Advance Directives on File: Yes Advance Directives Date on File: 12/28/20 service: No Current occupational status: unemployed Physical Exam ED Vital Signs: Vital Signs - 24 hr 04/10/22 03:32 04/10/22 05:53 Temperature 98.4 F 97.9 F Pulse Rate 83 76 Respiratory Rate 14 16 Blood Pressure 180/80 H 143/77 H Pulse Oximetry 94 94 Oxygen Delivery Method Room Air Room Air BMI result Body Mass Index 48.7 VITAL SIGNS: Reviewed. GENERAL: Well developed, well nourished, in no acute distress. HEAD: Normocephalic/atraumatic EYES: PERRLA, EOMI EARS: Ext canals without abnormality OROPHARYNX: no oral lesions noted, posterior pharynx clear LUNGS: Normal breath sounds. No adventitious sounds or accessory muscle use. SpO2<94> CARDIOVASCULAR: Regular rate and rhythm without noted murmurs ABDOMEN: Soft, non-tender, non-distended with bowel sounds. MUSCULOSKELETAL: No tenderness, deformities, or effusions noted on gross inspection. EXTREMITIES: No cyanosis, clubbing or edema. SKIN: Inspection of the skin reveals no rashes NEUROLOGIC: Alert and oriented x 4. Strength and sensation to light touch were grossly intact x 4. Medications Administered Discontinued Medications Generic Name Dose Route Start Last Admin Trade Name Aleyda PRN Reason Stop Dose Admin Acetaminophen 975 mg 04/10/22 05:38 04/10/22 05:47 Acetaminophen 325 Mg Tablet PO 04/10/22 05:39 975 mg ONCE ONE Administration Albuterol Sulfate 4 puff 04/10/22 05:41 04/10/22 05:58 Albuterol Sulfate 90 Mcg 8 Gm Inhaler INHALE 04/10/22 05:42 4 puff ONCE ONE Administration Ibuprofen 400 mg 04/10/22 05:38 04/10/22 05:47 Ibuprofen 400 Mg Tablet PO 04/10/22 05:39 400 mg ONCE ONE Administration Labetalol HCl 200 mg 04/10/22 04:55 04/10/22 05:05 Labetalol Hcl 200 Mg Tablet PO 04/10/22 04:56 200 mg ONCE ONE Administration Protocol Prednisone 50 mg 04/10/22 05:41 04/10/22 05:47 Prednisone 10 Mg Tablet PO 04/10/22 05:42 50 mg ONCE ONE Administration Medical Decision Making Medical Decision Making [facility] Narrative: 42-year-old female comes in with hypertension and shortness of breath with history of asthma, on my review of all investigations my interpretation is that patient has hypertension with mild asthma exacerbation no evidence of hypoxia pa tient was treated with Ventolin inhaler, steroids and started on her prior prescription for blood pressure medication. In addition, patient received combination analgesics. 0604: On re-evaluation patient is feeling better and blood pressure has improved. She is discharged home in stable condition. Differential Diagnosis Please see the discussion above Lab Data [facility] Lab Attestation statement: I reviewed the patient's lab results. Please see the discussion above Labs: Lab Results 04/10/22 04/10/22 04/10/22 Range/Units 04:03 04:03 04:03 Urine Color Yellow Urine Appearance Clear Urine pH 7.0 (5.0-9.0) Ur Specific [place] 1.015 (1.005-1.025) Urine Protein 30 (1+) H (Neg-Trace) mg/dL Urine Glucose (UA) Negative (Negative) mg/dL Urine Ketones Negative (Negative) mg/dL Urine Blood Trace H (Negative) Urine Nitrite Negative (Negative) Ur Leukocyte Esterase Negative (Negative) Urine RBC 3-5 H (0-2) /HPF Urine WBC 0-5 (0-5) /HPF Ur Squamous Epith Cells 0-2 (0-2) /HPF Urine Bacteria None Seen (None Seen) Hyaline Casts 0-2 (0-2) /LPF COVID-19 (PACO) Negative (Negative) COVID-19 Clin Com See Note Influenza Type A (YVETTE) Negative (Negative) Influenza Type B (YVETTE) Negative (Negative) Influenza A & B Note See Note Independent Interpretation I performed an independent interpretation of an: EKG Interpretation: Sinus rhythm, HR-79, no STEMI, WI/QTC are within normal limits. Radiology Impression Radiologist Impression: My interpretation is in agreement with radiology's impression of imaging study. External Record Review External record reviewed: Outpatient record and Prior outpatient labs Chronic Conditions Patient?s care impacted by: Hypertension Discharge Plan Discharge Clinical Impression: Hypertension, Mild asthma exacerbation Patient Disposition: Home, Self-Care Instructions: Asthma (ED), DASH Eating Plan (ED), Hypertension (ED) Additional Instructions: 1. Please complete the short course of steroids for your asthma. 2. I have given you a prescription for your blood pressure medication for the next 30 days. It is imperative that you follow-up with your primary care provider by calling the office on Monday. Return to the ER for worsening symptoms. Prescriptions: New prednisone 50 mg tablet 50 mg PO DAILY 4 Days Qty: 4 0RF labetalol 200 mg tablet 200 mg PO BID 30 Days Qty: 60 0RF No Action labetalol 200 mg tablet 2 tab PO BID methadone [Methadone Intensol] 10 mg/mL Concentrate 55 mg PO DAILY cyclobenzaprine 10 mg tablet 1 tab PO TID PRN (Reason: Muscle Spasm) albuterol sulfate [ProAir HFA] 90 mcg/actuation HFA aerosol inhaler 2 puff PO QID PRN (Reason: Shortness Of Breath) prednisone 20 mg tablet 40 mg PO DAILY Qty: 10 0RF prednisone 20 mg tablet 40 mg PO DAILY Qty: 10 0RF azithromycin [Zithromax Z-Stanley] 250 mg tablet See Rx Instructions .ROUTE .COMPLEX Qty: 6 0RF Rx Instructions: take 500 mg today (day 1), then 250 mg for 4 days (days 2-5) albuterol sulfate 90 mcg/actuation HFA aerosol inhaler 1 inh inhalation QID PRN (Reason: shortness of breath or wheezing) Qty: 6.7 0RF (DME) nebulizer accessories Kit See Rx Instructions .Route Qty: 1 0RF Rx Instructions: As directed (DME) nebulizers [AeroEclipse II Nebulizer] Misc See Rx Instructions .Route Qty: 1 0RF Rx Instructions: As directed albuterol sulfate 1.25 mg/3 mL solution for nebulization 1.25 mg inhalation QID PRN (Reason: shortness of breath or wheezing) Qty: 75 0RF prednisone 20 mg tablet 60 mg PO DAILY Qty: 12 0RF Rx Instructions: start prednisone tomorrow medroxyprogesterone [Provera] 10 mg tablet 10 mg PO DAILY Qty: 30 0RF cyclobenzaprine 10 mg tablet 10 mg PO TID PRN (Reason: muscle spasm) Qty: 14 0RF ferrous sulfate 325 mg (65 mg iron) tablet 325 mg PO DAILY Qty: 14 0RF polyethylene glycol 3350 [Miralax] 17 gram/dose powder 17 g PO DAILY PRN (Reason: constipation) Qty: 119 0RF Referrals: Carisa Serrano MD [Primary Care Provider] - (Your patient is out of blood pressure medication, please see her at your earliest convenience.) Print Language: Citizen Of [place]
[2022-04-10] MEDS: Labetalol HCL 200 MG TABLET PO (05:05)
--- NOTE | 2022-04-10 05:08 | PC.NURSE ---
Pt resting at the bedside. No apparent distress. Medicated as ordered. Aware of plan of care.
[2022-04-10] MEDS: predniSONE 10 MG TABLET 50 MG PO (05:47)
[2022-04-10] MEDS: Acetaminophen 325 MG TABLET 975 MG PO (05:47)
[2022-04-10] MEDS: Ibuprofen 400 MG TABLET PO (05:47)
[2022-04-10 05:53] VITALS: BP 143/77; PULSE 76; RESP 16; TEMP 36.6; O2SAT 94
[2022-04-10] MEDS: Albuterol Sulfate 90 MCG 8 GM INHALER 4 PUFF INHALE (05:58)
--- NOTE | 2022-04-10 06:40 | PC.NURSE ---
Discharge intructions reviewed with pt. Pt verbalizes understanding.
== END 2022-04-10 06:41 | disposition home or self-care (01) ==
PROVIDERS: Emergency Provider Student in an Organized Health Care Education/Training Program; PCP Internal Medicine
DX: J45.901 Unspecified asthma with (acute) exacerbation (principal); R00.0 Tachycardia, unspecified; I10 Essential (primary) hypertension; F17.210 Nicotine dependence, cigarettes, uncomplicated; Z71.6 Tobacco abuse counseling; Z20.822 Contact with and (suspected) exposure to COVID-19; Z20.828 Contact with and (suspected) exposure to other viral communicable diseases
CPT/HCPCS: 71045; 81001; 87502; 87635; 93005; 99284

== ENCOUNTER 2022-05-12 23:14 | Emergency (ER) | payer MEDICAID, SELFPAY ==
--- NOTE | ~2022-05-12 | XR_ITS ---
EXAMINATION: XR LUMBOSACRAL SPINE CLINICAL INFORMATION: Pain COMPARISON: None TECHNIQUE: Three views of the lumbosacral spine. FINDINGS: The vertebral bodies and posterior elements are normal. Moderate loss of disc space height at L3-L4. Slight anterolisthesis of L3 over L4 from hypertrophic facet arthropathy, which is present throughout the lumbar spine. The vertebral alignment is normal. The paraspinal soft tissues are normal. XR/XR lumbar spine 2-3V IMPRESSION: * No acute findings. * Moderate loss of disc space height at L3-L4.
[2022-05-12 23:17] VITALS: BP 155/74; PULSE 83; RESP 18; TEMP 36.3; O2SAT 98; BMI 49.2
--- NOTE | 2022-05-13 01:37 | ED.BACK ---
HPI - Back Pain/Injury General Chief Complaint: Back Pain/Injury Stated Complaint: Back pain/No inj Time Seen by Provider: 05/13/22 01:35 Source: patient Mode of arrival: ambulatory Limitations: no limitations History of Present Illness HPI Narrative: Patient been having low back pain for last few months getting worse for last 1 radiating to the right leg no bladder or bowel involvement no abdominal pain no fall or trauma no fever or chills no urinary symptoms Related Data Home Medications Medication Instructions Recorded Confirmed albuterol sulfate 90 mcg/actuation 2 puff PO QID PRN Shortness Of 12/28/20 12/28/20 aerosol inhaler (ProAir HFA) Breath cyclobenzaprine 10 mg tablet 1 tab PO TID PRN Muscle Spasm 12/28/20 12/28/20 labetalol 200 mg tablet 2 tab PO BID 12/28/20 12/28/20 methadone 10 mg/mL oral 55 mg PO DAILY 12/28/20 12/28/20 concentrate (Methadone Intensol) Previous Rx's Medication Instructions Recorded prednisone 20 mg tablet 40 mg PO DAILY #10 tabs 12/31/20 prednisone 20 mg tablet 60 mg PO DAILY #12 tabs 02/11/21 cyclobenzaprine 10 mg tablet 10 mg PO TID PRN muscle spasm #14 06/29/21 tabs ferrous sulfate 325 mg (65 mg 325 mg PO DAILY #14 tabs 06/29/21 iron) tablet medroxyprogesterone 10 mg tablet 10 mg PO DAILY #30 tabs 06/29/21 (Provera) polyethylene glycol 3350 17 17 g PO DAILY PRN constipation 06/29/21 gram/dose oral powder (Miralax) #119 grams albuterol sulfate 1.25 mg/3 mL 1.25 mg (3 mL) inhalation QID PRN 01/07/22 solution for nebulization shortness of breath or wheezing #75 mL albuterol sulfate 90 mcg/actuation 1 inh inhalation QID PRN shortness 01/07/22 aerosol inhaler of breath or wheezing #6.7 grams azithromycin 250 mg tablet See Rx Instructions PO .COMPLEX #6 01/07/22 (Zithromax Z-Stanley) tabs nebulizer accessories #1 ea 01/07/22 nebulizers (AeroEclipse II #1 ea 01/07/22 Nebulizer) prednisone 20 mg tablet 40 mg PO DAILY #10 tabs 01/07/22 labetalol 200 mg tablet 200 mg PO BID 30 days #60 tabs 04/10/22 prednisone 50 mg tablet 50 mg PO DAILY 4 days #4 tabs 04/10/22 cyclobenzaprine 10 mg tablet 10 mg PO Q8H #20 tabs 05/13/22 tramadol 50 mg tablet 50 mg PO Q6H PRN pain #20 tabs 05/13/22 Allergies Allergy/AdvReac Type Severity Reaction Status Date / Time morphine [MORPHINE] Allergy Unknown SHORTNESS Verified 05/12/22 23:20 OF BREATH Penicillins [PENICILLINS] Allergy Unknown RASH Verified 05/12/22 23:20 Review of Systems Review of Systems: Yes all other systems are reviewed and are negative [facility] Past Medical History Medical History Asthma History of ovarian cyst Hypertension Opioid dependence Surgical History No significant past surgical history Social History Social History Household Members: Children Housing: Other Do you presently have visiting nurse or other home services: No Alcohol intake: never Patient Tobacco Use Status: Current everyday Tobacco user Tobacco use type: Cigarette Cigarette Packs Per Day: 0.5 Cigarettes Per Day: 10.0 Advance Directives: Yes Advance Directives on File: Yes Advance Directives Date on File: 12/28/20 service: No Current occupational status: unemployed Physical Exam Vital Signs: Vital Signs: Last Vital Signs Temp 97.8 F 05/13/22 01:48 Pulse 74 05/13/22 01:48 Resp 16 05/13/22 01:48 BP 128/53 L 05/13/22 01:48 Pulse Ox 97 05/13/22 01:48 O2 Del Method 05/13/22 01:48 BMI result Body Mass Index 49.2 Appearance: Alert. Oriented X3. No acute distress. ENT: Pharynx normal. Oral Mucosa moist Neck: Normal inspection. Neck supple. CVS: Normal heart rate and rhythm. Pulses normal. Respiratory: No respiratory distress. Equal air entry bilateral, no wheezing/rales/rhonchi Abdomen: Soft and nontender. Bowel sounds are present, no mass palpable, no CVA tenderness Skin: Skin warm and dry. Normal skin color. Normal skin turgor. Extremities: No lower extremity edema. No calf tenderness Back: Diffuse tenderness in lower lumbar spine area right sciatic notch tenderness SLR positive at 65 degrees sensation intact Neuro: Oriented X 3. No motor deficit. No sensory deficit.No cerebellar signs , cranial nerves II-XII intact Medications Administered Discontinued Medications Generic Name Dose Route Start Last Admin Trade Name Freq PRN Reason Stop Dose Admin Cyclobenzaprine HCl 10 mg 05/13/22 01:36 05/13/22 02:07 Cyclobenzaprine Hcl 10 Mg Tablet PO 05/13/22 01:37 10 mg ONCE ONE Administration Oxycodone HCl 10 mg 05/13/22 01:36 05/13/22 02:06 Oxycodone Hcl Immed Release 5 Mg Tablet PO 05/13/22 01:37 10 mg ONCE ONE Administration Medical Decision Making Medical Decision Making [facility] Narrative: Patient with chronic low back pain with right sciatica lumbar spine x-ray negative discharge patient home on pain medication muscle relaxant Lab Data [facility] Lab Attestation statement: I reviewed the patient's lab results. Discharge Plan Discharge Clinical Impression: Sciatica, Chronic back pain Patient Disposition: Home, Self-Care Instructions: Sciatica (ED), Chronic Back Pain (DC) Additional Instructions: Take pain medication and muscle relaxant as prescribed Follow with PCP if not better Prescriptions: New cyclobenzaprine 10 mg tablet 10 mg PO Q8H Qty: 20 0RF tramadol 50 mg tablet 50 mg PO Q6H PRN (Reason: pain) Qty: 20 0RF No Action labetalol 200 mg tablet 2 tab PO BID methadone [Methadone Intensol] 10 mg/mL Concentrate 55 mg PO DAILY cyclobenzaprine 10 mg tablet 1 tab PO TID PRN (Reason: Muscle Spasm) albuterol sulfate [ProAir HFA] 90 mcg/actuation HFA aerosol inhaler 2 puff PO QID PRN (Reason: Shortness Of Breath) prednisone 20 mg tablet 40 mg PO DAILY Qty: 10 0RF prednisone 20 mg tablet 40 mg PO DAILY Qty: 10 0RF azithromycin [Zithromax Z-Stanley] 250 mg tablet See Rx Instructions .ROUTE .COMPLEX Qty: 6 0RF Rx Instructions: take 500 mg today (day 1), then 250 mg for 4 days (days 2-5) albuterol sulfate 90 mcg/actuation HFA aerosol inhaler 1 inh inhalation QID PRN (Reason: shortness of breath or wheezing) Qty: 6.7 0RF (DME) nebulizer accessories Kit See Rx Instructions .Route Qty: 1 0RF Rx Instructions: As directed (DME) nebulizers [AeroEclipse II Nebulizer] [facility] See Rx Instructions .Route Qty: 1 0RF Rx Instructions: As directed albuterol sulfate 1.25 mg/3 mL solution for nebulization 1.25 mg inhalation QID PRN (Reason: shortness of breath or wheezing) Qty: 75 0RF prednisone 50 mg tablet 50 mg PO DAILY 4 Days Qty: 4 0RF labetalol 200 mg tablet 200 mg PO BID 30 Days Qty: 60 0RF prednisone 20 mg tablet 60 mg PO DAILY Qty: 12 0RF Rx Instructions: start prednisone tomorrow medroxyprogesterone [Provera] 10 mg tablet 10 mg PO DAILY Qty: 30 0RF cyclobenzaprine 10 mg tablet 10 mg PO TID PRN (Reason: muscle spasm) Qty: 14 0RF ferrous sulfate 325 mg (65 mg iron) tablet 325 mg PO DAILY Qty: 14 0RF polyethylene glycol 3350 [Miralax] 17 gram/dose powder 17 g PO DAILY PRN (Reason: constipation) Qty: 119 0RF Interventions: ED Discharge Assessment Last Done: 05/13/22 03:01 Discharge Date/Time: 05/13/22 03:02
[2022-05-13 01:48] VITALS: BP 128/53; PULSE 74; RESP 16; TEMP 36.6; O2SAT 97
[2022-05-13] MEDS: oxyCODONE HCl Immed Release 5 MG TABLET 10 MG PO (02:06)
[2022-05-13] MEDS: Cyclobenzaprine HCl 10 MG TABLET PO (02:07)
== END 2022-05-13 03:02 | disposition home or self-care (01) ==
PROVIDERS: Emergency Provider Internal Medicine
DX: M54.41 Lumbago with sciatica, right side (principal); F17.210 Nicotine dependence, cigarettes, uncomplicated; Z79.899 Other long term (current) drug therapy; Z71.6 Tobacco abuse counseling
CPT/HCPCS: 72100; 99283; 99284

== ENCOUNTER 2022-06-06 20:53 | Emergency (ER) | payer MEDICAID, SELFPAY ==
--- NOTE | ~2022-06-06 | XR_ITS ---
EXAMINATION: XR CHEST CLINICAL INFORMATION: Shortness of breath COMPARISON: 04/08/2022 TECHNIQUE: 2 views of the chest were obtained. FINDINGS: Again seen is some mild peribronchial thickening with hypoinflated lungs. No other significant abnormality is noted involving the heart, lungs, mediastinum, bony thorax or soft tissues. XR/XR chest 2V IMPRESSION: No acute intrathoracic disease.
[2022-06-06 21:18] VITALS: BP 182/86; PULSE 86; RESP 16; TEMP 36.7; O2SAT 98; BMI 43.7
[2022-06-06 22:19] LABS: MANUAL DIFF FLAG NO
[2022-06-06 22:20] LABS: Basophils Absolute Auto 0.1 X10*3/uL (0.0-0.2); Basophils Percent Auto 0.6 % (0-2); Eosinophils Absolute Auto 0.5 X10*3/uL (0.0-0.4); Eosinophils Percent Auto 4.5 % (0-4); Hematocrit 37.1 % (37.0-47.0); Hemoglobin 12.4 g/dl (12.0-16.0); Imm Gran Abs Auto 0.02 X10*3/uL (0.00-0.03); Imm Gran Pct Auto 0.2 % (0.0-0.4); Lymphocytes Absolute Auto 4.2 X10*3/uL (1.2-4.9); Lymphocytes Percent Auto 36.7 % (20-40); Mean Corpuscular HGB Conc 33.4 g/dl (31.0-35.0); Mean Corpuscular Hemoglobin 31.3 pg (27.0-33.0); Mean Corpuscular Volume 93.7 fL (80.0-98.0); Mean Platelet Volume 11.3 fL (9.4-12.3); Monocytes Absolute Auto 0.9 X10*3/uL (0.1-1.2); Monocytes Percent Auto 7.9 % (2-11); Neutrophils Absolute Auto 5.8 x10*3/uL (2.0-8.3); Neutrophils Percent Auto 50.1 % (45-73); Platelet Count 257 X10*3/uL (160-400); Red Blood Count 3.96 X10*6/uL (4.20-5.50); Red Cell Distribution Width 12.5 % (11.0-16.0); White Blood Count 11.5 X10*3/uL (4.8-10.8)
[2022-06-06 22:35] LABS: Alanine Aminotransferase 22 U/L (0-31); Albumin Level 4.3 g/dL (3.5-5.0); Alkaline Phosphatase 39 U/L (39-117); Anion Gap 12 (12-20); Aspartate Amino Transferase 22 U/L (5-31); Bilirubin Total 0.3 mg/dL (0.0-1.0); Blood Urea Nitrogen 18 mg/dL (9-16); Calcium 9.3 mg/dL (8.4-10.2); Carbon Dioxide 27 mmol/L (22-29); Chloride 105 mmol/L (96-108); Creatinine Clr Calc Pharmacy 162.2; Estimated Glomerular Filt Rate > 60; Glucose Random 95 mg/dL (60-115); Potassium 4.3 mmol/L (3.3-5.1); Sodium 140 mmol/L (135-145); Total Protein 7.3 g/dL (6.5-8.0)
[2022-06-07] VITALS: BP 124/58; PULSE 73; RESP 16; TEMP 36.6; O2SAT 98
--- NOTE | 2022-06-07 00:19 | ED.GENADULT ---
HPI - General Adult General Chief complaint: General Medical Stated complaint: feet swelling Time Seen by Provider: 06/06/22 23:40 Source: patient Mode of arrival: ambulatory History of Present Illness HPI narrative: 42-year-old female with high blood pressure presents with increasing bilateral lower extremity edema for over a month and she states that the swelling does go down overnight however not completely and then worsens throughout the day and her lower legs feel very uncomfortable. Patient also describes orthopnea with difficulty in breathing if she lays completely flat. She states that she is taking her medication as prescribed and she has made multiple attempts to reach out to her primary care provider but the line is always busy. Related Data Home Medications Medication Instructions Recorded Confirmed albuterol sulfate 90 mcg/actuation 2 puff PO QID PRN Shortness Of 12/28/20 12/28/20 aerosol inhaler (ProAir HFA) Breath cyclobenzaprine 10 mg tablet 1 tab PO TID PRN Muscle Spasm 12/28/20 12/28/20 labetalol 200 mg tablet 2 tab PO BID 12/28/20 12/28/20 methadone 10 mg/mL oral 55 mg PO DAILY 12/28/20 12/28/20 concentrate (Methadone Intensol) Previous Rx's Medication Instructions Recorded prednisone 20 mg tablet 40 mg PO DAILY #10 tabs 12/31/20 prednisone 20 mg tablet 60 mg PO DAILY #12 tabs 02/11/21 cyclobenzaprine 10 mg tablet 10 mg PO TID PRN muscle spasm #14 06/29/21 tabs ferrous sulfate 325 mg (65 mg 325 mg PO DAILY #14 tabs 06/29/21 iron) tablet medroxyprogesterone 10 mg tablet 10 mg PO DAILY #30 tabs 06/29/21 (Provera) polyethylene glycol 3350 17 17 g PO DAILY PRN constipation 06/29/21 gram/dose oral powder (Miralax) #119 grams albuterol sulfate 1.25 mg/3 mL 1.25 mg (3 mL) inhalation QID PRN 01/07/22 solution for nebulization shortness of breath or wheezing #75 mL albuterol sulfate 90 mcg/actuation 1 inh inhalation QID PRN shortness 01/07/22 aerosol inhaler of breath or wheezing #6.7 grams azithromycin 250 mg tablet See Rx Instructions PO .COMPLEX #6 10/07/22 (Zithromax Z-Stanley) tabs nebulizer accessories #1 ea 01/07/22 nebulizers (AeroEclipse II #1 ea 01/07/22 Nebulizer) prednisone 20 mg tablet 40 mg PO DAILY #10 tabs 01/07/22 labetalol 200 mg tablet 200 mg PO BID 30 days #60 tabs 04/10/22 prednisone 50 mg tablet 50 mg PO DAILY 4 days #4 tabs 04/10/22 cyclobenzaprine 10 mg tablet 10 mg PO Q8H #20 tabs 05/13/22 tramadol 50 mg tablet 50 mg PO Q6H PRN pain #20 tabs 05/13/22 Allergies Allergy/AdvReac Type Severity Reaction Status Date / Time morphine [MORPHINE] Allergy Unknown SHORTNESS Verified 05/12/22 23:20 OF BREATH Penicillins [PENICILLINS] Allergy Unknown RASH Verified 05/12/22 23:20 Review of Systems Review of Systems: Pertinent positives and negatives as stated in [facility] [place] Past Medical History Source: nursing notes reviewed Medical History Asthma History of ovarian cyst Hypertension Opioid dependence Surgical History No significant past surgical history Social History Social History Household Members: Children Housing: Other Do you presently have visiting nurse or other home services: No Alcohol intake: never Patient Tobacco Use Status: Current everyday Tobacco user Tobacco use type: Cigarette Cigarette Packs Per Day: 0.5 Cigarettes Per Day: 10.0 Advance Directives: Yes Advance Directives on File: Yes Advance Directives Date on File: 12/28/20 service: No Current occupational status: unemployed Physical Exam ED Vital Signs: Vital Signs - 24 hr 06/06/22 21:18 06/07/22 00:00 Temperature 98.1 F 97.8 F Pulse Rate 86 73 Respiratory Rate 16 16 Blood Pressure 182/86 H 124/58 L Pulse Oximetry 98 98 Oxygen Delivery Method Room Air BMI result Body Mass Index 43.7 VITAL SIGNS: Reviewed. GENERAL: Elevated BMI, Well developed, well nourished, in no acute distress. HEAD: Normocephalic/atraumatic EYES: PERRLA, EOMI LUNGS: Normal breath sounds. No adventitious sounds or accessory muscle use. SpO2<98> CARDIOVASCULAR: Regular rate and rhythm without noted murmurs, no JVD but bilateral 2+ pitting edema up to the knees ABDOMEN: Soft, non-tender, non-distended with bowel sounds. MUSCULOSKELETAL: No tenderness, deformities, or effusions noted on gross inspection. EXTREMITIES: No cyanosis, clubbing or edema. SKIN: Inspection of the skin reveals no rashes NEUROLOGIC: Alert and oriented x 4. Strength and sensation to light touch were grossly intact x 4. Medical Decision Making Medical Decision Making [facility] Narrative: 42-year-old female who presents with history is symptoms of possible CHF which is not surprising given her longstanding history of high blood pressure. I reviewed all investigations and my interpretation is that patient has pitting edema secondary to venous insufficiency. She was informed of all results and I recommended to her to use compression stockings and follow-up with her primary care provider. The leukocytosis is considered reactive as patient is otherwise afebrile without any findings suggest intra-abdominal, or pneumonia and she denies any urinary symptoms. Differential Diagnosis Please see the discussion above Lab Data Please see the discussion above 06/06/22 22:13 06/06/22 22:13 Labs: Lab Results 06/06/22 06/06/22 06/06/22 Range/Units 22:13 22:13 22:13 WBC 11.5 H (4.8-10.8) X10*3/uL RBC 3.96 L (4.20-5.50) X10*6/uL Hgb 12.4 (12.0-16.0) g/dl Hct 37.1 (37.0-47.0) % MCV 93.7 (80.0-98.0) fL MCH 31.3 (27.0-33.0) pg MCHC 33.4 (31.0-35.0) g/dl RDW 12.5 (11.0-16.0) % Plt Count 257 (160-400) X10*3/uL MPV 11.3 (9.4-12.3) fL Immature Gran % (Auto) 0.2 (0.0-0.4) % Neut % (Auto) 50.1 (45-73) % Lymph % (Auto) 36.7 (20-40) % [place] % (Auto) 7.9 (2-11) % Eos % (Auto) 4.5 H (0-4) % Baso % (Auto) 0.6 (0-2) % Lymph # (Auto) 4.2 (1.2-4.9) X10*3/uL [place] # (Auto) 0.9 (0.1-1.2) X10*3/uL Eos # (Auto) 0.5 H (0.0-0.4) X10*3/uL Baso # (Auto) 0.1 (0.0-0.2) X10*3/uL Abs Immat Gran (auto) 0.02 (0.00-0.03) X10*3/uL Absolute Neuts (auto) 5.8 (2.0-8.3) x10*3/uL Absolute Nucleated RBC 0.000 (0.0-0.012) X10*3/uL Nucleated RBC % (auto) 0.0 (0.0-0.2) /100WBC Sodium 140 (135-145) mmol/L Potassium 4.3 (3.3-5.1) mmol/L Chloride 105 (96-108) mmol/L Carbon Dioxide 27 (22-29) mmol/L Anion Gap 12 (12-20) BUN 18 H (9-16) mg/dL Creatinine 0.68 (0.5-1.4) mg/dL Estim Creat Clear Calc 162.2 Estimated GFR > 60 Random Glucose 95 (60-115) mg/dL Calcium 9.3 (8.4-10.2) mg/dL Total Bilirubin 0.3 (0.0-1.0) mg/dL AST 22 (5-31) U/L ALT 22 (0-31) U/L Alkaline Phosphatase 39 (39-117) U/L B-Natriuretic Peptide < 10 (<100) pg/mL Total Protein 7.3 (6.5-8.0) g/dL Albumin 4.3 (3.5-5.0) g/dL Radiology Impression Radiologist Impression: My interpretation is in agreement with radiology's impression of the imaging studies. External Record Review External record reviewed: Outpatient record and Prior outpatient labs Chronic Conditions Patient?s care impacted by: Hypertension Discharge Plan Discharge Clinical Impression: Localized swelling of both lower legs Patient Disposition: Home, Self-Care Instructions: Leg Edema (ED) Additional Instructions: 1. Reanudar todos los medicamentos caseros seg?n lo prescrito. 2. Le recomiendo que comience a usar medias de compresi?n, puede comprarlas sin receta, gab necesitar? medir ashwin bobbi?o de pantorrillas. 3. Barry un seguimiento con us proveedor de atenci?n primaria en los pr?ximos 1 o 2 d?as. Regrese a la nhan de emergencias si los s?ntomas empeoran. 1. Resume all home medications as prescribed. 2. I highly recommend that you start using compression stockings, you can purchase these [id number] but you will need to measure this size of your calfs. 3. Please follow-up with your primary care provider in the next 1-2 days. Return to the ER for any worsening symptoms. Prescriptions: No Action labetalol 200 mg tablet 2 tab PO BID methadone [Methadone Intensol] 10 mg/mL Concentrate 55 mg PO DAILY cyclobenzaprine 10 mg tablet 1 tab PO TID PRN (Reason: Muscle Spasm) albuterol sulfate [ProAir HFA] 90 mcg/actuation HFA aerosol inhaler 2 puff PO QID PRN (Reason: Shortness Of Breath) prednisone 20 mg tablet 40 mg PO DAILY Qty: 10 0RF prednisone 20 mg tablet 40 mg PO DAILY Qty: 10 0RF azithromycin [Zithromax Z-Stanley] 250 mg tablet See Rx Instructions .ROUTE .COMPLEX Qty: 6 0RF Rx Instructions: take 500 mg today (day 1), then 250 mg for 4 days (days 2-5) albuterol sulfate 90 mcg/actuation HFA aerosol inhaler 1 inh inhalation QID PRN (Reason: shortness of breath or wheezing) Qty: 6.7 0RF (DME) nebulizer accessories Kit See Rx Instructions .Route Qty: 1 0RF Rx Instructions: As directed (DME) nebulizers [AeroEclipse II Nebulizer] Mis See Rx Instructions .Route Qty: 1 0RF Rx Instructions: As directed albuterol sulfate 1.25 mg/3 mL solution for nebulization 1.25 mg inhalation QID PRN (Reason: shortness of breath or wheezing) Qty: 75 0RF prednisone 50 mg tablet 50 mg PO DAILY 4 Days Qty: 4 0RF labetalol 200 mg tablet 200 mg PO BID 30 Days Qty: 60 0RF cyclobenzaprine 10 mg tablet 10 mg PO Q8H Qty: 20 0RF tramadol 50 mg tablet 50 mg PO Q6H PRN (Reason: pain) Qty: 20 0RF prednisone 20 mg tablet 60 mg PO DAILY Qty: 12 0RF Rx Instructions: start prednisone tomorrow medroxyprogesterone [Provera] 10 mg tablet 10 mg PO DAILY Qty: 30 0RF cyclobenzaprine 10 mg tablet 10 mg PO TID PRN (Reason: muscle spasm) Qty: 14 0RF ferrous sulfate 325 mg (65 mg iron) tablet 325 mg PO DAILY Qty: 14 0RF polyethylene glycol 3350 [Miralax] 17 gram/dose powder 17 g PO DAILY PRN (Reason: constipation) Qty: 119 0RF Print Language: Romansh
[2022-06-07 00:43] LABS: B Type Natriuretic Peptide < 10 pg/mL (<100)
== END 2022-06-07 01:58 | disposition home or self-care (01) ==
PROVIDERS: Internal Medicine; Emergency Provider Student in an Organized Health Care Education/Training Program
DX: R60.0 Localized edema (principal); R06.02 Shortness of breath; F17.210 Nicotine dependence, cigarettes, uncomplicated; Z71.6 Tobacco abuse counseling; Z79.899 Other long term (current) drug therapy
CPT/HCPCS: 36415; 71046; 80053; 83880; 85025; 99283

== ENCOUNTER 2022-09-05 22:52 | Emergency (ER) | payer MEDICAID, SELFPAY ==
--- NOTE | ~2022-09-05 | XR_ITS ---
EXAMINATION: XR SHOULDER, LEFT CLINICAL INFORMATION: Pain COMPARISON: None available. TECHNIQUE: Three views of the left shoulder. FINDINGS: No fracture or dislocation. The glenohumeral joint is well aligned. The acromioclavicular joint is intact. The visualized lung is clear. The visualized ribs are intact. XR/XR shoulder LT min 2V IMPRESSION: Normal left shoulder.
--- NOTE | ~2022-09-05 | XR_ITS ---
EXAMINATION: XR CHEST CLINICAL INFORMATION: Chest pain COMPARISON: 06/07/2022 TECHNIQUE: Frontal view of the chest was obtained. FINDINGS: The lungs are well expanded. There is no focal consolidation, edema, or effusion. No pneumothorax. The cardiomediastinal silhouette is within normal limits. No acute osseous abnormality. XR/XR chest 1V IMPRESSION: Clear lungs.
[2022-09-05 23:15] VITALS: BP 190/108; PULSE 67; RESP 16; TEMP 36.4; O2SAT 96; BMI 48.8
[2022-09-06 00:28] VITALS: BP 165/84; PULSE 60; RESP 16; TEMP 36.1; O2SAT 98
--- NOTE | 2022-09-06 00:36 | ECG_ITS ---
Test Reason : LEFT ARM PAIN Blood Pressure : / mmHG Vent. Rate : 069 BPM Atrial Rate : 069 BPM P-R Int : 192 ms QRS Dur : 102 ms QT Int : 436 ms P-R-T Axes : 047 045 039 degrees QTc Int : 467 ms Normal sinus rhythm Nonspecific T wave abnormality Prolonged QT Abnormal ECG When compared with ECG of 10-APR-2022 03:31, Premature ventricular complexes are no longer Present Nonspecific T wave abnormality now evident in Anterior leads Referred By: Generic ED Physician Electronically Signed By:Jonas Padgett
[2022-09-06 00:40] LABS: Hematocrit 38.1 % (37.0-47.0); Hemoglobin 12.8 g/dl (12.0-16.0); Mean Corpuscular HGB Conc 33.6 g/dl (31.0-35.0); Mean Corpuscular Hemoglobin 31.4 pg (27.0-33.0); Mean Corpuscular Volume 93.6 fL (80.0-98.0); Mean Platelet Volume 10.8 fL (9.4-12.3); Platelet Count 266 X10*3/uL (160-400); Red Blood Count 4.07 X10*6/uL (4.20-5.50); Red Cell Distribution Width 12.6 % (11.0-16.0); White Blood Count 11.6 X10*3/uL (4.8-10.8)
--- NOTE | 2022-09-06 00:44 | MHC.EDTECH ---
PATIENT EKG DONE WAS WAS READ BY PROVIDER ,VITALS SIGN RE CHECK AND BLOOD DRAWN AND SENT TO LAB .
[2022-09-06 01:01] LABS: Alanine Aminotransferase 30 U/L (0-31); Albumin Level 4.3 g/dL (3.5-5.0); Alkaline Phosphatase 48 U/L (39-117); Anion Gap 14 (12-20); Aspartate Amino Transferase 29 U/L (5-31); Bilirubin Total 0.4 mg/dL (0.0-1.0); Blood Urea Nitrogen 14 mg/dL (9-16); Calcium 9.9 mg/dL (8.4-10.2); Carbon Dioxide 27 mmol/L (22-29); Chloride 104 mmol/L (96-108); Creatinine Clr Calc Pharmacy 141.3; Estimated Glomerular Filt Rate > 60; Glucose Random 104 mg/dL (60-115); Potassium 3.9 mmol/L (3.3-5.1); Sodium 141 mmol/L (135-145); Total Protein 7.9 g/dL (6.5-8.0); Troponin-I High Sensitivity < 2.7 ng/L (<3.5-17.0)
--- NOTE | 2022-09-06 03:23 | ED.EXTPRO ---
HPI - Extremity Problem General Chief complaint: Extremity Injury, Upper Stated complaint: left arm pain Time Seen by Provider: 09/06/22 02:21 History of Present Illness HPI Narrative: Patient is a 42-year-old female presented today with having pain to the left shoulder area. The pain is worse with movement of the left shoulder. There is no pain on movement of the right shoulder. Patient denies any history of diabetes. She does have a history of smoking he has history of hypertension. No history of [place]. No shortness of breath. No diaphoresis. Patient from home. No travel history no leg swelling. No history of blood clots in the past. Not on blood thinners. Not on control. Related Data Home Medications Medication Instructions Recorded Confirmed albuterol sulfate 90 mcg/actuation 2 puff PO QID PRN Shortness Of 12/28/20 12/28/20 aerosol inhaler (ProAir HFA) Breath cyclobenzaprine 10 mg tablet 1 tab PO TID PRN Muscle Spasm 12/28/20 12/28/20 labetalol 200 mg tablet 2 tab PO BID 12/28/20 12/28/20 methadone 10 mg/mL oral 55 mg PO DAILY 12/28/20 12/28/20 concentrate (Methadone Intensol) Previous Rx's Medication Instructions Recorded prednisone 20 mg tablet 40 mg PO DAILY #10 tabs 12/31/20 prednisone 20 mg tablet 60 mg PO DAILY #12 tabs 02/11/21 cyclobenzaprine 10 mg tablet 10 mg PO TID PRN muscle spasm #14 06/29/21 tabs ferrous sulfate 325 mg (65 mg 325 mg PO DAILY #14 tabs 06/29/21 iron) tablet medroxyprogesterone 10 mg tablet 10 mg PO DAILY #30 tabs 06/29/21 (Provera) polyethylene glycol 3350 17 17 g PO DAILY PRN constipation 06/29/21 gram/dose oral powder (Miralax) #119 grams albuterol sulfate 1.25 mg/3 mL 1.25 mg (3 mL) inhalation QID PRN 01/07/22 solution for nebulization shortness of breath or wheezing #75 mL albuterol sulfate 90 mcg/actuation 1 inh inhalation QID PRN shortness 01/07/22 aerosol inhaler of breath or wheezing #6.7 grams azithromycin 250 mg tablet See Rx Instructions PO .COMPLEX #6 01/07/22 (Zithromax Z-Stanley) tabs nebulizer accessories #1 ea 01/07/22 nebulizers (AeroEclipse II #1 ea 01/07/22 Nebulizer) prednisone 20 mg tablet 40 mg PO DAILY #10 tabs 01/07/22 labetalol 200 mg tablet 200 mg PO BID 30 days #60 tabs 04/10/22 prednisone 50 mg tablet 50 mg PO DAILY 4 days #4 tabs 04/10/22 cyclobenzaprine 10 mg tablet 10 mg PO Q8H #20 tabs 05/13/22 tramadol 50 mg tablet 50 mg PO Q6H PRN pain #20 tabs 05/13/22 Allergies Allergy/AdvReac Type Severity Reaction Status Date / Time morphine [MORPHINE] Allergy Unknown SHORTNESS Verified 05/12/22 23:20 OF BREATH Penicillins [PENICILLINS] Allergy Unknown RASH Verified 05/12/22 23:20 Review of Systems Review of Systems: Positive left shoulder pain Yes all other systems are reviewed and are negative [facility] Past Medical History Attestation statement: The following information was validated with the patient. Medical History Asthma History of ovarian cyst Hypertension Opioid dependence Surgical History No significant past surgical history Social History Social History Household Members: Children Housing: Other Do you presently have visiting nurse or other home services: No Alcohol intake: never Patient Tobacco Use Status: Current everyday Tobacco user Tobacco use type: Cigarette Cigarette Packs Per Day: 0.5 Cigarettes Per Day: 10.0 Use of substances other than those prescribed or required for medical reasons: No Any prior treatment program specific to substance use: No Advance Directives: Yes Advance Directives on File: Yes Advance Directives Date on File: 12/28/20 Patient : No service: No Current occupational status: unemployed Physical Exam Vital Signs: Vital Signs: Last Vital Signs Temp 97.9 F 09/06/22 04:53 Pulse 66 09/06/22 04:53 Resp 18 09/06/22 04:53 BP 151/84 H 09/06/22 04:53 Pulse Ox 92 09/06/22 04:53 O2 Del Method Room Air 09/06/22 04:53 BMI result Body Mass Index 48.8 Appearance: Alert. Oriented X3. No acute distress. Eyes: Pupils equal, round and reactive to light. ENT: Pharynx normal. Neck: Normal inspection. Neck supple. No lymph nodes noted. No crepitus CVS: Normal heart rate and rhythm. Pulses normal. Normal S1 and S2 Respiratory: No respiratory distress. Breath sounds normal. No Wheezing. No rales Abdomen: Soft and nontender. No rigidity. No distention. good BS x4 Skin: Skin warm and dry. Normal skin color. Normal skin turgor. Extremities: Examination of left shoulder showed pain on movement of the shoulder. Distal pulses intact. Sensation intact over the median radial ulnar axillary nerves. Capillary refill was less than 2 seconds. There is no pain on movement of the right shoulder. Neuro: Oriented X 3. No motor deficit. No sensory deficit. Moving all extermities. No slurred speech Medical Decision Making Medical Decision Making MDM Narrative: Patient's pain most likely musculoskeletal in origin. Pain only occurs when she moves the left shoulder. There is no pain on movement of the right shoulder. Patient has 2 cardiac risk factor including hypertension and also history of smoking. Two sets of cardiac enzymes are negative. Patient's pain atypical for ACS. She is well appearing. Pain is only with movement of the left upper extremity. Will have patient follow-up on an outpatient basis. In stable condition Differential Diagnosis Differential Diagnoses: The differential diagnosis associated with the presentation includes ACS, musculoskeletal chest pain, PE, pneumothorax Admission/Observation Consideration of admission/observation: Escalation of care including admission/observation considered Patient's heart score is a 3. Lab Data 09/06/22 00:34 09/06/22 00:34 Labs: Lab Results 09/06/22 09/06/22 09/06/22 Range/Units 00:34 00:34 00:34 WBC 11.6 H (4.8-10.8) X10*3/uL RBC 4.07 L (4.20-5.50) X10*6/uL Hgb 12.8 (12.0-16.0) g/dl Hct 38.1 (37.0-47.0) % MCV 93.6 (80.0-98.0) fL MCH 31.4 (27.0-33.0) pg MCHC 33.6 (31.0-35.0) g/dl RDW 12.6 (11.0-16.0) % Plt Count 266 (160-400) X10*3/uL MPV 10.8 (9.4-12.3) fL Absolute Nucleated RBC 0.000 (0.0-0.012) X10*3/uL Nucleated RBC % (auto) 0.0 (0.0-0.2) /100WBC Sodium 141 (135-145) mmol/L Potassium 3.9 (3.3-5.1) mmol/L Chloride 104 (96-108) mmol/L Carbon Dioxide 27 (22-29) mmol/L Anion Gap 14 (12-20) BUN 14 (9-16) mg/dL Creatinine 0.73 (0.5-1.4) mg/dL Estim Creat Clear Calc 141.3 Estimated GFR > 60 Random Glucose 104 (60-115) mg/dL Calcium 9.9 D (8.4-10.2) mg/dL Total Bilirubin 0.4 (0.0-1.0) mg/dL AST 29 (5-31) U/L ALT 30 (0-31) U/L Alkaline Phosphatase 48 (39-117) U/L Troponin I High Sens < 2.7 (<3.5-17.0) ng/L Total Protein 7.9 (6.5-8.0) g/dL Albumin 4.3 (3.5-5.0) g/dL 09/06/22 Range/Units 05:09 WBC (4.8-10.8) X10*3/uL RBC (4.20-5.50) X10*6/uL Hgb (12.0-16.0) g/dl Hct (37.0-47.0) % MCV (80.0-98.0) fL MCH (27.0-33.0) pg MCHC (31.0-35.0) g/dl RDW (11.0-16.0) % Plt Count (160-400) X10*3/uL MPV (9.4-12.3) fL Absolute Nucleated RBC (0.0-0.012) X10*3/uL Nucleated RBC % (auto) (0.0-0.2) /100WBC Sodium (135-145) mmol/L Potassium (3.3-5.1) mmol/L Chloride (96-108) mmol/L Carbon Dioxide (22-29) mmol/L Anion Gap (12-20) BUN (9-16) mg/dL Creatinine (0.5-1.4) mg/dL Estim Creat Clear Calc Estimated GFR Random Glucose (60-115) mg/dL Calcium (8.4-10.2) mg/dL Total Bilirubin (0.0-1.0) mg/dL AST (5-31) U/L ALT (0-31) U/L Alkaline Phosphatase (39-117) U/L Troponin I High Sens < 2.7 (<3.5-17.0) ng/L Total Protein (6.5-8.0) g/dL Albumin (3.5-5.0) g/dL Independent Interpretation I performed an independent interpretation of an: EKG and Plain X-Ray Interpretation: My interpretation patient's EKG shows sinus pattern heart rate is 80 IN QRS QT within normal limits is no acute ST segment elevation. My interpretation patient's chest x-ray is grossly negative. Radiology Impression Discussion of test interpretation with radiology: I have reviewed the radiologist's reading. Chronic Conditions Patient?s care impacted by: Hypertension Discharge Plan Discharge Clinical Impression: Acute shoulder pain, Chest pain Patient Disposition: Home, Self-Care Instructions: Chest Pain (DC), Shoulder Pain (ED) Prescriptions: No Action labetalol 200 mg tablet 2 tab PO BID methadone [Methadone Intensol] 10 mg/mL Concentrate 55 mg PO DAILY cyclobenzaprine 10 mg tablet 1 tab PO TID PRN (Reason: Muscle Spasm) albuterol sulfate [ProAir HFA] 90 mcg/actuation HFA aerosol inhaler 2 puff PO QID PRN (Reason: Shortness Of Breath) prednisone 20 mg tablet 40 mg PO DAILY Qty: 10 0RF prednisone 20 mg tablet 40 mg PO DAILY Qty: 10 0RF azithromycin [Zithromax Z-Stanley] 250 mg tablet See Rx Instructions .ROUTE .COMPLEX Qty: 6 0RF Rx Instructions: take 500 mg today (day 1), then 250 mg for 4 days (days 2-5) albuterol sulfate 90 mcg/actuation HFA aerosol inhaler 1 inh inhalation QID PRN (Reason: shortness of breath or wheezing) Qty: 6.7 0RF (DME) nebulizer accessories Kit See Rx Instructions .Route Qty: 1 0RF Rx Instructions: As directed (DME) nebulizers [AeroEclipse II Nebulizer] [facility] [place] See Rx Instructions .Route Qty: 1 0RF Rx Instructions: As directed albuterol sulfate 1.25 mg/3 mL solution for nebulization 1.25 mg inhalation QID PRN (Reason: shortness of breath or wheezing) Qty: 75 0RF prednisone 50 mg tablet 50 mg PO DAILY 4 Days Qty: 4 0RF labetalol 200 mg tablet 200 mg PO BID 30 Days Qty: 60 0RF cyclobenzaprine 10 mg tablet 10 mg PO Q8H Qty: 20 0RF tramadol 50 mg tablet 50 mg PO Q6H PRN (Reason: pain) Qty: 20 0RF prednisone 20 mg tablet 60 mg PO DAILY Qty: 12 0RF Rx Instructions: start prednisone tomorrow medroxyprogesterone [Provera] 10 mg tablet 10 mg PO DAILY Qty: 30 0RF cyclobenzaprine 10 mg tablet 10 mg PO TID PRN (Reason: muscle spasm) Qty: 14 0RF ferrous sulfate 325 mg (65 mg iron) tablet 325 mg PO DAILY Qty: 14 0RF polyethylene glycol 3350 [Miralax] 17 gram/dose powder 17 g PO DAILY PRN (Reason: constipation) Qty: 119 0RF Referrals: Physician,Unknown J [Primary Care Provider] - 09/08/22
[2022-09-06 04:00] VITALS: BP 147/80; PULSE 78; RESP 20; TEMP 37; O2SAT 100
--- NOTE | 2022-09-06 04:45 | PC.NURSE ---
pt to ed for left arm/shoulder pain. Pt states no injury to the area. Pt states the pain is sharp and non-radiating. Pt denies any CP, SOB, feeling of faint, numbness/tingling to extremities or N/V. pt placed on cardiac monitoring displaying NSR, HR ranging from 70s-80.
[2022-09-06 04:53] VITALS: BP 151/84; PULSE 66; RESP 18; TEMP 36.6; O2SAT 92
[2022-09-06 05:40] LABS: Troponin-I High Sensitivity < 2.7 ng/L (<3.5-17.0)
[2022-09-06 05:55] VITALS: BP 147/76; PULSE 80; RESP 20; TEMP 37; O2SAT 98
--- NOTE | 2022-09-06 06:02 | PC.NURSE ---
pt a&0, no sob or chest pain, no sign of distress, Reviewed discharge instructions with pt. pt verbalized understanding. Notified RN Ade.
--- NOTE | 2022-09-06 06:04 | PC.NURSE ---
Pt is for D/c home. Pt given discharge instructions to F/u with pcp. Pt also given D/c information about her Dx and the S/s of the disease process. pt verbalized understanding, all questions answered. Pt ambulated from ED without any difficulty.
== END 2022-09-06 06:03 | disposition home or self-care (01) ==
PROVIDERS: Emergency Provider Emergency Medicine Emergency Medical Services
DX: R07.9 Chest pain, unspecified (principal); M25.512 Pain in left shoulder; I10 Essential (primary) hypertension; F17.210 Nicotine dependence, cigarettes, uncomplicated; F11.20 Opioid dependence, uncomplicated; Z79.899 Other long term (current) drug therapy
CPT/HCPCS: 36415; 71045; 73030; 80053; 84484; 85027; 93005; 99283; 99284

== ENCOUNTER 2022-10-21 07:13 | Emergency (ER) | payer MEDICAID, SELFPAY ==
[2022-10-21 07:34] VITALS: BP 120/64; PULSE 83; RESP 18; TEMP 36.9; O2SAT 95
[2022-10-21 07:38] VITALS: BP 120/64; PULSE 83; RESP 20; TEMP 36.9; O2SAT 94; BMI 49.6
--- NOTE | 2022-10-21 07:42 | ED.GENADULT ---
HPI - General Adult General Chief complaint: General Medical Stated complaint: swollen tonsils Time Seen by Provider: 10/21/22 07:31 Source: patient Mode of arrival: ambulatory Limitations: no limitations History of Present Illness HPI narrative: This is 42 years old female presented to the emergency department complaining of throat pain, she woke up this morning with the pain. Denies any fever chills vomiting. Onset (ago): hour(s) (3) Location: mouth (throat) Severity: moderate Quality: burning Pain Consistency: constant Exacerbating factors: none Associated symptoms: denies other symptoms Related Data Home Medications Medication Instructions Recorded Confirmed albuterol sulfate 90 mcg/actuation 2 puff PO QID PRN Shortness Of 12/28/20 12/28/20 aerosol inhaler (ProAir HFA) Breath cyclobenzaprine 10 mg tablet 1 tab PO TID PRN Muscle Spasm 12/28/20 12/28/20 labetalol 200 mg tablet 2 tab PO BID 12/28/20 12/28/20 methadone 10 mg/mL oral 55 mg PO DAILY 12/28/20 12/28/20 concentrate (Methadone Intensol) Previous Rx's Medication Instructions Recorded prednisone 20 mg tablet 40 mg PO DAILY #10 tabs 12/31/20 prednisone 20 mg tablet 60 mg PO DAILY #12 tabs 02/11/21 cyclobenzaprine 10 mg tablet 10 mg PO TID PRN muscle spasm #14 06/29/21 tabs ferrous sulfate 325 mg (65 mg 325 mg PO DAILY #14 tabs 06/29/21 iron) tablet medroxyprogesterone 10 mg tablet 10 mg PO DAILY #30 tabs 06/29/21 (Provera) polyethylene glycol 3350 17 17 g PO DAILY PRN constipation 06/29/21 gram/dose oral powder (Miralax) #119 grams albuterol sulfate 1.25 mg/3 mL 1.25 mg (3 mL) inhalation QID PRN 01/07/22 solution for nebulization shortness of breath or wheezing #75 mL albuterol sulfate 90 mcg/actuation 1 inh inhalation QID PRN shortness 01/07/22 aerosol inhaler of breath or wheezing #6.7 grams azithromycin 250 mg tablet See Rx Instructions PO .COMPLEX #6 01/07/22 (Zithromax Z-Stanley) tabs nebulizer accessories #1 ea 01/07/22 nebulizers (AeroEclipse II #1 ea 01/07/22 Nebulizer) prednisone 20 mg tablet 40 mg PO DAILY #10 tabs 01/07/22 labetalol 200 mg tablet 200 mg PO BID 30 days #60 tabs 04/10/22 prednisone 50 mg tablet 50 mg PO DAILY 4 days #4 tabs 04/10/22 cyclobenzaprine 10 mg tablet 10 mg PO Q8H #20 tabs 05/13/22 tramadol 50 mg tablet 50 mg PO Q6H PRN pain #20 tabs 05/13/22 clindamycin HCl 300 mg capsule 300 mg PO Q8H #30 caps 10/21/22 prednisone 20 mg tablet 60 mg PO DAILY #12 tabs 10/21/22 Allergies Allergy/AdvReac Type Severity Reaction Status Date / Time morphine [MORPHINE] Allergy Unknown SHORTNESS Verified 05/12/22 23:20 OF BREATH Penicillins [PENICILLINS] Allergy Unknown RASH Verified 05/12/22 23:20 Review of Systems Constitutional: Constitutional: Reports no additional constitutional complaints Eyes: Eyes: Reports no additional eye complaints ENT: Reports other (throat pain) [facility] Past Medical History Medical History Asthma History of ovarian cyst Hypertension Opioid dependence Surgical History No significant past surgical history Social History Social History Household Members: Children Housing: Other Do you presently have visiting nurse or other home services: No Alcohol intake: never Patient Tobacco Use Status: Current everyday Tobacco user Tobacco use type: Cigarette Cigarette Packs Per Day: 0.5 Cigarettes Per Day: 10.0 Smoked in Last 30 Days: Yes Use of substances other than those prescribed or required for medical reasons: No Advance Directives: Yes Advance Directives on File: Yes Advance Directives Date on File: 12/28/20 service: No Current occupational status: unemployed Physical Exam ED Vital Signs: Vital Signs - 24 hr 10/21/22 07:34 10/21/22 07:38 10/21/22 11:04 Temperature 98.5 F 98.5 F 98.5 F Pulse Rate 83 83 79 Respiratory Rate 18 20 16 Blood Pressure 120/64 120/64 145/87 H Pulse Oximetry 95 94 97 Oxygen Delivery Method Room Air Room Air Room Air BMI result Body Mass Index 49.6 Const General: cooperative Nutritional Appearance: well nourished Orientation/consciousness: oriented to person and patient oriented x3 HENMT Head: Yes normal to inspection General nose exam: Normal external nose present Face and sinus: Yes normal facial exam Throat: Yes uvula midline (The uvula is swollen edematous) Neck Neck: Yes normal visual inspection and Yes full ROM Chest Chest palpation & inspection: normal inspection of the chest Cardio Jugular venous distension: no JVD Rate: regular rate Rhythm: regular rhythm GI Inspection: Yes normal to inspection Palpation (GI): Soft to palpation and not firm Auscultation: normal bowel sounds Skin General skin exam: no rashes or lesions noted Neuro General: oriented to person and patient oriented x3 Course Reevaluation(s) Reevaluation #1: Doing much better able to swallow without any problem no toxic-appearing anticipate discharge Time: 11:42 Medications Administered Discontinued Medications Generic Name Dose Route Start Last Admin Trade Name Jassonq PRN Reason Stop Dose Admin Dexamethasone Sodium Phosphate 10 mg 10/21/22 07:39 10/21/22 08:07 Dexamethasone Sod Phosphate 10 Mg/Ml Vial IVPUSH 10/21/22 07:40 10 mg ONCE ONE Administration Diphenhydramine HCl 25 mg 10/21/22 07:39 10/21/22 08:09 Diphenhydramine Hcl 50 Mg/Ml Vial IVPUSH 10/21/22 07:40 25 mg ONCE ONE Administration Medical Decision Making Medical Decision Making [facility] Narrative: Patient presented complaining of sore throat she does have a swollen uvula Differential Diagnosis Differential Diagnoses: The differential diagnosis associated with the presentation includes Strep throat/uvulitis/throat abscess Admission/Observation Consideration of admission/observation: Escalation of care including admission/observation considered Lab Data [facility] Lab Attestation statement: I reviewed the patient's lab results. 10/21/22 07:57 10/21/22 07:57 Labs: Lab Results 10/21/22 10/21/22 10/21/22 Range/Units 07:57 07:57 07:59 WBC 9.2 (4.8-10.8) X10*3/uL RBC 3.92 L (4.20-5.50) X10*6/uL Hgb 12.4 (12.0-16.0) g/dl Hct 37.4 (37.0-47.0) % MCV 95.4 (80.0-98.0) fL MCH 31.6 (27.0-33.0) pg MCHC 33.2 (31.0-35.0) g/dl RDW 13.1 (11.0-16.0) % Plt Count 230 (160-400) X10*3/uL MPV 11.1 (9.4-12.3) fL Immature Gran % (Auto) 0.1 (0.0-0.4) % Neut % (Auto) 39.9 L (45-73) % Lymph % (Auto) 50.8 H (20-40) % [place] % (Auto) 5.6 (2-11) % Eos % (Auto) 3.2 (0-4) % Baso % (Auto) 0.4 (0-2) % Lymph # (Auto) 4.7 (1.2-4.9) X10*3/uL [place] # (Auto) 0.5 (0.1-1.2) X10*3/uL Eos # (Auto) 0.3 (0.0-0.4) X10*3/uL Baso # (Auto) 0.0 (0.0-0.2) X10*3/uL Abs Immat Gran (auto) 0.01 (0.00-0.03) X10*3/uL Absolute Neuts (auto) 3.7 (2.0-8.3) x10*3/uL Absolute Nucleated RBC 0.000 (0.0-0.012) X10*3/uL Nucleated RBC % (auto) 0.0 (0.0-0.2) /100WBC Sodium 141 (135-145) mmol/L Potassium 3.7 (3.3-5.1) mmol/L Chloride 110 H (96-108) mmol/L Carbon Dioxide 24 (22-29) mmol/L Anion Gap 11 L (12-20) BUN 14 (9-16) mg/dL Creatinine 0.75 (0.5-1.4) mg/dL Estim Creat Clear Calc 138.9 Estimated GFR > 60 Random Glucose 145 H (60-115) mg/dL Calcium 8.6 D (8.4-10.2) mg/dL Total Bilirubin 0.2 (0.0-1.0) mg/dL AST 21 (5-31) U/L ALT 20 (0-31) U/L Alkaline Phosphatase 39 (39-117) U/L Total Protein 7.0 (6.5-8.0) g/dL Albumin 3.9 (3.5-5.0) g/dL S. pyogenes GrpA YVETTE Negative (Negative) Discharge Plan Discharge Clinical Impression: Uvulitis Patient Disposition: Home, Self-Care Instructions: Uvulitis (ED) Additional Instructions: Follow-up with primary care physician return to the emergency room if you are worse unable to swallow Prescriptions: New clindamycin HCl 300 mg capsule 300 mg PO Q8H Qty: 30 0RF prednisone 20 mg tablet 60 mg PO DAILY Qty: 12 0RF No Action labetalol 200 mg tablet 2 tab PO BID methadone [Methadone Intensol] 10 mg/mL Concentrate 55 mg PO DAILY cyclobenzaprine 10 mg tablet 1 tab PO TID PRN (Reason: Muscle Spasm) albuterol sulfate [ProAir HFA] 90 mcg/actuation HFA aerosol inhaler 2 puff PO QID PRN (Reason: Shortness Of Breath) prednisone 20 mg tablet 40 mg PO DAILY Qty: 10 0RF prednisone 20 mg tablet 40 mg PO DAILY Qty: 10 0RF azithromycin [Zithromax Z-Stanley] 250 mg tablet See Rx Instructions .ROUTE .COMPLEX Qty: 6 0RF Rx Instructions: take 500 mg today (day 1), then 250 mg for 4 days (days 2-5) albuterol sulfate 90 mcg/actuation HFA aerosol inhaler 1 inh inhalation QID PRN (Reason: shortness of breath or wheezing) Qty: 6.7 0RF (DME) nebulizer accessories Kit See Rx Instructions .Route Qty: 1 0RF Rx Instructions: As directed (DME) nebulizers [place]AeroEclipse [place]ul[place] [facility] [place]ructions .Route Qty: 1 0RF Rx Instructions: As directed albuterol sulfate 1.25 mg/3 mL solution for nebulization 1.25 mg inhalation QID PRN (Reason: shortness of breath or wheezing) Qty: 75 0RF prednisone 50 mg tablet 50 mg PO DAILY 4 Days Qty: 4 0RF labetalol 200 mg tablet 200 mg PO BID 30 Days Qty: 60 0RF cyclobenzaprine 10 mg tablet 10 mg PO Q8H Qty: 20 0RF tramadol 50 mg tablet 50 mg PO Q6H PRN (Reason: pain) Qty: 20 0RF prednisone 20 mg tablet 60 mg PO DAILY Qty: 12 0RF Rx Instructions: start prednisone tomorrow medroxyprogesterone [Provera] 10 mg tablet 10 mg PO DAILY Qty: 30 0RF cyclobenzaprine 10 mg tablet 10 mg PO TID PRN (Reason: muscle spasm) Qty: 14 0RF ferrous sulfate 325 mg (65 mg iron) tablet 325 mg PO DAILY Qty: 14 0RF polyethylene glycol 3350 [Miralax] 17 gram/dose powder 17 g PO DAILY PRN (Reason: constipation) Qty: 119 0RF Referrals: Physician,Unknown J [Primary Care Provider] - 3 days
[2022-10-21 07:59] LABS: MANUAL DIFF FLAG NO
[2022-10-21 08:00] LABS: Basophils Percent Auto 0.4 % (0-2); Eosinophils Absolute Auto 0.3 X10*3/uL (0.0-0.4); Eosinophils Percent Auto 3.2 % (0-4); Hematocrit 37.4 % (37.0-47.0); Hemoglobin 12.4 g/dl (12.0-16.0); Imm Gran Abs Auto 0.01 X10*3/uL (0.00-0.03); Imm Gran Pct Auto 0.1 % (0.0-0.4); Lymphocytes Absolute Auto 4.7 X10*3/uL (1.2-4.9); Lymphocytes Percent Auto 50.8 % (20-40); Mean Corpuscular HGB Conc 33.2 g/dl (31.0-35.0); Mean Corpuscular Hemoglobin 31.6 pg (27.0-33.0); Mean Corpuscular Volume 95.4 fL (80.0-98.0); Mean Platelet Volume 11.1 fL (9.4-12.3); Monocytes Absolute Auto 0.5 X10*3/uL (0.1-1.2); Monocytes Percent Auto 5.6 % (2-11); Neutrophils Absolute Auto 3.7 x10*3/uL (2.0-8.3); Neutrophils Percent Auto 39.9 % (45-73); Platelet Count 230 X10*3/uL (160-400); Red Blood Count 3.92 X10*6/uL (4.20-5.50); Red Cell Distribution Width 13.1 % (11.0-16.0); White Blood Count 9.2 X10*3/uL (4.8-10.8)
[2022-10-21] MEDS: dexAMETHasone sod phosphate 10 MG/ML VIAL IVPUSH (08:07)
[2022-10-21] MEDS: diphenhydrAMINE HCL 50 MG/ML VIAL 25 MG IVPUSH (08:09)
[2022-10-21 08:15] LABS: IDNOW Serial# 6674DD1D
[2022-10-21 08:16] LABS: Strep A Nucleic Acid Negative (Negative)
[2022-10-21 08:16] LABS: Alanine Aminotransferase 20 U/L (0-31); Albumin Level 3.9 g/dL (3.5-5.0); Alkaline Phosphatase 39 U/L (39-117); Anion Gap 11 (12-20); Aspartate Amino Transferase 21 U/L (5-31); Bilirubin Total 0.2 mg/dL (0.0-1.0); Blood Urea Nitrogen 14 mg/dL (9-16); Calcium 8.6 mg/dL (8.4-10.2); Carbon Dioxide 24 mmol/L (22-29); Chloride 110 mmol/L (96-108); Creatinine Clr Calc Pharmacy 138.9; Estimated Glomerular Filt Rate > 60; Glucose Random 145 mg/dL (60-115); Potassium 3.7 mmol/L (3.3-5.1); Sodium 141 mmol/L (135-145)
--- NOTE | 2022-10-21 10:17 | PC.NURSE ---
pt a&o x4, pleasant, calm, and cooperative. appears very sleepy and has been asleep on stretcher for majority of hospital visit. when pt wakes up, asking for water, Dr. Brady approved and pt given water. pt is currently resting quietly on stretcher in no apparent distress. tm
[2022-10-21 11:04] VITALS: BP 145/87; PULSE 79; RESP 16; TEMP 36.9; O2SAT 97
--- NOTE | 2022-10-21 11:31 | PC.NURSE ---
pt reported and appeared sweaty. given ice pack and vitals taken. BP slightly elevated in 140s, pt hx HTN. pt otherwise reports she feels fine. vss. Dr. Brady aware. wctm
== END 2022-10-21 12:10 | disposition home or self-care (01) ==
PROVIDERS: Emergency Provider Emergency Medicine
DX: K12.2 Cellulitis and abscess of mouth (principal); J02.9 Acute pharyngitis, unspecified; I10 Essential (primary) hypertension; F11.20 Opioid dependence, uncomplicated; F17.210 Nicotine dependence, cigarettes, uncomplicated
CPT/HCPCS: 36415; 80053; 85025; 87150; 87651; 96374; 96375; 99284; J1100; J1200

== ENCOUNTER 2022-11-04 20:59 | Emergency (ER) | payer MEDICAID, SELFPAY ==
[2022-11-04 21:27] VITALS: BP 122/77; PULSE 73; RESP 16; TEMP 35.7; O2SAT 93; BMI 40.3
--- NOTE | 2022-11-04 21:50 | ED.PSYCH ---
HPI - Psych General Chief Complaint: ETOH/Substance Use Stated Complaint: ANXIETY ETOH Time Seen by Provider: 11/04/22 21:39 Source: patient and family Mode of arrival: EMS Limitations: no limitations History of Present Illness HPI Narrative: Patient with history of alcohol abuse had a panic attack prior to arrival, after arrival in the ER patient been sleeping with stable vitals no other substance abuse Related Data Home Medications Medication Instructions Recorded Confirmed albuterol sulfate 90 mcg/actuation 2 puff PO QID PRN Shortness Of 12/28/20 12/28/20 aerosol inhaler (ProAir HFA) Breath cyclobenzaprine 10 mg tablet 1 tab PO TID PRN Muscle Spasm 12/28/20 12/28/20 labetalol 200 mg tablet 2 tab PO BID 12/28/20 12/28/20 methadone 10 mg/mL oral 55 mg PO DAILY 12/28/20 12/28/20 concentrate (Methadone Intensol) Previous Rx's Medication Instructions Recorded prednisone 20 mg tablet 40 mg PO DAILY #10 tabs 12/31/20 prednisone 20 mg tablet 60 mg PO DAILY #12 tabs 02/11/21 cyclobenzaprine 10 mg tablet 10 mg PO TID PRN muscle spasm #14 06/29/21 tabs ferrous sulfate 325 mg (65 mg 325 mg PO DAILY #14 tabs 06/29/21 iron) tablet medroxyprogesterone 10 mg tablet 10 mg PO DAILY #30 tabs 06/29/21 (Provera) polyethylene glycol 3350 17 17 g PO DAILY PRN constipation 06/29/21 gram/dose oral powder (Miralax) #119 grams albuterol sulfate 1.25 mg/3 mL 1.25 mg (3 mL) inhalation QID PRN 01/07/22 solution for nebulization shortness of breath or wheezing #75 mL albuterol sulfate 90 mcg/actuation 1 inh inhalation QID PRN shortness 01/07/22 aerosol inhaler of breath or wheezing #6.7 grams azithromycin 250 mg tablet See Rx Instructions PO .COMPLEX #6 01/07/22 (Zithromax Z-Stanley) tabs nebulizer accessories #1 ea 01/07/22 nebulizers (AeroEclipse II #1 ea 01/07/22 Nebulizer) prednisone 20 mg tablet 40 mg PO DAILY #10 tabs 01/07/22 labetalol 200 mg tablet 200 mg PO BID 30 days #60 tabs 04/10/22 prednisone 50 mg tablet 50 mg PO DAILY 4 days #4 tabs 04/10/22 cyclobenzaprine 10 mg tablet 10 mg PO Q8H #20 tabs 05/13/22 tramadol 50 mg tablet 50 mg PO Q6H PRN pain #20 tabs 05/13/22 clindamycin HCl 300 mg capsule 300 mg PO Q8H #30 caps 10/21/22 ibuprofen 800 mg tablet 800 mg PO Q8H PRN pain #20 tabs 10/21/22 prednisone 20 mg tablet 60 mg PO DAILY #12 tabs 10/21/22 Allergies Allergy/AdvReac Type Severity Reaction Status Date / Time morphine [MORPHINE] Allergy Unknown SHORTNESS Verified 05/12/22 23:20 OF BREATH Penicillins [PENICILLINS] Allergy Unknown RASH Verified 05/12/22 23:20 Review of Systems Review of Systems: Yes all other systems are reviewed and are negative [facility] Past Medical History Medical History Asthma History of ovarian cyst Hypertension Opioid dependence Surgical History No significant past surgical history Social History Social History Household Members: Children Housing: Other Do you presently have visiting nurse or other home services: No Alcohol intake: never Patient Tobacco Use Status: Current everyday Tobacco user Tobacco use type: Cigarette Cigarette Packs Per Day: 0.5 Cigarettes Per Day: 10.0 Advance Directives: Yes Advance Directives on File: Yes Advance Directives Date on File: 12/28/20 service: No Current occupational status: unemployed Physical Exam Vital Signs: Vital Signs: Last Vital Signs Temp 96.2 F L 11/04/22 21:27 Pulse 73 11/04/22 21:27 Resp 16 11/04/22 21:27 BP 122/77 11/04/22 21:27 Pulse Ox 93 11/04/22 21:27 O2 Del Method Room Air 11/04/22 21:27 BMI result Body Mass Index 40.3 Appearance: Sleeping without any distress Eyes: PERRLA, No Nystagmus ENT: Pharynx normal. Oral Mucosa moist Neck: Normal inspection. Neck supple. CVS: Normal heart rate and rhythm. Pulses normal. Respiratory: No respiratory distress. Equal air entry bilateral, no wheezing/rales/rhonchi Abdomen: Soft and nontender. Bowel sounds are present, no mass palpable, no CVA tenderness Skin: Skin warm and dry. Normal skin color. Normal skin turgor. Extremities: No lower extremity edema. No calf tenderness Neuro: Sleepy but arousable No motor deficit. Medical Decision Making Medical Decision Making [facility] Narrative: Patient ambulate in steady gait calm and cooperative discharge patient home Discharge Plan Discharge Clinical Impression: Alcoholic intoxication Patient Disposition: Home, Self-Care Instructions: Alcohol Intoxication (ED) Additional Instructions: Stop drinking alcohol Follow detox as needed Prescriptions: No Action labetalol 200 mg tablet 2 tab PO BID methadone [Methadone Intensol] 10 mg/mL Concentrate 55 mg PO DAILY cyclobenzaprine 10 mg tablet 1 tab PO TID PRN (Reason: Muscle Spasm) albuterol sulfate [ProAir HFA] 90 mcg/actuation HFA aerosol inhaler 2 puff PO QID PRN (Reason: Shortness Of Breath) prednisone 20 mg tablet 40 mg PO DAILY Qty: 10 0RF prednisone 20 mg tablet 40 mg PO DAILY Qty: 10 0RF azithromycin [Zithromax Z-Stanley] 250 mg tablet See Rx Instructions .ROUTE .COMPLEX Qty: 6 0RF Rx Instructions: take 500 mg today (day 1), then 250 mg for 4 days (days 2-5) albuterol sulfate 90 mcg/actuation HFA aerosol inhaler 1 inh inhalation QID PRN (Reason: shortness of breath or wheezing) Qty: 6.7 0RF (DME) nebulizer accessories Kit See Rx Instructions .Route Qty: 1 0RF Rx Instructions: As directed (DME) nebulizers [AeroEclipse II Nebulizer] [facility] [place] Instructions .Route Qty: 1 0RF Rx Instructions: As directed albuterol sulfate 1.25 mg/3 mL solution for nebulization 1.25 mg inhalation QID PRN (Reason: shortness of breath or wheezing) Qty: 75 0RF prednisone 50 mg tablet 50 mg PO DAILY 4 Days Qty: 4 0RF labetalol 200 mg tablet 200 mg PO BID 30 Days Qty: 60 0RF cyclobenzaprine 10 mg tablet 10 mg PO Q8H Qty: 20 0RF tramadol 50 mg tablet 50 mg PO Q6H PRN (Reason: pain) Qty: 20 0RF prednisone 20 mg tablet 60 mg PO DAILY Qty: 12 0RF Rx Instructions: start prednisone tomorrow medroxyprogesterone [Provera] 10 mg tablet 10 mg PO DAILY Qty: 30 0RF cyclobenzaprine 10 mg tablet 10 mg PO TID PRN (Reason: muscle spasm) Qty: 14 0RF ferrous sulfate 325 mg (65 mg iron) tablet 325 mg PO DAILY Qty: 14 0RF polyethylene glycol 3350 [Miralax] 17 gram/dose powder 17 g PO DAILY PRN (Reason: constipation) Qty: 119 0RF clindamycin HCl 300 mg capsule 300 mg PO Q8H Qty: 30 0RF prednisone 20 mg tablet 60 mg PO DAILY Qty: 12 0RF ibuprofen 800 mg tablet 800 mg PO Q8H PRN (Reason: pain) Qty: 20 0RF Stand Alone Forms: Substance Abuse Outpt Detox Interventions: ED Discharge Assessment Last Done: 11/04/22 23:16 Discharge Date/Time: 11/04/22 23:17
== END 2022-11-04 23:17 | disposition home or self-care (01) ==
PROVIDERS: Emergency Provider Internal Medicine
DX: F10.220 Alcohol dependence with intoxication, uncomplicated (principal); Y90.9 Presence of alcohol in blood, level not specified; F11.20 Opioid dependence, uncomplicated
CPT/HCPCS: 99282

== ENCOUNTER 2023-04-03 23:09 | Emergency (ER) | payer MEDICAID, SELFPAY ==
--- NOTE | ~2023-04-03 | XR_ITS ---
EXAMINATION: XR HAND, LEFT CLINICAL INFORMATION: Pain, swelling. COMPARISON: None available. TECHNIQUE: PA, lateral, and oblique views of the left hand. FINDINGS: No fracture. Anatomic alignment. Negative ulnar variance. No abnormal soft tissue calcifications. Diffuse nonspecific soft tissue swelling. XR/XR hand LT min 3V IMPRESSION: 1. No acute fractures or malalignment. 2. Negative ulnar variance. 3. Diffuse nonspecific soft tissue swelling.
[2023-04-03 23:11] VITALS: BP 206/95; PULSE 68; RESP 18; TEMP 36.2; O2SAT 97; BMI 48.5
--- NOTE | 2023-04-03 23:25 | ECG_ITS ---
Test Reason : hand pain that radiates to chest Blood Pressure : / mmHG Vent. Rate : 068 BPM Atrial Rate : 068 BPM P-R Int : 192 ms QRS Dur : 104 ms QT Int : 422 ms P-R-T Axes : 048 055 033 degrees QTc Int : 448 ms Normal sinus rhythm Normal ECG When compared with ECG of 06-SEP-2022 00:37, No significant change was found Referred By: Berenice Smith Electronically Signed By:Jonas Padgett
--- NOTE | 2023-04-03 23:47 | MHC.EDTECH ---
Patient brought into triage area, EKG taken per order and signed by provider, Labs and a Sars/Flu/Rsv were obtained and sent to lab.Patient brought back to waiting area.
[2023-04-03 23:54] LABS: MANUAL DIFF FLAG NO
[2023-04-03 23:57] LABS: Basophils Absolute Auto 0.1 X10*3/uL (0.0-0.2); Basophils Percent Auto 0.5 % (0-2); Eosinophils Absolute Auto 0.3 X10*3/uL (0.0-0.4); Eosinophils Percent Auto 2.3 % (0-4); Hematocrit 36.1 % (37.0-47.0); Hemoglobin 11.9 g/dl (12.0-16.0); Imm Gran Abs Auto 0.03 X10*3/uL (0.00-0.03); Imm Gran Pct Auto 0.2 % (0.0-0.4); Lymphocytes Percent Auto 32.4 % (20-40); Mean Corpuscular Hemoglobin 30.8 pg (27.0-33.0); Mean Corpuscular Volume 93.5 fL (80.0-98.0); Monocytes Absolute Auto 0.9 X10*3/uL (0.1-1.2); Monocytes Percent Auto 7.6 % (2-11); Neutrophils Absolute Auto 7.1 x10*3/uL (2.0-8.3); Platelet Count 256 X10*3/uL (160-400); Red Blood Count 3.86 X10*6/uL (4.20-5.50); Red Cell Distribution Width 12.6 % (11.0-16.0); White Blood Count 12.4 X10*3/uL (4.8-10.8)
[2023-04-04 00:12] LABS: Alanine Aminotransferase 21 U/L (0-31); Albumin Level 4.1 g/dL (3.5-5.0); Alkaline Phosphatase 43 U/L (39-117); Anion Gap 10 (12-20); Aspartate Amino Transferase 24 U/L (5-31); Bilirubin Total 0.3 mg/dL (0.0-1.0); Blood Urea Nitrogen 18 mg/dL (9-16); Calcium 9.1 mg/dL (8.4-10.2); Carbon Dioxide 28 mmol/L (22-29); Chloride 105 mmol/L (96-108); Estimated Glomerular Filt Rate > 60; Glucose Random 95 mg/dL (60-115); Magnesium 1.8 mg/dL (1.6-2.6); Potassium 3.8 mmol/L (3.3-5.1); Sodium 139 mmol/L (135-145); Total Protein 7.5 g/dL (6.5-8.0)
[2023-04-04 00:18] LABS: Troponin-I High Sensitivity < 2.7 ng/L (<3.5-17.0)
[2023-04-04 00:44] LABS: Influenza A PCR NEGATIVE (Negative); Influenza B PCR NEGATIVE (Negative); Resp Syncy Virus RNA Qual PCR NEGATIVE (Negative); SARS COV2 PCR INHOUSE NEGATIVE (Negative)
--- NOTE | 2023-04-04 01:04 | ED_ITS ---
HPI - Extremity Problem General Chief complaint: Extremity Injury, Upper Stated complaint: left hand swollen, pain radiates up arm to back Time Seen by Provider: 04/04/23 01:09 Source: patient Mode of arrival: ambulatory Limitations: no limitations History of Present Illness HPI Narrative: Patient is a 43 year old assigned female at with a history of HTN and asthma presenting to the emergency department today with left hand swelling and pain. Patient states that since yesterday she has had left hand swelling and pain that radiates up her left hand into her arm. Patient denies any dizziness, lightheadedness, abdominal pain, nausea, vomiting, fever, chills, blurry vision, double vision, loss of vision, chest pain, difficulty breathing, shortness of breath, back pain, night sweats, pain with urination, increased urinary frequency, increased urinary urgency, blood in her urine or stool, syncope or a near syncopal episode, recent trauma or falls, bowel incontinence, bladder incontinence, bowel retention, bladder retention, or any other complaints at this time. MD Complaint: extremity pain and extremity swelling Onset (ago): day(s) (1) Pain Consistency: constant Location: left Severity scale (1-10): 3 Quality: aching and dull Radiation: distal Relieving factors: nothing Exacerbating factors: nothing Associated symptoms: denies other symptoms Related Data Home Medications Medication Instructions Recorded Confirmed albuterol sulfate 90 mcg/actuation 2 puff PO QID PRN Shortness Of 12/28/20 12/28/20 aerosol inhaler (ProAir HFA) Breath cyclobenzaprine 10 mg tablet 1 tab PO TID PRN Muscle Spasm 12/28/20 12/28/20 labetalol 200 mg tablet 2 tab PO BID 12/28/20 12/28/20 methadone 10 mg/mL oral 55 mg PO DAILY 12/28/20 12/28/20 concentrate (Methadone Intensol) Previous Rx's Medication Instructions Recorded prednisone 20 mg tablet 40 mg (2 x 20 mg) PO DAILY #10 tabs 12/31/20 prednisone 20 mg tablet 60 mg (3 x 20 mg) PO DAILY #12 tabs 02/11/21 cyclobenzaprine 10 mg tablet 10 mg PO TID PRN muscle spasm #14 06/29/21 tabs ferrous sulfate 325 mg (65 mg 325 mg PO DAILY #14 tabs 06/29/21 iron) tablet medroxyprogesterone 10 mg tablet 10 mg PO DAILY #30 tabs 06/29/21 (Provera) polyethylene glycol 3350 17 17 g PO DAILY PRN constipation 06/29/21 gram/dose oral powder (Miralax) #119 grams albuterol sulfate 1.25 mg/3 mL 1.25 mg (3 mL) inhalation QID PRN 01/07/22 solution for nebulization shortness of breath or wheezing #75 mL albuterol sulfate 90 mcg/actuation 1 inh inhalation QID PRN shortness 01/07/22 aerosol inhaler of breath or wheezing #6.7 grams azithromycin 250 mg tablet See Rx Instructions PO .COMPLEX #6 01/07/22 (Zithromax Z-Stanley) tabs nebulizer accessories #1 ea 01/07/22 nebulizers (AeroEclipse II #1 ea 01/07/22 Nebulizer) prednisone 20 mg tablet 40 mg (2 x 20 mg) PO DAILY #10 tabs 01/07/22 labetalol 200 mg tablet 200 mg PO BID 30 days #60 tabs 04/10/22 prednisone 50 mg tablet 50 mg PO DAILY 4 days #4 tabs 04/10/22 cyclobenzaprine 10 mg tablet 10 mg PO Q8H #20 tabs 05/13/22 tramadol 50 mg tablet 50 mg PO Q6H PRN pain #20 tabs 05/13/22 clindamycin HCl 300 mg capsule 300 mg PO Q8H #30 caps 10/21/22 ibuprofen 800 mg tablet 800 mg PO Q8H PRN pain #20 tabs 10/21/22 prednisone 20 mg tablet 60 mg (3 x 20 mg) PO DAILY #12 tabs 10/21/22 cephalexin 500 mg capsule 500 mg PO Q6H 7 days #28 caps 04/04/23 naproxen 500 mg tablet 500 mg PO BID 7 days #14 tabs 04/04/23 prednisone 20 mg tablet 20 mg PO DAILY 7 days #7 tabs 04/04/23 Allergies Allergy/AdvReac Type Severity Reaction Status Date / Time morphine [MORPHINE] Allergy Unknown SHORTNESS Verified 05/12/22 23:20 OF BREATH Penicillins [PENICILLINS] Allergy Unknown RASH Verified 05/12/22 23:20 Review of Systems 2 Constitutional: Constitutional: Reports no additional constitutional complaints, Denies chills, Denies fever(s) and Denies night sweats Eyes: Eyes: Reports no additional eye complaints, Denies blurry vision, Denies change in vision, Denies diplopia, Denies eye discharge, Denies loss of vision and Denies eye pain ENT: Denies dizziness Cardiovascular: Cardiovascular: Reports no additional cardiovascular complaints, Denies chest pain, Denies lightheadedness, Denies Loss of Consciousness and Denies dyspnea Respiratory: Respiratory: Reports no additional respiratory complaints and Denies dyspnea Gastrointestinal: Gastrointestinal: Reports no additional gastrointestinal complaints, Denies abdominal pain, Denies melena, Denies hematochezia, Denies change in bowel habits and Denies change in stool character Genitourinary: Genitourinary: Denies hematuria, Denies urinary frequency, Denies dysuria, Denies urinary incontinence, Denies urinary hesitancy and Denies urinary urgency Musculoskeletal: Musculoskeletal: Reports no additional musculoskeletal complaints, Denies numbness and Denies tingling Comments: left hand pain and swelling Neurologic: Denies dizziness, Denies loss of vision, Denies numbness and Denies tingling Psychiatric: Psychiatric: Reports no additional psychiatric complaints Endocrine: Endocrine: Reports no additional endocrine complaints Hematologic/Lymphatic: Hematologic/Lymphatic: Reports no additional hematologic/lymphatic complaints Allergic/Immunologic: Allergic/Immunologic: Reports no additional allergic/immunologic complaints PMF Past Medical History Attestation statement: The following information was validated with the patient. Source: old records reviewed and nursing notes reviewed Onset Date is defined in the Problem List Problems that require an onset date and time if occurred within 24 hrs of arrival to the ED Aortic Dissection and Rupture; Neurologic impairment; Cardiopulmonary Arrest; Endotracheal Intubation; Insertion or Replacement of Mechanical Circulatory Assist Device Medical History Abnormal uterine bleeding COVID-19 Rhinovirus Left hip pain Asthma exacerbation Acute respiratory failure with hypoxia Opioid dependence Asthma Hypertension History of ovarian cyst Surgical History No significant past surgical history Social History Social History Household Members: Children Housing: Other Do you presently have visiting nurse or other home services: No Alcohol intake: never Patient Tobacco Use Status: Current everyday Tobacco user Tobacco use type: Cigarette Cigarette Packs Per Day: 0.5 Cigarettes Per Day: 10.0 Advance Directives: Yes Advance Directives on File: Yes Advance Directives Date on File: 12/28/20 service: No Current occupational status: unemployed Physical Exam 2 Vital Signs: Vital Signs: Last Vital Signs Temp 97.3 F 04/04/23 01:07 Pulse 77 04/04/23 01:07 Resp 18 04/04/23 01:07 BP 149/96 H 04/04/23 01:07 Pulse Ox 97 04/04/23 01:07 O2 Del Method Room Air 04/04/23 01:07 BMI result Body Mass Index 48.5 Const: General: cooperative, no acute distress, alert and awake Nutritional Appearance: well nourished Orientation/consciousness: patient oriented x3 Limitations: no limitations HEENT: Head: Yes normal to inspection and Yes atraumatic Ears: hearing grossly normal bilaterally and external ears normal General nose exam: Normal external nose present, no nasal discharge noted and no epistaxis Face and sinus: Yes normal facial exam, No abrasion and No laceration Mouth: Normal oral and palatal mucosa present, no drooling and no muffled voice Eyes: General: appearance normal, both eyes and all related structures P eriorbital: periorbital findings normal Eyelids: Yes eyelids normal C onjunctivae: conjunctivae normal Pupils: Equal, round and reactive pupils present EOM: EOMs intact bilaterally Neck: Neck: Yes normal visual inspection, Yes full ROM and Yes no lymphadenopathy Chest: Chest palpation & inspection: normal inspection of the chest Resp: Effort & Inspection: normal respiratory effort and able to speak in complete sentences GI: Inspection: Yes normal to inspection Neuro: General: patient oriented x3 and moves all extremities Cranial nerves: Yes Equal, round and reactive pupils present Cognition (Neuro): n ormal cognition Motor exam (neuro): 5/5 motor strength present throughout Sensory Exam: Normal double simultaneous stimulation for sensation C oordination: [id number] test normal Extrem: Other: minimal redness and swelling to the dorsal left hand General: Yes full ROM and Yes capillary refill normal Psych: Appearance: grossly normal Mental Status: mental status grossly normal Affect: normal affect Attitude: cooperative Thought process: N ormal thought process present Thought content: Normal thought content present Insight: Good insight present (Psych) Medical Decision Making Medical Decision Making MDM Narrative: Patient is a 43 year old assigned female at with a history of HTN and asthma presenting to the emergency department today with left hand pain and swelling. Patient's physical exam was as noted in the physical exam portion of this note. Patient's blood work showed a slightly elevated WBC count of 12.4. The rest of the patient's labs were unremarkable. Patient's left hand x-ray showed no acute process. I explained my physical exam findings as well as all test results to the patient. I answered all questions asked by the patient. I stressed the importance of the patient taking her medication as prescribed. I stressed the importance of the patient following up with her primary care provider. I stressed the importance of the patient returning to the emergency department immediately if her symptoms were to worsen or if she were to develop any dizziness, shortness of breath, difficulty breathing, chest pain, blurry vision, loss of vision, nausea, vomiting, abdominal pain, fever, chills, back pain, or any other complaints. Patient verbalized agreement and understanding with this treatment plan and discharge. Differential Diagnosis Differential Diagnoses: The differential diagnosis associated with the presentation includes Left hand swelling Left hand cellulitis Left hand arthritis Admission/Observation Consideration of admission/observation: Escalation of care including admission/observation considered Patient would have been admitted to the hospital had her work up had any findings where hospital admission was appropriate and her clinical presentation warranted hospital admission. Lab Data [facility] Lab Attestation statement: I reviewed the patient's lab results. My interpretation of these results are in the MDM Rationale portion of this note. 04/03/23 23:47 04/03/23 23:47 Labs: Lab Results 04/03/23 04/03/23 Range/Units 23:46 23:47 WBC 12.4 H (4.8-10.8) X10*3/uL RBC 3.86 L (4.20-5.50) X10*6/uL Hgb 11.9 L (12.0-16.0) g/dl Hct 36.1 L (37.0-47.0) % MCV 93.5 (80.0-98.0) fL MCH 30.8 (27.0-33.0) pg MCHC 33.0 (31.0-35.0) g/dl RDW 12.6 (11.0-16.0) % Plt Count 256 (160-400) X10*3/uL MPV 11.0 (9.4-12.3) fL Immature Gran % (Auto) 0.2 (0.0-0.4) % Neut % (Auto) 57.0 (45-73) % Lymph % (Auto) 32.4 (20-40) % Osborne % (Auto) 7.6 (2-11) % Eos % (Auto) 2.3 (0-4) % Baso % (Auto) 0.5 (0-2) % Lymph # (Auto) 4.0 (1.2-4.9) X10*3/uL Osborne # (Auto) 0.9 (0.1-1.2) X10*3/uL Eos # (Auto) 0.3 (0.0-0.4) X10*3/uL Baso # (Auto) 0.1 (0.0-0.2) X10*3/uL Abs Immat Gran (auto) 0.03 (0.00-0.03) X10*3/uL Absolute Neuts (auto) 7.1 (2.0-8.3) x10*3/uL Absolute Nucleated RBC 0.000 (0.0-0.012) X10*3/uL Nucleated RBC % (auto) 0.0 (0.0-0.2) /100WBC Sodium 139 (135-145) mmol/L Potassium 3.8 (3.3-5.1) mmol/L Chloride 105 (96-108) mmol/L Carbon Dioxide 28 (22-29) mmol/L Anion Gap 10 L (12-20) BUN 18 H (9-16) mg/dL Creatinine 0.76 (0.5-1.4) mg/dL Estim Creat Clear Calc 134.0 Estimated GFR > 60 Random Glucose 95 (60-115) mg/dL Calcium 9.1 (8.4-10.2) mg/dL Magnesium 1.8 (1.6-2.6) mg/dL Total Bilirubin 0.3 (0.0-1.0) mg/dL AST 24 (5-31) U/L ALT 21 (0-31) U/L Alkaline Phosphatase 43 (39-117) U/L Troponin I High Sens < 2.7 (<3.5-17.0) ng/L Total Protein 7.5 (6.5-8.0) g/dL Albumin 4.1 (3.5-5.0) g/dL Influenza Type A (PCR) NEGATIVE (Negative) Influenza Type B (PCR) NEGATIVE (Negative) RSV RNA Qual (PCR) NEGATIVE (Negative) SARS-CoV-2 RNA (RT-PCR) NEGATIVE (Negative) Independent Interpretation I performed an independent interpretation of an: Plain X-Ray Interpretation: My interpretation is in agreement with the radiologist's impression of this imaging study. - EXAMINATION: XR HAND, LEFT CLINICAL INFORMATION: Pain, swelling. COMPARISON: None available. TECHNIQUE: PA, lateral, and oblique views of the left hand. FINDINGS: No fracture. Anatomic alignment. Negative ulnar variance. No abnormal soft tissue calcifications. Diffuse nonspecific soft tissue swelling. XR/XR hand LT min 3V IMPRESSION: 1. No acute fractures or malalignment. 2. Negative ulnar variance. 3. Diffuse nonspecific soft tissue swelling. Dictated By: Ana Ramirez Signed By: Electronically signed by Ana Ramirez 04/03/23 [id number] Radiology Impression Discussion of test interpretation with radiology: I have reviewed the radiologist's reading. Prescription Management I considered prescription management with: Antibiotic (patient prescribed an antibiotic for possible cellulitis) Chronic Conditions Patient?s care impacted by: Hypertension Discharge Plan Discharge Clinical Impression: Cellulitis, Arthritis Patient Disposition: Home, Self-Care Instructions: Cellulitis (DC), Osteoarthritis (ED) Additional Instructions: Follow up with your primary care provider and an orthopedic provider. Return to the emergency department immediately if your symptoms worsen or if you develop any dizziness, shortness of breath, difficulty breathing, chest pain, blurry vision, loss of vision, nausea, vomiting, abdominal pain, fever, chills, back pain, or any other complaints. Michael un seguimiento con us proveedor de atenci?n primaria y un proveedor ortop?dico. Regrese al departamento de emergencias inmediatamente si nando s?ntomas empeoran o si presenta mareos, dificultad para respirar, dificultad para respirar, dolor en el pecho, visi?n borrosa, p?rdida de la visi?n, n?useas, v?mitos, dolor abdominal, fiebre, escalofr?os, dolor de espalda o cualquier otras quejas. Prescriptions: New prednisone 20 mg tablet 20 mg PO DAILY 7 Days Qty: 7 0RF cephalexin 500 mg capsule 500 mg PO Q6H 7 Days Qty: 28 0RF naproxen 500 mg tablet 500 mg PO BID 7 Days Qty: 14 0RF No Action labetalol 200 mg tablet 2 tab PO BID methadone [Methadone Intensol] 10 mg/mL Concentrate 55 mg PO DAILY cyclobenzaprine 10 mg tablet 1 tab PO TID PRN (Reason: Muscle Spasm) albuterol sulfate [ProAir HFA] 90 mcg/actuation HFA aerosol inhaler 2 puff PO QID PRN (Reason: Shortness Of Breath) prednisone 20 mg tablet 40 mg PO DAILY Qty: 10 0RF prednisone 20 mg tablet 40 mg PO DAILY Qty: 10 0RF azithromycin [Zithromax Z-Stanley] 250 mg tablet See Rx Instructions .ROUTE .COMPLEX Qty: 6 0RF Rx Instructions: take 500 mg today (day 1), then 250 mg for 4 days (days 2-5) albuterol sulfate 90 mcg/actuation HFA aerosol inhaler 1 inh inhalation QID PRN (Reason: shortness of breath or wheezing) Qty: 6.7 0RF (DME) nebulizer accessories Kit See Rx Instructions .Route Qty: 1 0RF Rx Instructions: As directed (DME) nebulizers [AeroEclipse II Nebulizer] Misc See Rx Instructions .Route Qty: 1 0RF Rx Instructions: As directed albuterol sulfate 1.25 mg/3 mL solution for nebulization 1.25 mg inhalation QID PRN (Reason: shortness of breath or wheezing) Qty: 75 0RF prednisone 50 mg tablet 50 mg PO DAILY 4 Days Qty: 4 0RF labetalol 200 mg tablet 200 mg PO BID 30 Days Qty: 60 0RF cyclobenzaprine 10 mg tablet 10 mg PO Q8H Qty: 20 0RF tramadol 50 mg tablet 50 mg PO Q6H PRN (Reason: pain) Qty: 20 0RF prednisone 20 mg tablet 60 mg PO DAILY Qty: 12 0RF Rx Instructions: start prednisone tomorrow medroxyprogesterone [Provera] 10 mg tablet 10 mg PO DAILY Qty: 30 0RF cyclobenzaprine 10 mg tablet 10 mg PO TID PRN (Reason: muscle spasm) Qty: 14 0RF ferrous sulfate 325 mg (65 mg iron) tablet 325 mg PO DAILY Qty: 14 0RF polyethylene glycol 3350 [Miralax] 17 gram/dose powder 17 g PO DAILY PRN (Reason: constipation) Qty: 119 0RF clindamycin HCl 300 mg capsule 300 mg PO Q8H Qty: 30 0RF prednisone 20 mg tablet 60 mg PO DAILY Qty: 12 0RF ibuprofen 800 mg tablet 800 mg PO Q8H PRN (Reason: pain) Qty: 20 0RF Referrals: [facility] [place] Family Medicine [Provider Group] (Call to establish and follow up with a primary care provider. If you already have a primary care provider, please follow up with them. Llame para establecer y realizar un seguimiento con un proveedor de atenci?n primaria. Si ya tiene un proveedor de atenci?n primaria, michael un seguimiento con ?l.) [facility] [place] Primary [facility] [Provider Group] (Call to establish and follow up with a primary care provider. If you already have a primary care provider, please follow up with them. Llame para establecer y realizar un seguimiento con un proveedor de atenci?n primaria. Si ya tiene un proveedor de atenci?n primaria, michael un seguimiento con ?l.) [facility] [place] Primary [facility] [Provider Group] (Call to establish and follow up with a primary care provider. If you already have a primary care provider, please follow up with them. Llame para establecer y realizar un seguimiento con un proveedor de atenci?n primaria. Si ya tiene un proveedor de atenci?n primaria, michael un seguimiento con ?l.) [facility] [place] [facility] [place] Group] (Call to establish and follow up with an orthopedic provider. Llame para establecer y realizar un seguimiento con un proveedor ortop?dico. ) Interventions: ED Discharge Assessment Last Done: 04/04/23 01:11 Discharge Date/Time: 04/04/23 01:12 Print Language: Mongolian
[2023-04-04 01:07] VITALS: BP 149/96; PULSE 77; RESP 18; TEMP 36.3; O2SAT 97
== END 2023-04-04 01:12 | disposition home or self-care (01) ==
PROVIDERS: Physician Assistant Medical; Emergency Provider Internal Medicine
DX: L03.114 Cellulitis of left upper limb (principal); M19.042 Primary osteoarthritis, left hand; M79.642 Pain in left hand; Z20.822 Contact with and (suspected) exposure to COVID-19; Z20.828 Contact with and (suspected) exposure to other viral communicable diseases; I10 Essential (primary) hypertension; F11.20 Opioid dependence, uncomplicated; F17.210 Nicotine dependence, cigarettes, uncomplicated; Z79.899 Other long term (current) drug therapy
CPT/HCPCS: 0241U; 73130; 80053; 83735; 84484; 85025; 93005; 99283; 99284

== ENCOUNTER → 2023-04-03 23:25 | Outpatient (BNV) | payer MEDICAID, SELFPAY | PROVIDERS: Emergency Provider Internal Medicine; Visit Provider Internal Medicine Cardiovascular Disease | DX: R07.9 Chest pain, unspecified (principal) | CPT/HCPCS: 93010 ==

== ENCOUNTER 2023-04-10 14:47 | Emergency (ER) | payer MEDICAID, SELFPAY ==
--- NOTE | ~2023-04-10 | XR_ITS ---
EXAMINATION: XR LUMBOSACRAL SPINE CLINICAL INFORMATION: Low back pain. COMPARISON: 05/13/2022 TECHNIQUE: Three views of the lumbosacral spine. FINDINGS: There are 5 nonrib-bearing lumbar vertebral bodies. 4 mm anterolisthesis of L3 on L4. 2 mm retrolisthesis of L5 on S1. Vertebral body heights are maintained. Mild intervertebral disc space narrowing L3-L4. Multilevel facet hypertrophy. Sacroiliac joints are intact. XR/XR lumbar spine 2-3V IMPRESSION: No acute abnormality.
[2023-04-10 15:10] VITALS: BP 170/75; PULSE 81; RESP 20; TEMP 36.6; O2SAT 100; BMI 46.9
--- NOTE | 2023-04-10 15:11 | ED.GENADULT ---
HPI - General Adult General Chief complaint: Back Pain/Injury Stated complaint: Lower back pain/bilateral leg pain Time Seen by Provider: 04/10/23 16:16 Source: patient, RN notes reviewed and old records reviewed Mode of arrival: ambulatory History of Present Illness HPI narrative: 43-year-old female with a past medical history opiate dependence, asthma, HTN, presenting to the ED complaining of acute on chronic bilateral low back pain radiating down bilateral LE x5 months. Admits was previously diagnosed with herniated/pinched disc, however was lost to follow-up. Denies recent injury/trauma or fall. Reports pain worse with movement. Also reports suprapubic discomfort/dysuria at the end of urinating. Denies fever/chills, weakness, incontinence/retention Related Data Home Medications Medication Instructions Recorded Confirmed albuterol sulfate 90 mcg/actuation 2 puff PO QID PRN Shortness Of 12/28/20 12/28/20 aerosol inhaler (ProAir HFA) Breath cyclobenzaprine 10 mg tablet 1 tab PO TID PRN Muscle Spasm 12/28/20 12/28/20 labetalol 200 mg tablet 2 tab PO BID 12/28/20 12/28/20 methadone 10 mg/mL oral 55 mg PO DAILY 12/28/20 12/28/20 concentrate (Methadone Intensol) Previous Rx's Medication Instructions Recorded prednisone 20 mg tablet 40 mg (2 x 20 mg) PO DAILY #10 tabs 12/31/20 prednisone 20 mg tablet 60 mg (3 x 20 mg) PO DAILY #12 tabs 02/11/21 cyclobenzaprine 10 mg tablet 10 mg PO TID PRN muscle spasm #14 06/29/21 tabs ferrous sulfate 325 mg (65 mg 325 mg PO DAILY #14 tabs 06/29/21 iron) tablet medroxyprogesterone 10 mg tablet 10 mg PO DAILY #30 tabs 06/29/21 (Provera) polyethylene glycol 3350 17 17 g PO DAILY PRN constipation 06/29/21 gram/dose oral powder (Miralax) #119 grams albuterol sulfate 1.25 mg/3 mL 1.25 mg (3 mL) inhalation QID PRN 01/07/22 solution for nebulization shortness of breath or wheezing #75 mL albuterol sulfate 90 mcg/actuation 1 inh inhalation QID PRN shortness 01/07/22 aerosol inhaler of breath or wheezing #6.7 grams azithromycin 250 mg tablet See Rx Instructions PO .COMPLEX #6 01/07/22 (Zithromax Z-Stanley) tabs nebulizer accessories #1 ea 01/07/22 nebulizers (AeroEclipse II #1 ea 01/07/22 Nebulizer) prednisone 20 mg tablet 40 mg (2 x 20 mg) PO DAILY #10 tabs 01/07/22 labetalol 200 mg tablet 200 mg PO BID 30 days #60 tabs 04/10/22 prednisone 50 mg tablet 50 mg PO DAILY 4 days #4 tabs 04/10/22 cyclobenzaprine 10 mg tablet 10 mg PO Q8H #20 tabs 05/13/22 tramadol 50 mg tablet 50 mg PO Q6H PRN pain #20 tabs 05/13/22 clindamycin HCl 300 mg capsule 300 mg PO Q8H #30 caps 10/21/22 ibuprofen 800 mg tablet 800 mg PO Q8H PRN pain #20 tabs 10/21/22 prednisone 20 mg tablet 60 mg (3 x 20 mg) PO DAILY #12 tabs 10/21/22 cephalexin 500 mg capsule 500 mg PO Q6H 7 days #28 caps 04/04/23 naproxen 500 mg tablet 500 mg PO BID 7 days #14 tabs 04/04/23 prednisone 20 mg tablet 20 mg PO DAILY 7 days #7 tabs 04/04/23 acetaminophen 500 mg tablet 500 mg PO Q6H PRN fever or pain 04/10/23 (Tylenol Extra Strength) #14 tabs cyclobenzaprine 5 mg tablet 5 mg PO Q8H PRN pain (scale score 04/10/23 7-10) 5 days #14 tabs lidocaine 5 % topical patch 1 patch topical DAILY PRN pain #30 04/10/23 (Lidoderm) ea naproxen 500 mg tablet 500 mg PO BID PRN pain 10 days #20 04/10/23 tabs phenazopyridine 200 mg tablet 200 mg PO TID PRN pain 6 doses #6 04/10/23 (Pyridium) tabs Allergies Allergy/AdvReac Type Severity Reaction Status Date / Time morphine [MORPHINE] Allergy Unknown SHORTNESS Verified 04/10/23 15:15 OF BREATH Penicillins [PENICILLINS] Allergy Unknown RASH Verified 04/10/23 15:15 Review of Systems Review of Systems: Constitutional: No Fever, No Chills ENT/Mouth: No Ear Pain, No Nasal Congestion, No sore throat, No Rhinorrhea, No Swallowing Difficulty Cardiovascular: No Chest Pain, No SOB Respiratory: No Cough Gastrointestinal: No Nausea, No Vomiting, No Diarrhea, No Constipation, +suprapubic abdominal pain Genitourinary: +Dysuria, No Urinary Frequency, No Hematuria, No Urinary Incontinence/retention, No Urgency, No Flank Pain Musculoskeletal: +joint pain, No Myalgias, No Joint Swelling Skin: No Skin Lesions, No rash Neuro: No Weakness, No Numbness, No Paresthesias Yes all other systems are reviewed and are negative Constitutional: Constitutional: Reports as per HPI Neurologic: Denies Abnormal speech present PMFSH Past Medical History Attestation statement: The following information was validated with the patient. Source: old records reviewed Onset Date is defined in the Problem List Problems that require an onset date and time if occurred within 24 hrs of arrival to the ED Aortic Dissection and Rupture; Neurologic impairment; Cardiopulmonary Arrest; Endotracheal Intubation; Insertion or Replacement of Mechanical Circulatory Assist Device Medical History Abnormal uterine bleeding COVID-19 Rhinovirus Left hip pain Asthma exacerbation Acute respiratory failure with hypoxia Opioid dependence Asthma Hypertension History of ovarian cyst Surgical History No significant past surgical history Social History Social History Household Members: Children Housing: Other Do you presently have visiting nurse or other home services: No Alcohol intake: never Patient Tobacco Use Status: Current everyday Tobacco user Tobacco use type: Cigarette Cigarette Packs Per Day: 0.5 Cigarettes Per Day: 10.0 Advance Directives: Yes Advance Directives on File: Yes Advance Directives Date on File: 12/28/20 service: No Current occupational status: unemployed Physical Exam ED Vital Signs: Vital Signs - 24 hr 04/10/23 15:10 Temperature 97.9 F Pulse Rate 81 Respiratory Rate 20 Blood Pressure 170/75 H Pulse Oximetry 100 Oxygen Delivery Method Room Air BMI result Body Mass Index 46.9 Const General: cooperative, healthy appearing and no acute distress Orientation/consciousness: patient oriented x3 Limitations: no limitations HENMT Head: Yes normal to inspection and Yes atraumatic Ears: hearing grossly normal bilaterally General nose exam: Normal external nose present Face and sinus: Yes normal facial exam Eyes General: appearance normal, both eyes and all related structures EOM: EOMs intact bilaterally Neck Neck: Yes normal visual inspection and Yes no meningeal signs Resp Effort & Inspection: normal respiratory effort and no respiratory distress Cardio Rate: regular rate GI Inspection: Yes normal to inspection Palpation (GI): Soft to palpation, nontender, no guarding and not rigid General: Yes no CVA tenderness Back/Spine/Pelvis Other: No midline cervical/thoracic/lumbar spinous tenderness/step-off or deformity. + bilateral MSK lumbar tenderness to palpation Back: no CVA tenderness Skin Rashes: no rashes Wounds: no wounds Neuro Other: Strength intact throughout. No saddle anesthesia. Sensation intact to light touch. Neurovascular intact distally General: patient oriented x3, gait normal, tone normal, moves all extremities, no meningeal signs and no focal motor deficits Cranial nerves: Yes CN's II-XII intact bilaterally Cognition (Neuro): normal cognition Speech: No Abnormal speech present Gait exam (Neuro): Normal gait present Motor exam (neuro): 5/5 motor strength present throughout Extrem General: Yes normal to inspection Course Course Course Narrative: RME performed by Berenice Smith PA-C. Patient is a 43 year old assigned female at presenting to the emergency department with low back pain x 5 months. Detailed physical exam and review of systems are deferred to the director information security. Labs, imaging, and swabs ordered. Patient placed back in the waiting room pending room availability and results. -labs reassuring. UA not infected. -COVID/flu/RSV negative XR lumbar spine 2-3V IMPRESSION: No acute abnormality. Results discussed with patient including worrisome signs and symptoms and strict return precautions, and when to return to the emergency department. They verbalized understanding and feel safe for discharge at this time. Medications Administered Discontinued Medications Generic Name Dose Route Start Last Admin Trade Name Freq PRN Reason Stop Dose Admin Cyclobenzaprine HCl 10 mg 04/10/23 16:34 04/10/23 16:40 Cyclobenzaprine Hcl 10 Mg Tablet PO 04/10/23 16:35 10 mg ONCE ONE Administration Ketorolac Tromethamine 30 mg 04/10/23 16:34 04/10/23 16:40 Ketorolac Tromethamine 30 Mg/Ml Vial IM 04/10/23 16:35 30 mg ONCE ONE Administration Lidocaine 1 patch 04/10/23 16:34 04/10/23 16:40 Lidocaine 4 % Patch Adh..Patch TRANSDERMA 04/10/23 16:35 1 patch ONCE ONE Administration Protocol Medical Decision Making Medical Decision Making [facility] Narrative: 43-year-old female with a past medical history opiate dependence, asthma, HTN, presenting to the ED complaining of acute on chronic bilateral low back pain radiating down bilateral LE x5 months. On exam vital signs stable, NAD, nontoxic appearing, no midline spinous tenderness or or red flag symptoms. Ambulating with steady gait. Abdomen soft/nontender. Concern for acute on chronic back pain/herniated disc vs spasming. Rule out UTI. Lower suspicion for pyelo/renal stone, cauda equina/cord compression or appendicitis, ovarian torsion Plan: Labs, UA, viral studies, x-ray, pain control Please refer to course for remaining clinical decision making, interpretation of labs/imaging results, and discussions with consultants and/or family members. Differential Diagnosis Differential Diagnoses: The differential diagnosis associated with the presentation includes As above Admission/Observation Consideration of admission/observation: Escalation of care including admission/observation considered Lab Data [facility] Lab Attestation statement: I reviewed the patient's lab results. 04/10/23 15:46 04/10/23 15:46 Labs: Lab Results 04/10/23 04/10/23 04/10/23 Range/Units 15:46 15:47 16:20 WBC 10.3 (4.8-10.8) X10*3/uL RBC 3.76 L (4.20-5.50) X10*6/uL Hgb 11.9 L (12.0-16.0) g/dl Hct 35.7 L (37.0-47.0) % MCV 94.9 (80.0-98.0) fL MCH 31.6 (27.0-33.0) pg MCHC 33.3 (31.0-35.0) g/dl RDW 13.0 (11.0-16.0) % Plt Count 218 (160-400) X10*3/uL MPV 11.0 (9.4-12.3) fL Immature Gran % (Auto) 0.2 (0.0-0.4) % Neut % (Auto) 46.4 (45-73) % Lymph % (Auto) 41.1 H (20-40) % Dickson % (Auto) 7.9 (2-11) % Eos % (Auto) 3.7 (0-4) % Baso % (Auto) 0.7 (0-2) % Lymph # (Auto) 4.2 (1.2-4.9) X10*3/uL Dickson # (Auto) 0.8 (0.1-1.2) X10*3/uL Eos # (Auto) 0.4 (0.0-0.4) X10*3/uL Baso # (Auto) 0.1 (0.0-0.2) X10*3/uL Abs Immat Gran (auto) 0.02 (0.00-0.03) X10*3/uL Absolute Neuts (auto) 4.8 (2.0-8.3) x10*3/uL Absolute Nucleated RBC 0.000 (0.0-0.012) X10*3/uL Nucleated RBC % (auto) 0.0 (0.0-0.2) /100WBC ESR 12 (0-20) MM/HR Sodium 140 (135-145) mmol/L Potassium 4.1 (3.3-5.1) mmol/L Chloride 105 (96-108) mmol/L Carbon Dioxide 28 (22-29) mmol/L Anion Gap 11 L (12-20) BUN 17 H (9-16) mg/dL Creatinine 0.79 (0.5-1.4) mg/dL Estim Creat Clear Calc 126.2 Estimated GFR > 60 Random Glucose 108 (60-115) mg/dL Calcium 9.6 (8.4-10.2) mg/dL Magnesium 1.8 (1.6-2.6) mg/dL Total Bilirubin 0.4 (0.0-1.0) mg/dL AST 16 (5-31) U/L ALT 18 (0-31) U/L Alkaline Phosphatase 40 (39-117) U/L C-Reactive Protein 0.53 H (< or = 0.50) mg/dL Total Protein 7.1 (6.5-8.0) g/dL Albumin 4.0 (3.5-5.0) g/dL Beta HCG, Quant < 2 mIU/mL Urine Color Yellow Urine Appearance Clear Urine pH 6.0 (5.0-9.0) Ur Specific [place] >= 1.030 H (1.005-1.025) Urine Protein 30 (1+) H (Neg-Trace) mg/dL Urine Glucose (UA) Negative (Negative) mg/dL Urine Ketones Trace (Negative) mg/dL Urine Blood Negative (Negative) Urine Nitrite Negative (Negative) Ur Leukocyte Esterase Negative (Negative) Urine RBC 0-2 (0-2) /HPF Urine WBC 0-5 (0-5) /HPF Ur Squamous Epith Cells 0-2 (0-2) /HPF Urine Bacteria None Seen (None Seen) Hyaline Casts 0-2 (0-2) /LPF Influenza Type A (PCR) NEGATIVE (Negative) Influenza Type B (PCR) NEGATIVE (Negative) RSV RNA Qual (PCR) NEGATIVE (Negative) SARS-CoV-2 RNA (RT-PCR) NEGATIVE (Negative) Independent Interpretation I performed an independent interpretation of an: Plain X-Ray Radiology Impression Discussion of test interpretation with radiology: I have reviewed the radiologist's reading. External Record Review External record reviewed: Inpatient record, Office record, Outpatient record, Prior outpatient labs, Prior outpatient radiology, Primary care record and Outside ED record Tests considered The following testing was considered but not selected: As above Prescription Management I considered prescription management with: Pain Medication Discharge Plan Discharge Clinical Impression: Lumbar radiculopathy, Dysuria Patient Disposition: Home, Self-Care Instructions: Lumbar Radiculopathy (ED), Dysuria (ED) Additional Instructions: Your blood work and urine were reassuring. You tested negative for COVID, flu, RSV Your x-ray is unremarkable pyridium will help with urinary discomfort Flexeril is a muscle relaxer, take at night as it makes you drowsy, do not drive, drink alcohol, or operate machinery while taking it Naproxen as an anti-inflammatory / pain medication, take with food Lidoderm patches are numbing patches, apply to painful area In addition take Tylenol at home If symptoms persist or worsen, pain becomes unbearable, you developed urinary retention or incontinence, or weakness return to the ED Prescriptions: New phenazopyridine [Pyridium] 200 mg tablet 200 mg PO TID PRN (Reason: pain) Qty: 6 0RF acetaminophen [Tylenol Extra Strength] 500 mg tablet 500 mg PO Q6H PRN (Reason: fever or pain) Qty: 14 0RF lidocaine [Lidoderm] 5 % adhesive patch,medicated 1 patch topical DAILY MDD remove after 12 hours PRN (Reason: pain) Qty: 30 0RF Rx Instructions: leave on most painful area for up to 12 hrs naproxen 500 mg tablet 500 mg PO BID PRN (Reason: pain) 10 Days Qty: 20 0RF cyclobenzaprine 5 mg tablet 5 mg PO Q8H PRN (Reason: pain (scale score 7-10)) 5 Days Qty: 14 0RF No Action labetalol 200 mg tablet 2 tab PO BID methadone [Methadone Intensol] 10 mg/mL Concentrate 55 mg PO DAILY cyclobenzaprine 10 mg tablet 1 tab PO TID PRN (Reason: Muscle Spasm) albuterol sulfate [ProAir HFA] 90 mcg/actuation HFA aerosol inhaler 2 puff PO QID PRN (Reason: Shortness Of Breath) prednisone 20 mg tablet 40 mg PO DAILY Qty: 10 0RF prednisone 20 mg tablet 40 mg PO DAILY Qty: 10 0RF azithromycin [Zithromax Z-Stanley] 250 mg tablet See Rx Instructions .ROUTE .COMPLEX Qty: 6 0RF Rx Instructions: take 500 mg today (day 1), then 250 mg for 4 days (days 2-5) albuterol sulfate 90 mcg/actuation HFA aerosol inhaler 1 inh inhalation QID PRN (Reason: shortness of breath or wheezing) Qty: 6.7 0RF (DME) nebulizer accessories Kit See Rx Instructions .Route Qty: 1 0RF Rx Instructions: As directed (DME) nebulizers [AeroEclipse II Nebulizer] [facility] [place] See Rx Instructions .Route Qty: 1 0RF Rx Instructions: As directed albuterol sulfate 1.25 mg/3 mL solution for nebulization 1.25 mg inhalation QID PRN (Reason: shortness of breath or wheezing) Qty: 75 0RF prednisone 50 mg tablet 50 mg PO DAILY 4 Days Qty: 4 0RF labetalol 200 mg tablet 200 mg PO BID 30 Days Qty: 60 0RF cyclobenzaprine 10 mg tablet 10 mg PO Q8H Qty: 20 0RF tramadol 50 mg tablet 50 mg PO Q6H PRN (Reason: pain) Qty: 20 0RF prednisone 20 mg tablet 60 mg PO DAILY Qty: 12 0RF Rx Instructions: start prednisone tomorrow medroxyprogesterone [Provera] 10 mg tablet 10 mg PO DAILY Qty: 30 0RF cyclobenzaprine 10 mg tablet 10 mg PO TID PRN (Reason: muscle spasm) Qty: 14 0RF ferrous sulfate 325 mg (65 mg iron) tablet 325 mg PO DAILY Qty: 14 0RF polyethylene glycol 3350 [Miralax] 17 gram/dose powder 17 g PO DAILY PRN (Reason: constipation) Qty: 119 0RF clindamycin HCl 300 mg capsule 300 mg PO Q8H Qty: 30 0RF prednisone 20 mg tablet 60 mg PO DAILY Qty: 12 0RF ibuprofen 800 mg tablet 800 mg PO Q8H PRN (Reason: pain) Qty: 20 0RF prednisone 20 mg tablet 20 mg PO DAILY 7 Days Qty: 7 0RF cephalexin 500 mg capsule 500 mg PO Q6H 7 Days Qty: 28 0RF naproxen 500 mg tablet 500 mg PO BID 7 Days Qty: 14 0RF Referrals: [facility] [place] [facility] [Provider Group] Physician,None [Primary Care Provider] -
[2023-04-10 16:16] LABS: Alanine Aminotransferase 18 U/L (0-31); Alkaline Phosphatase 40 U/L (39-117); Anion Gap 11 (12-20); Aspartate Amino Transferase 16 U/L (5-31); Bilirubin Total 0.4 mg/dL (0.0-1.0); Blood Urea Nitrogen 17 mg/dL (9-16); C Reactive Protein 0.53 mg/dL (< or = 0.50); Calcium 9.6 mg/dL (8.4-10.2); Carbon Dioxide 28 mmol/L (22-29); Chloride 105 mmol/L (96-108); Creatinine Clr Calc Pharmacy 126.2; Estimated Glomerular Filt Rate > 60; Glucose Random 108 mg/dL (60-115); Magnesium 1.8 mg/dL (1.6-2.6); Potassium 4.1 mmol/L (3.3-5.1); Sodium 140 mmol/L (135-145); Total Protein 7.1 g/dL (6.5-8.0)
[2023-04-10 16:18] LABS: HCG Quantitative < 2 mIU/mL
[2023-04-10 16:27] LABS: Appearance Urine Clear; Color Urine Yellow; Glucose Urine UA Negative (Negative); Leukocyte Esterase Urine Negative (Negative); Nitrite Urine Negative (Negative); Specific Gravity - Urine >= 1.030 (1.005-1.025); UMIC TRIGGER UACC YES; Urine Blood Negative (Negative); Urine Ketones Trace mg/dL (Negative); Urine Protein 30 (1+) mg/dL (Neg-Trace)
[2023-04-10 16:30] LABS: Bacteria Urine None Seen (None Seen); Hyaline Casts Urine 0-2 /LPF (0-2); Squamous Epithelial Cell Urine 0-2 /HPF (0-2); WBC Urine 0-5 /HPF (0-5)
[2023-04-10 16:38] LABS: RBC Urine 0-2 /HPF (0-2)
[2023-04-10] MEDS: Ketorolac Tromethamine 30 MG/ML VIAL IM (16:40)
[2023-04-10] MEDS: Lidocaine 4 % Patch ADH..PATCH 1 PATCH TRANSDERMA (16:40)
[2023-04-10] MEDS: Cyclobenzaprine HCl 10 MG TABLET PO (16:40)
[2023-04-10 16:46] LABS: Influenza A PCR NEGATIVE (Negative); Influenza B PCR NEGATIVE (Negative); Resp Syncy Virus RNA Qual PCR NEGATIVE (Negative); SARS COV2 PCR INHOUSE NEGATIVE (Negative)
[2023-04-10 17:34] LABS: Erythrocyte Sedimentation Rate 12 MM/HR (0-20)
== END 2023-04-10 18:45 | disposition home or self-care (01) ==
PROVIDERS: Physician Assistant Medical; Emergency Provider Emergency Medicine
DX: M54.16 Radiculopathy, lumbar region (principal); R30.0 Dysuria; M54.50 Low back pain, unspecified; M79.605 Pain in left leg; M79.604 Pain in right leg; Z79.899 Other long term (current) drug therapy; Z20.822 Contact with and (suspected) exposure to COVID-19; Z20.828 Contact with and (suspected) exposure to other viral communicable diseases
CPT/HCPCS: 0241U; 72100; 80053; 81001; 83735; 84702; 85025; 85652; 86140; 96372; 99283; 99284; J1885

== ENCOUNTER 2023-05-13 23:47 | Emergency (ER) | payer MEDICAID, SELFPAY ==
--- NOTE | ~2023-05-13 | XR_ITS ---
EXAMINATION: XR CHEST CLINICAL INFORMATION: Cough. COMPARISON: 09/06/2022. TECHNIQUE: Frontal view of the chest was obtained. FINDINGS: No significant abnormality is noted involving the heart, lungs, mediastinum, bony thorax or soft tissues. XR/XR chest 1V IMPRESSION: Unremarkable examination.
[2023-05-14 00:01] VITALS: BP 165/86; PULSE 83; RESP 22; TEMP 36.8; O2SAT 94; BMI 49.1
--- NOTE | 2023-05-14 00:30 | ED.URI ---
HPI - URI/Sore Throat General Chief Complaint: Upper Respiratory Symptoms Stated Complaint: flu like symptoms Time Seen by Provider: 05/14/23 00:22 Source: patient Mode of arrival: ambulatory Limitations: no limitations History of Present Illness HPI Narrative: 43-year-old female with a history of asthma presents to the ER with complaints of cough, nasal congestion, subjective fevers and chills, body aches for 2 days. Patient reports her children are sick at home with similar symptoms. She denies shortness of breath, chest pain, leg swelling, leg pain, abdominal pain, vomiting or diarrhea or skin rash or neck pain or neck stiffness Related Data Home Medications Medication Instructions Recorded Confirmed albuterol sulfate 90 mcg/actuation 2 puff PO QID PRN Shortness Of 12/28/20 12/28/20 aerosol inhaler (ProAir HFA) Breath cyclobenzaprine 10 mg tablet 1 tab PO TID PRN Muscle Spasm 12/28/20 12/28/20 labetalol 200 mg tablet 2 tab PO BID 12/28/20 12/28/20 methadone 10 mg/mL oral 55 mg PO DAILY 12/28/20 12/28/20 concentrate (Methadone Intensol) Previous Rx's Medication Instructions Recorded prednisone 20 mg tablet 40 mg (2 x 20 mg) PO DAILY #10 tabs 12/31/20 prednisone 20 mg tablet 60 mg (3 x 20 mg) PO DAILY #12 tabs 02/11/21 cyclobenzaprine 10 mg tablet 10 mg PO TID PRN muscle spasm #14 06/29/21 tabs ferrous sulfate 325 mg (65 mg 325 mg PO DAILY #14 tabs 06/29/21 iron) tablet medroxyprogesterone 10 mg tablet 10 mg PO DAILY #30 tabs 06/29/21 (Provera) polyethylene glycol 3350 17 17 g PO DAILY PRN constipation 06/29/21 gram/dose oral powder (Miralax) #119 grams albuterol sulfate 1.25 mg/3 mL 1.25 mg (3 mL) inhalation QID PRN 01/07/22 solution for nebulization shortness of breath or wheezing #75 mL albuterol sulfate 90 mcg/actuation 1 inh inhalation QID PRN shortness 01/07/22 aerosol inhaler of breath or wheezing #6.7 grams azithromycin 250 mg tablet See Rx Instructions PO .COMPLEX #6 01/07/22 (Zithromax Z-Stanley) tabs nebulizer accessories #1 ea 01/07/22 nebulizers (AeroEclipse II #1 ea 01/07/22 Nebulizer) prednisone 20 mg tablet 40 mg (2 x 20 mg) PO DAILY #10 tabs 01/07/22 labetalol 200 mg tablet 200 mg PO BID 30 days #60 tabs 04/10/22 prednisone 50 mg tablet 50 mg PO DAILY 4 days #4 tabs 04/10/22 cyclobenzaprine 10 mg tablet 10 mg PO Q8H #20 tabs 05/13/22 tramadol 50 mg tablet 50 mg PO Q6H PRN pain #20 tabs 05/13/22 clindamycin HCl 300 mg capsule 300 mg PO Q8H #30 caps 10/21/22 ibuprofen 800 mg tablet 800 mg PO Q8H PRN pain #20 tabs 10/21/22 prednisone 20 mg tablet 60 mg (3 x 20 mg) PO DAILY #12 tabs 10/21/22 cephalexin 500 mg capsule 500 mg PO Q6H 7 days #28 caps 04/04/23 naproxen 500 mg tablet 500 mg PO BID 7 days #14 tabs 04/04/23 prednisone 20 mg tablet 20 mg PO DAILY 7 days #7 tabs 04/04/23 acetaminophen 500 mg tablet 500 mg PO Q6H PRN fever or pain 04/10/23 (Tylenol Extra Strength) #14 tabs cyclobenzaprine 5 mg tablet 5 mg PO Q8H PRN pain (scale score 04/10/23 7-10) 5 days #14 tabs lidocaine 5 % topical patch 1 patch topical DAILY PRN pain #30 04/10/23 (Lidoderm) ea naproxen 500 mg tablet 500 mg PO BID PRN pain 10 days #20 04/10/23 tabs phenazopyridine 200 mg tablet 200 mg PO TID PRN pain 6 doses #6 04/10/23 (Pyridium) tabs albuterol sulfate 90 mcg/actuation 2 inh inhalation Q4H PRN shortness 05/14/23 breath activated powder inhaler of breath or wheezing #1 ea Allergies Allergy/AdvReac Type Severity Reaction Status Date / Time morphine [MORPHINE] Allergy Unknown SHORTNESS Verified 05/14/23 00:01 OF BREATH Penicillins [PENICILLINS] Allergy Unknown RASH Verified 05/14/23 00:01 Review of Systems Review of Systems: Yes all other systems are reviewed and are negative Constitutional: Constitutional: Reports no additional constitutional complaints, Reports body ache(s), Reports chills, Reports fever(s), Denies headache(s) and Denies weakness Eyes: Eyes: Reports no additional eye complaints and Denies change in vision ENT: Reports system reviewed and no additional complaints, except as documented, Denies dizziness, Denies headache(s), Reports nasal congestion, Denies nasal discharge and Denies neck pain Cardiovascular: Cardiovascular: Reports no additional cardiovascular complaints, Denies chest pain, Denies leg edema and Denies dyspnea Respiratory: Respiratory: Reports no additional respiratory complaints, Reports cough and Denies dyspnea Gastrointestinal: Gastrointestinal: Reports no additional gastrointestinal complaints, Denies abdominal pain, Denies diarrhea, Denies nausea and Denies vomiting Genitourinary: Genitourinary: Reports no additional female genitourinary complaints and Denies urinary incontinence Musculoskeletal: Musculoskeletal: Reports no additional musculoskeletal complaints, Denies back pain, Denies arthralgias, Denies joint swelling, Denies neck pain, Denies numbness and Denies tingling Integumentary/Breasts: Skin/Breast: Reports system reviewed and no additional complaints, except as docu and Denies rash Neurologic: Reports system reviewed and no additional complaints, except as documented, Denies Abnormal speech present, Denies dizziness, Denies headache(s), Denies numbness, Denies tingling and Denies weakness PMFSH Past Medical History Attestation statement: The following information was validated with the patient. Source: old records reviewed and nursing notes reviewed Medical History Abnormal uterine bleeding COVID-19 Rhinovirus Left hip pain Asthma exacerbation Acute respiratory failure with hypoxia Opioid dependence Asthma Hypertension History of ovarian cyst Surgical History No significant past surgical history Social History Social History Household Members: Children Housing: Other Do you presently have visiting nurse or other home services: No Alcohol intake: never Patient Tobacco Use Status: Current everyday Tobacco user Tobacco use type: Cigarette Cigarette Packs Per Day: 0.5 Cigarettes Per Day: 10.0 Advance Directives: Yes Advance Directives on File: Yes Advance Directives Date on File: 12/28/20 service: No Current occupational status: unemployed Physical Exam Vital Signs: Vital Signs: Last Vital Signs Temp 98.2 F 05/14/23 00:01 Pulse 80 05/14/23 01:13 Resp 20 05/14/23 01:13 BP 165/86 H 05/14/23 00:01 Pulse Ox 94 05/14/23 00:01 O2 Del Method Room Air 05/14/23 00:01 BMI result Body Mass Index 49.1 Const: General: cooperative, healthy appearing, comfortable and no acute distress Orientation/consciousness: patient oriented x3 Limitations: no limitations HEENT: Head: Yes normal to inspection Ears: hearing grossly normal bilaterally and TM's normal bilaterally General nose exam: Normal external nose present Face and sinus: Yes normal facial exam Mouth: Normal oral and palatal mucosa present Throat: Yes posterior oropharynx normal, Yes tonsils normal and Yes uvula midline Eyes: General: appearance normal, both eyes and all related structures Pupils: Equal, round and reactive pupils present Neck: Neck: Yes normal visual inspection, Yes full ROM, Yes no lymphadenopathy and Yes no meningeal signs Chest: Chest palpation & inspection: normal inspection of the chest Resp: Effort & Inspection: normal respiratory effort Auscultation: clear to auscultation bilaterally Cardio: Rate: regular rate Rhythm: regular rhythm Peripheral pulses: Peripheral pulses 2+ throughout GI: Inspection: Yes normal to inspection Palpation (GI): Soft to palpation and nontender Auscultation: normal bowel sounds Back/Spine/Pelvis: Thoracic/Lumbar Spine: thoracic and lumbar spine normal to inspection Skin: General skin exam: no rashes or lesions noted Neuro: General: patient oriented x3, no meningeal signs, no focal motor deficits and normal sensation to monofilament Cranial nerves: Yes Equal, round and reactive pupils present Cognition (Neuro): normal cognition Speech: No Abnormal speech present Gait exam (Neuro): Normal gait present Motor exam (neuro): 5/5 motor strength present throughout Extrem: General: Yes normal to inspection, Yes no pedal edema and Yes no calf tenderness Course Course Course Narrative: COVID screen is positive. No hypoxia or tachypnea. Patient is well-appearing. Patient be discharged home with recommendations for supportive care. Reviewed worrisome signs and symptoms of when to return to the emergency room. Comfortable plan for discharge home Medications Administered Discontinued Medications Generic Name Dose Route Start Last Admin Trade Name Aleyda PRN Reason Stop Dose Admin Albuterol Sulfate 2 puff 05/14/23 00:27 05/14/23 01:12 Albuterol Sulfate 90 Mcg 8 Gm Inhaler INHALE 05/14/23 00:28 2 puff ONCE ONE Administration Medical Decision Making Medical Decision Making [facility] Narrative: 43-year-old female with a history of asthma presents to the ER with complaints of cough, nasal congestion, subjective fevers and chills, body aches for 2 days. Patient reports her children are sick at home with similar symptoms. She denies shortness of breath, chest pain, leg swelling, leg pain, abdominal pain, vomiting or diarrhea or skin rash or neck pain or neck stiffness Vitals are stable. Lungs are clear. Exam is benign Will send viral testing Review chest x-ray ordered from triage Differential Diagnosis Differential Diagnoses: The differential diagnosis associated with the presentation includes Viral syndrome, influenza Admission/Observation Consideration of admission/observation: Escalation of care including admission/observation considered COVID screen positive. No hypoxia requiring supplemental oxygen and or admission Lab Data [facility] Lab Attestation statement: I reviewed the patient's lab results. Labs: Lab Results 05/14/23 Range/Units 00:41 COVID-19 (PACO) Positive A (Negative) COVID-19 Clin Com See Note Influenza Type A (YVETTE) Negative (Negative) Influenza Type B (YVETTE) Negative (Negative) Influenza A & B Note See Note Independent Interpretation I performed an independent interpretation of an: Plain X-Ray Interpretation: I independently reviewed the x-ray and agree with the radiology report Radiology Impression Discussion of test interpretation with radiology: I have reviewed the radiologist's reading. Radiologist Impression: [address] [address] XRay Report Signed Patient: Mary Shaffer MR#: [id number] : 1980 Acct:[id number] Age/Sex: 43 / F ADM Date: 05/14/23 Loc: .ED Attending Dr: Ordering Physician: Lukasz Hannah MD Date of Service: 05/14/23 Procedure(s): XR chest 1V Accession Number(s): [id number] cc: Lukasz Hannah MD; Physician,None ~ EXAMINATION: XR CHEST CLINICAL INFORMATION: Cough. COMPARISON: 09/06/2022. TECHNIQUE: Frontal view of the chest was obtained. FINDINGS: No significant abnormality is noted involving the heart, lungs, mediastinum, bony thorax or soft tissues. XR/XR chest 1V IMPRESSION: Unremarkable examination. Tests considered The following testing was considered but not selected: Low concern for PE requiring CTA Prescription Management I considered prescription management with: Pain Medication, Antiviral and Antibiotic Discharge Plan Discharge Clinical Impression: COVID Patient Disposition: Home, Self-Care Instructions: COVID-19 (Coronavirus Disease 2019) (ED) Additional Instructions: Quarantine for 5 days and mask for an additional 5 more days Alternate Motrin and Tylenol for any pain or fever as needed Your x-ray shows no signs of infection. Use inhaler 2 puffs every 4 hours as needed for any cough or wheezing Return for any worsening symptoms. Prescriptions: New albuterol sulfate 90 mcg/actuation aerosol powdr breath activated 2 inh inhalation Q4H PRN (Reason: shortness of breath or wheezing) Qty: 1 0RF No Action labetalol 200 mg tablet 2 tab PO BID methadone [Methadone Intensol] 10 mg/mL Concentrate 55 mg PO DAILY cyclobenzaprine 10 mg tablet 1 tab PO TID PRN (Reason: Muscle Spasm) albuterol sulfate [ProAir HFA] 90 mcg/actuation HFA aerosol inhaler 2 puff PO QID PRN (Reason: Shortness Of Breath) prednisone 20 mg tablet 40 mg PO DAILY Qty: 10 0RF prednisone 20 mg tablet 40 mg PO DAILY Qty: 10 0RF azithromycin [Zithromax Z-Stanley] 250 mg tablet See Rx Instructions .ROUTE .COMPLEX Qty: 6 0RF Rx Instructions: take 500 mg today (day 1), then 250 mg for 4 days (days 2-5) albuterol sulfate 90 mcg/actuation HFA aerosol inhaler 1 inh inhalation QID PRN (Reason: shortness of breath or wheezing) Qty: 6.7 0RF (DME) nebulizer accessories Kit See Rx Instructions .Route Qty: 1 0RF Rx Instructions: As directed (DME) nebulizers [AeroEclipse II Nebulizer] Misc See Rx Instructions .Route Qty: 1 0RF Rx Instructions: As directed albuterol sulfate 1.25 mg/3 mL solution for nebulization 1.25 mg inhalation QID PRN (Reason: shortness of breath or wheezing) Qty: 75 0RF prednisone 50 mg tablet 50 mg PO DAILY 4 Days Qty: 4 0RF labetalol 200 mg tablet 200 mg PO BID 30 Days Qty: 60 0RF cyclobenzaprine 10 mg tablet 10 mg PO Q8H Qty: 20 0RF tramadol 50 mg tablet 50 mg PO Q6H PRN (Reason: pain) Qty: 20 0RF prednisone 20 mg tablet 60 mg PO DAILY Qty: 12 0RF Rx Instructions: start prednisone tomorrow medroxyprogesterone [Provera] 10 mg tablet 10 mg PO DAILY Qty: 30 0RF cyclobenzaprine 10 mg tablet 10 mg PO TID PRN (Reason: muscle spasm) Qty: 14 0RF ferrous sulfate 325 mg (65 mg iron) tablet 325 mg PO DAILY Qty: 14 0RF polyethylene glycol 3350 [Miralax] 17 gram/dose powder 17 g PO DAILY PRN (Reason: constipation) Qty: 119 0RF clindamycin HCl 300 mg capsule 300 mg PO Q8H Qty: 30 0RF prednisone 20 mg tablet 60 mg PO DAILY Qty: 12 0RF ibuprofen 800 mg tablet 800 mg PO Q8H PRN (Reason: pain) Qty: 20 0RF prednisone 20 mg tablet 20 mg PO DAILY 7 Days Qty: 7 0RF cephalexin 500 mg capsule 500 mg PO Q6H 7 Days Qty: 28 0RF naproxen 500 mg tablet 500 mg PO BID 7 Days Qty: 14 0RF phenazopyridine [Pyridium] 200 mg tablet 200 mg PO TID PRN (Reason: pain) Qty: 6 0RF acetaminophen [Tylenol Extra Strength] 500 mg tablet 500 mg PO Q6H PRN (Reason: fever or pain) Qty: 14 0RF lidocaine [Lidoderm] 5 % adhesive patch,medicated 1 patch topical DAILY MDD remove after 12 hours PRN (Reason: pain) Qty: 30 0RF Rx Instructions: leave on most painful area for up to 12 hrs naproxen 500 mg tablet 500 mg PO BID PRN (Reason: pain) 10 Days Qty: 20 0RF cyclobenzaprine 5 mg tablet 5 mg PO Q8H PRN (Reason: pain (scale score 7-10)) 5 Days Qty: 14 0RF Referrals: Physician,Unknown J [Physician] - 1 week
[2023-05-14 01:05] LABS: COVID-19 Test Positive (Negative); IDNOW Serial# 08D9AD1C
[2023-05-14 01:11] LABS: IDNOW Serial# 08D9AD1C; Influenza A Negative (Negative); Influenza B2 Negative (Negative)
[2023-05-14] MEDS: Albuterol Sulfate 90 MCG 8 GM INHALER 2 PUFF INHALE (01:12)
[2023-05-14 01:13] VITALS: PULSE 80; RESP 20; O2SAT 95
[2023-05-14 01:45] VITALS: BP 142/68; PULSE 88; RESP 18; TEMP 37; O2SAT 98
== END 2023-05-14 01:47 | disposition home or self-care (01) ==
PROVIDERS: Nurse Practitioner Family; Emergency Provider Emergency Medicine
DX: U07.1 COVID-19 (principal); R05.9 Cough, unspecified; R50.9 Fever, unspecified; R09.81 Nasal congestion
CPT/HCPCS: 71045; 87502; 87635; 94640; 99283; 99285

== ENCOUNTER 2023-05-28 04:45 | Emergency (ER) | payer MEDICAID, SELFPAY ==
--- NOTE | ~2023-05-28 | XR_ITS ---
EXAMINATION: XR CHEST CLINICAL INFORMATION: Chest tightness. Cough. COMPARISON: 05/14/2023. TECHNIQUE: Frontal view of the chest was obtained. FINDINGS: The lung volumes are low. The cardiomediastinal silhouette is within normal limits and stable. There is no focal lung consolidation or pleural effusion. The bony structures and soft tissues are unremarkable. XR/XR chest 1V IMPRESSION: Low lung volumes. No acute cardiopulmonary process.
[2023-05-28 04:52] VITALS: BP 166/85; PULSE 81; RESP 18; TEMP 37; O2SAT 95; BMI 48.3
--- NOTE | 2023-05-28 04:59 | ECG_ITS ---
Test Reason : CHEST PX/ ASTHMA Blood Pressure : / mmHG Vent. Rate : 076 BPM Atrial Rate : 076 BPM P-R Int : 184 ms QRS Dur : 104 ms QT Int : 402 ms P-R-T Axes : 036 046 026 degrees QTc Int : 452 ms Normal sinus rhythm Normal ECG When compared with ECG of 03-APR-2023 23:40, No significant change was found Referred By: Generic ED Physician Electronically Signed By:ARTIS GILLIAM MD
--- NOTE | 2023-05-28 05:09 | PC.NURSE ---
Pt reports she woke up and was gasping for air. SOB and chest tightness. Pt reports she has been in the hospital before and told that sh has stopped breathing in her sleep but no formal diagnosis of sleep apnea. Pt was also in this ED a couple of weeks ago diagnosed with Covid and all of her family has been sick. Oxygen is currently 98% on room air, RR 22. EKG being done at this time.
[2023-05-28 05:14] VITALS: BP 142/84; PULSE 79; RESP 16; O2SAT 97; O2SAT 98
[2023-05-28 05:48] LABS: MANUAL DIFF FLAG NO
[2023-05-28 05:49] LABS: Basophils Absolute Auto 0.1 X10*3/uL (0.0-0.2); Basophils Percent Auto 0.9 % (0-2); Eosinophils Absolute Auto 0.3 X10*3/uL (0.0-0.4); Eosinophils Percent Auto 3.4 % (0-4); Hematocrit 34.4 % (37.0-47.0); Hemoglobin 11.5 g/dl (12.0-16.0); Imm Gran Abs Auto 0.01 X10*3/uL (0.00-0.03); Imm Gran Pct Auto 0.1 % (0.0-0.4); Lymphocytes Absolute Auto 3.3 X10*3/uL (1.2-4.9); Lymphocytes Percent Auto 37.4 % (20-40); Mean Corpuscular HGB Conc 33.4 g/dl (31.0-35.0); Mean Corpuscular Hemoglobin 31.5 pg (27.0-33.0); Mean Corpuscular Volume 94.2 fL (80.0-98.0); Mean Platelet Volume 10.6 fL (9.4-12.3); Monocytes Absolute Auto 0.8 X10*3/uL (0.1-1.2); Neutrophils Absolute Auto 4.3 x10*3/uL (2.0-8.3); Neutrophils Percent Auto 49.2 % (45-73); Platelet Count 262 X10*3/uL (160-400); Red Blood Count 3.65 X10*6/uL (4.20-5.50); Red Cell Distribution Width 12.4 % (11.0-16.0); White Blood Count 8.7 X10*3/uL (4.8-10.8)
[2023-05-28 06:02] LABS: Alanine Aminotransferase 21 U/L (0-31); Albumin Level 3.7 g/dL (3.5-5.0); Alkaline Phosphatase 37 U/L (39-117); Anion Gap 11 (12-20); Aspartate Amino Transferase 20 U/L (5-31); Bilirubin Total 0.2 mg/dL (0.0-1.0); Blood Urea Nitrogen 11 mg/dL (9-16); Calcium 8.9 mg/dL (8.4-10.2); Carbon Dioxide 25 mmol/L (22-29); Chloride 107 mmol/L (96-108); Creatinine Clr Calc Pharmacy 135.4; Estimated Glomerular Filt Rate > 60; Glucose Random 150 mg/dL (60-115); Potassium 3.7 mmol/L (3.3-5.1); Sodium 139 mmol/L (135-145); Total Protein 6.8 g/dL (6.5-8.0)
[2023-05-28 06:09] LABS: Troponin-I High Sensitivity < 2.7 ng/L (<3.5-17.0)
[2023-05-28 06:26] LABS: Influenza A PCR NEGATIVE (Negative); Influenza B PCR NEGATIVE (Negative); Resp Syncy Virus RNA Qual PCR NEGATIVE (Negative); SARS COV2 PCR INHOUSE NEGATIVE (Negative)
[2023-05-28 06:40] VITALS: BP 142/84; PULSE 79; RESP 16; O2SAT 95
[2023-05-28] MEDS: predniSONE 20 MG TABLET 60 MG PO (07:25)
[2023-05-28 07:27] VITALS: BP 134/82; PULSE 76; RESP 16; TEMP 36.6; O2SAT 97
--- NOTE | 2023-05-28 07:30 | ED.URI ---
HPI - URI/Sore Throat General Chief Complaint: Upper Respiratory Symptoms Stated Complaint: Chest tightness from asthma Time Seen by Provider: 05/28/23 06:38 Source: patient Mode of arrival: ambulatory Limitations: no limitations History of Present Illness HPI Narrative: 43-year-old female with a history of asthma and hypertension presents to the ER with complaints of cough and wheezing as well as sore throat for the last 2 days. Patient denies any chest pain, shortness of breath, fevers, chills, leg swelling, leg pain, abdominal pain, vomiting, diarrhea, neck pain, neck stiffness. She reports her children at home both influenza and COVID. She did have COVID herself a week ago. She ran out of her albuterol and nebulizer machine at home. Related Data Home Medications Medication Instructions Recorded Confirmed albuterol sulfate 90 mcg/actuation 2 puff PO QID PRN Shortness Of 12/28/20 12/28/20 aerosol inhaler (ProAir HFA) Breath cyclobenzaprine 10 mg tablet 1 tab PO TID PRN Muscle Spasm 12/28/20 12/28/20 labetalol 200 mg tablet 2 tab PO BID 12/28/20 12/28/20 methadone 10 mg/mL oral 55 mg PO DAILY 12/28/20 12/28/20 concentrate (Methadone Intensol) Previous Rx's Medication Instructions Recorded prednisone 20 mg tablet 40 mg (2 x 20 mg) PO DAILY #10 tabs 12/31/20 prednisone 20 mg tablet 60 mg (3 x 20 mg) PO DAILY #12 tabs 02/11/21 cyclobenzaprine 10 mg tablet 10 mg PO TID PRN muscle spasm #14 06/29/21 tabs ferrous sulfate 325 mg (65 mg 325 mg PO DAILY #14 tabs 06/29/21 iron) tablet medroxyprogesterone 10 mg tablet 10 mg PO DAILY #30 tabs 06/29/21 (Provera) polyethylene glycol 3350 17 17 g PO DAILY PRN constipation 06/29/21 gram/dose oral powder (Miralax) #119 grams albuterol sulfate 1.25 mg/3 mL 1.25 mg (3 mL) inhalation QID PRN 01/07/22 solution for nebulization shortness of breath or wheezing #75 mL albuterol sulfate 90 mcg/actuation 1 inh inhalation QID PRN shortness 01/07/22 aerosol inhaler of breath or wheezing #6.7 grams azithromycin 250 mg tablet See Rx Instructions PO .COMPLEX #6 01/07/22 (Zithromax Z-Stanley) tabs nebulizer accessories #1 ea 01/07/22 nebulizers (AeroEclipse II #1 ea 01/07/22 Nebulizer) prednisone 20 mg tablet 40 mg (2 x 20 mg) PO DAILY #10 tabs 01/07/22 labetalol 200 mg tablet 200 mg PO BID 30 days #60 tabs 04/10/22 prednisone 50 mg tablet 50 mg PO DAILY 4 days #4 tabs 04/10/22 cyclobenzaprine 10 mg tablet 10 mg PO Q8H #20 tabs 05/13/22 tramadol 50 mg tablet 50 mg PO Q6H PRN pain #20 tabs 05/13/22 clindamycin HCl 300 mg capsule 300 mg PO Q8H #30 caps 10/21/22 ibuprofen 800 mg tablet 800 mg PO Q8H PRN pain #20 tabs 10/21/22 prednisone 20 mg tablet 60 mg (3 x 20 mg) PO DAILY #12 tabs 10/21/22 cephalexin 500 mg capsule 500 mg PO Q6H 7 days #28 caps 04/04/23 naproxen 500 mg tablet 500 mg PO BID 7 days #14 tabs 04/04/23 prednisone 20 mg tablet 20 mg PO DAILY 7 days #7 tabs 04/04/23 acetaminophen 500 mg tablet 500 mg PO Q6H PRN fever or pain 04/10/23 (Tylenol Extra Strength) #14 tabs cyclobenzaprine 5 mg tablet 5 mg PO Q8H PRN pain (scale score 04/10/23 7-10) 5 days #14 tabs lidocaine 5 % topical patch 1 patch topical DAILY PRN pain #30 04/10/23 (Lidoderm) ea naproxen 500 mg tablet 500 mg PO BID PRN pain 10 days #20 04/10/23 tabs phenazopyridine 200 mg tablet 200 mg PO TID PRN pain 6 doses #6 04/10/23 (Pyridium) tabs albuterol sulfate 90 mcg/actuation 2 inh inhalation Q4H PRN shortness 05/14/23 breath activated powder inhaler of breath or wheezing #1 ea albuterol sulfate 2.5 mg/0.5 mL 2.5 mg (0.5 mL) inhalation Q4H PRN 05/28/23 solution for nebulization shortness of breath or wheezing #30 ea albuterol sulfate 90 mcg/actuation 2 inh inhalation Q4H PRN shortness 05/28/23 breath activated powder inhaler of breath or wheezing #1 ea prednisone 20 mg tablet 40 mg (2 x 20 mg) PO DAILY #8 tabs 05/28/23 Allergies Allergy/AdvReac Type Severity Reaction Status Date / Time morphine [MORPHINE] Allergy Unknown SHORTNESS Verified 05/28/23 04:51 OF BREATH Penicillins [PENICILLINS] Allergy Unknown RASH Verified 05/28/23 04:51 Review of Systems Review of Systems: Yes all other systems are reviewed and are negative Constitutional: Constitutional: Reports no additional constitutional complaints, Denies body ache(s), Denies chills, Denies fever(s), Denies headache(s) and Denies weakness Eyes: Eyes: Reports no additional eye complaints and Denies change in vision ENT: Reports system reviewed and no additional complaints, except as documented, Denies dizziness, Denies headache(s), Denies nasal congestion, Denies nasal discharge and Denies neck pain Cardiovascular: Cardiovascular: Reports no additional cardiovascular complaints, Denies chest pain, Denies leg edema and Denies dyspnea Respiratory: Respiratory: Reports no additional respiratory complaints, Reports cough, Denies dyspnea and Reports wheezing Gastrointestinal: Gastrointestinal: Reports no additional gastrointestinal complaints, Denies abdominal pain, Denies diarrhea, Denies nausea and Denies vomiting Genitourinary: Genitourinary: Reports no additional female genitourinary complaints and Denies urinary incontinence Musculoskeletal: Musculoskeletal: Reports no additional musculoskeletal complaints, Denies back pain, Denies arthralgias, Denies joint swelling, Denies neck pain, Denies numbness and Denies tingling Integumentary/Breasts: Skin/Breast: Reports system reviewed and no additional complaints, except as docu and Denies rash Neurologic: Reports system reviewed and no additional complaints, except as documented, Denies Abnormal speech present, Denies dizziness, Denies headache(s), Denies numbness, Denies tingling and Denies weakness Allergic/Immunologic: Allergic/Immunologic: Reports wheezing PMFSH Past Medical History Attestation statement: The following information was validated with the patient. Source: old records reviewed and nursing notes reviewed Medical History Abnormal uterine bleeding COVID-19 Rhinovirus Left hip pain Asthma exacerbation Acute respiratory failure with hypoxia Opioid dependence Asthma Hypertension History of ovarian cyst Surgical History No significant past surgical history Social History Social History Household Members: Children Housing: Other Do you presently have visiting nurse or other home services: No Alcohol intake: never Patient Tobacco Use Status: Current everyday Tobacco user Tobacco use type: Cigarette Cigarette Packs Per Day: 0.5 Cigarettes Per Day: 10.0 Smoked in Last 30 Days: Yes Use of substances other than those prescribed or required for medical reasons: No Advance Directives: Yes Advance Directives on File: Yes Advance Directives Date on File: 12/28/20 Patient : No service: No Current occupational status: unemployed Physical Exam Vital Signs: Vital Signs: Last Vital Signs Temp 97.8 F 05/28/23 07:27 Pulse 66 05/28/23 07:32 Resp 18 05/28/23 07:32 BP 134/82 05/28/23 07:27 Pulse Ox 97 05/28/23 07:27 O2 Del Method Room Air 05/28/23 07:27 BMI result Body Mass Index 48.3 Const: General: cooperative, healthy appearing, comfortable and no acute distress Orientation/consciousness: patient oriented x3 Limitations: no limitations HEENT: Head: Yes normal to inspection Ears: hearing grossly normal bilaterally and TM's normal bilaterally General nose exam: Normal external nose present Face and sinus: Yes normal facial exam Mouth: Normal oral and palatal mucosa present Throat: Yes posterior oropharynx normal, Yes tonsils normal and Yes uvula midline Eyes: General: appearance normal, both eyes and all related structures Pupils: Equal, round and reactive pupils present Neck: Neck: Yes normal visual inspection, Yes full ROM, Yes no lymphadenopathy and Yes no meningeal signs Chest: Chest palpation & inspection: normal inspection of the chest Resp: Effort & Inspection: normal respiratory effort Auscultation: wheezes Cardio: Rate: regular rate Rhythm: regular rhythm Peripheral pulses: Peripheral pulses 2+ throughout GI: Inspection: Yes normal to inspection Palpation (GI): Soft to palpation and nontender Auscultation: normal bowel sounds Back/Spine/Pelvis: Thoracic/Lumbar Spine: thoracic and lumbar spine normal to inspection Skin: General skin exam: no rashes or lesions noted Neuro: General: patient oriented x3, no meningeal signs, no focal motor deficits and normal sensation to monofilament Cranial nerves: Yes Equal, round and reactive pupils present Cognition (Neuro): normal cognition Speech: No Abnormal speech present Gait exam (Neuro): Normal gait present Motor exam (neuro): 5/5 motor strength present throughout Extrem: General: Yes normal to inspection, Yes no pedal edema and Yes no calf tenderness Course Course Course Narrative: Patient feels improved after bronchodilator and p.o. prednisone. Patient be discharged home with prednisone course and refills for her albuterol. Reviewed worrisome signs and symptoms with the patient and when to return to the emergency room. Comfortable plan for discharge home Medications Administered Discontinued Medications Generic Name Dose Route Start Last Admin Trade Name Freq PRN Reason Stop Dose Admin Albuterol/Ipratropium 3 ml 05/28/23 07:27 05/28/23 07:31 Albuterol/Iprat 2.5/0.5mg 3 Ml Ampul.Neb INHALE 05/28/23 07:28 3 ml ONCE ONE Administration Prednisone 60 mg 05/28/23 07:15 05/28/23 07:25 Prednisone 20 Mg Tablet PO 05/28/23 07:16 60 mg ONCE ONE Administration Medical Decision Making Medical Decision Making MDM Narrative: 43-year-old female with a history of asthma and hypertension presents to the ER with complaints of cough and wheezing as well as sore throat for the last 2 days. Patient denies any chest pain, shortness of breath, fevers, chills, leg swelling, leg pain, abdominal pain, vomiting, diarrhea, neck pain, neck stiffness. She reports her children at home both influenza and COVID. She did have COVID herself a week ago. She ran out of her albuterol and nebulizer machine at home. Vitals are stable. Wheezing on exam. Will send labs, EKG, chest x-ray, viral testing Will give bronchodilator, p.o. prednisone Differential Diagnosis Differential Diagnoses: The differential diagnosis associated with the presentation includes Asthma exacerbation, viral syndrome Low suspicion for PE, pneumonia, ACS Admission/Observation Consideration of admission/observation: Escalation of care including admission/observation considered History of present illness is not typical for ACS requiring admission Lab Data MDM Lab Attestation statement: I reviewed the patient's lab results. 05/28/23 05:43 05/28/23 05:43 Labs: Lab Results 05/28/23 Range/Units 05:43 WBC 8.7 (4.8-10.8) X10*3/uL RBC 3.65 L (4.20-5.50) X10*6/uL Hgb 11.5 L (12.0-16.0) g/dl Hct 34.4 L (37.0-47.0) % MCV 94.2 (80.0-98.0) fL MCH 31.5 (27.0-33.0) pg MCHC 33.4 (31.0-35.0) g/dl RDW 12.4 (11.0-16.0) % Plt Count 262 (160-400) X10*3/uL MPV 10.6 (9.4-12.3) fL Immature Gran % (Auto) 0.1 (0.0-0.4) % Neut % (Auto) 49.2 (45-73) % Lymph % (Auto) 37.4 (20-40) % [place] % (Auto) 9.0 (2-11) % Eos % (Auto) 3.4 (0-4) % Baso % (Auto) 0.9 (0-2) % Lymph # (Auto) 3.3 (1.2-4.9) X10*3/uL [place] # (Auto) 0.8 (0.1-1.2) X10*3/uL Eos # (Auto) 0.3 (0.0-0.4) X10*3/uL Baso # (Auto) 0.1 (0.0-0.2) X10*3/uL Abs Immat Gran (auto) 0.01 (0.00-0.03) X10*3/uL Absolute Neuts (auto) 4.3 (2.0-8.3) x10*3/uL Absolute Nucleated RBC 0.000 (0.0-0.012) X10*3/uL Nucleated RBC % (auto) 0.0 (0.0-0.2) /100WBC Sodium 139 (135-145) mmol/L Potassium 3.7 (3.3-5.1) mmol/L Chloride 107 (96-108) mmol/L Carbon Dioxide 25 (22-29) mmol/L Anion Gap 11 L (12-20) BUN 11 (9-16) mg/dL Creatinine 0.75 (0.5-1.4) mg/dL Estim Creat Clear Calc 135.4 Estimated GFR > 60 Random Glucose 150 H (60-115) mg/dL Calcium 8.9 D (8.4-10.2) mg/dL Total Bilirubin 0.2 (0.0-1.0) mg/dL AST 20 (5-31) U/L ALT 21 (0-31) U/L Alkaline Phosphatase 37 L (39-117) U/L Troponin I High Sens < 2.7 (<3.5-17.0) ng/L Total Protein 6.8 (6.5-8.0) g/dL Albumin 3.7 (3.5-5.0) g/dL Influenza Type A (PCR) NEGATIVE (Negative) Influenza Type B (PCR) NEGATIVE (Negative) RSV RNA Qual (PCR) NEGATIVE (Negative) SARS-CoV-2 RNA (RT-PCR) NEGATIVE (Negative) Independent Interpretation I performed an independent interpretation of an: EKG and Plain X-Ray Interpretation: I independently reviewed the EKG which shows normal sinus rhythm with a rate of 76, normal DE, normal QRS, normal QT I independently reviewed the chest x-ray and agree with the radiology report Radiology Impression Discussion of test interpretation with radiology: I have reviewed the radiologist's reading. Tests considered The following testing was considered but not selected: Low suspicion for PE requiring D-dimer and CT-see discussion above Prescription Management I considered prescription management with: Antibiotic Chronic Conditions Patient?s care impacted by: Hypertension and Other (As) Discharge Plan Discharge Clinical Impression: Viral infection, Asthma exacerbation Patient Disposition: Home, Self-Care Instructions: Asthma (ED), Viral Syndrome (ED) Additional Instructions: Your testing for flu, COVID, RSV are negative Your lab work, EKG and chest x-ray are normal Take your next dose of prednisone tomorrow Take Motrin or Tylenol for any pain or fever as needed Continue your albuterol Prescriptions: New prednisone 20 mg tablet 40 mg PO DAILY Qty: 8 0RF albuterol sulfate 2.5 mg/0.5 mL solution for nebulization 2.5 mg inhalation Q4H PRN (Reason: shortness of breath or wheezing) Qty: 30 0RF Rx Instructions: for up to 3 doses albuterol sulfate 90 mcg/actuation aerosol powdr breath activated 2 inh inhalation Q4H PRN (Reason: shortness of breath or wheezing) Qty: 1 0RF No Action labetalol 200 mg tablet 2 tab PO BID methadone [Methadone Intensol] 10 mg/mL Concentrate 55 mg PO DAILY cyclobenzaprine 10 mg tablet 1 tab PO TID PRN (Reason: Muscle Spasm) albuterol sulfate [ProAir HFA] 90 mcg/actuation HFA aerosol inhaler 2 puff PO QID PRN (Reason: Shortness Of Breath) prednisone 20 mg tablet 40 mg PO DAILY Qty: 10 0RF prednisone 20 mg tablet 40 mg PO DAILY Qty: 10 0RF azithromycin [Zithromax Z-Stanley] 250 mg tablet See Rx Instructions .ROUTE .COMPLEX Qty: 6 0RF Rx Instructions: take 500 mg today (day 1), then 250 mg for 4 days (days 2-5) albuterol sulfate 90 mcg/actuation HFA aerosol inhaler 1 inh inhalation QID PRN (Reason: shortness of breath or wheezing) Qty: 6.7 0RF (DME) nebulizer accessories Kit See Rx Instructions .Route Qty: 1 0RF Rx Instructions: As directed (DME) nebulizers [AeroEclipse II Nebulizer] [facility] See Rx Instructions .Route Qty: 1 0RF Rx Instructions: As directed albuterol sulfate 1.25 mg/3 mL solution for nebulization 1.25 mg inhalation QID PRN (Reason: shortness of breath or wheezing) Qty: 75 0RF prednisone 50 mg tablet 50 mg PO DAILY 4 Days Qty: 4 0RF labetalol 200 mg tablet 200 mg PO BID 30 Days Qty: 60 0RF cyclobenzaprine 10 mg tablet 10 mg PO Q8H Qty: 20 0RF tramadol 50 mg tablet 50 mg PO Q6H PRN (Reason: pain) Qty: 20 0RF prednisone 20 mg tablet 60 mg PO DAILY Qty: 12 0RF Rx Instructions: start prednisone tomorrow medroxyprogesterone [Provera] 10 mg tablet 10 mg PO DAILY Qty: 30 0RF cyclobenzaprine 10 mg tablet 10 mg PO TID PRN (Reason: muscle spasm) Qty: 14 0RF ferrous sulfate 325 mg (65 mg iron) tablet 325 mg PO DAILY Qty: 14 0RF polyethylene glycol 3350 [Miralax] 17 gram/dose powder 17 g PO DAILY PRN (Reason: constipation) Qty: 119 0RF clindamycin HCl 300 mg capsule 300 mg PO Q8H Qty: 30 0RF prednisone 20 mg tablet 60 mg PO DAILY Qty: 12 0RF ibuprofen 800 mg tablet 800 mg PO Q8H PRN (Reason: pain) Qty: 20 0RF prednisone 20 mg tablet 20 mg PO DAILY 7 Days Qty: 7 0RF cephalexin 500 mg capsule 500 mg PO Q6H 7 Days Qty: 28 0RF naproxen 500 mg tablet 500 mg PO BID 7 Days Qty: 14 0RF albuterol sulfate 90 mcg/actuation aerosol powdr breath activated 2 inh inhalation Q4H PRN (Reason: shortness of breath or wheezing) Qty: 1 0RF phenazopyridine [Pyridium] 200 mg tablet 200 mg PO TID PRN (Reason: pain) Qty: 6 0RF acetaminophen [Tylenol Extra Strength] 500 mg tablet 500 mg PO Q6H PRN (Reason: fever or pain) Qty: 14 0RF lidocaine [Lidoderm] 5 % adhesive patch,medicated 1 patch topical DAILY MDD remove after 12 hours PRN (Reason: pain) Qty: 30 0RF Rx Instructions: leave on most painful area for up to 12 hrs naproxen 500 mg tablet 500 mg PO BID PRN (Reason: pain) 10 Days Qty: 20 0RF cyclobenzaprine 5 mg tablet 5 mg PO Q8H PRN (Reason: pain (scale score 7-10)) 5 Days Qty: 14 0RF Referrals: Physician,None [Primary Care Provider] - 1 week Interventions: ED Discharge Assessment Last Done: 05/28/23 07:42
[2023-05-28] MEDS: Albuterol/Iprat 2.5/0.5MG 3 ML AMPUL.NEB INHALE (07:31)
[2023-05-28 07:32] VITALS: PULSE 66; RESP 18; O2SAT 96
== END 2023-05-28 07:49 | disposition home or self-care (01) ==
PROVIDERS: Emergency Provider Emergency Medicine
DX: B34.9 Viral infection, unspecified (principal); J45.901 Unspecified asthma with (acute) exacerbation; R07.89 Other chest pain; I10 Essential (primary) hypertension; F17.210 Nicotine dependence, cigarettes, uncomplicated; Z11.52 Encounter for screening for COVID-19; Z20.822 Contact with and (suspected) exposure to COVID-19; Z79.899 Other long term (current) drug therapy
CPT/HCPCS: 0241U; 36415; 71045; 80053; 84484; 85025; 93005; 94640; 99284; 99285

== ENCOUNTER → 2023-05-28 04:59 | Outpatient (BNV) | payer MEDICAID, SELFPAY | PROVIDERS: Emergency Provider Emergency Medicine; Visit Provider Internal Medicine Cardiovascular Disease | DX: R07.81 Pleurodynia (principal) | CPT/HCPCS: 93010 ==

== ENCOUNTER 2023-06-21 12:59 | Emergency (ER) | payer MEDICAID, SELFPAY ==
[2023-06-21 13:22] VITALS: BP 138/87; PULSE 73; RESP 18; TEMP 36.6; O2SAT 96; BMI 49.6
--- NOTE | 2023-06-21 13:23 | ED.GENADULT ---
HPI - General Adult General Chief complaint: Back Pain/Injury Stated complaint: Lower back pain/bilateral leg pain Time Seen by Provider: 06/21/23 15:54 Source: patient and RN notes reviewed Mode of arrival: ambulatory Limitations: no limitations History of Present Illness HPI narrative: This is a 43 y/o F, with a hx of chronic back pain, presenting to the ER with complaints of atraumatic back pain x 2 weeks. Pt reports that the back pain has been present for 2 weeks and radiates down her legs bilaterally. She has been taking tylenol without any relief. Denies any recent trauma, heavy lifting, falls. No urinary or bowel incontinence. No saddle anesthesias. Denies fevers, chills, headache, chest pain, abdominal pain, shortness of breath, nausea, vomiting or diarrhea. Denies any urinary symptoms. No other complaints or concerns at this time. MD complaint: back pain Onset (ago): week(s) Location: back Radiation: extremity Severity: moderate Quality: aching Pain Consistency: constant Relieving factors: immobilization Exacerbating factors: movement Associated symptoms: denies other symptoms Treatments prior to arrival: none Related Data Home Medications Medication Instructions Recorded Confirmed albuterol sulfate 90 mcg/actuation 2 puff PO QID PRN Shortness Of 12/28/20 12/28/20 aerosol inhaler (ProAir HFA) Breath cyclobenzaprine 10 mg tablet 1 tab PO TID PRN Muscle Spasm 12/28/20 12/28/20 labetalol 200 mg tablet 2 tab PO BID 12/28/20 12/28/20 methadone 10 mg/mL oral 55 mg PO DAILY 12/28/20 12/28/20 concentrate (Methadone Intensol) Previous Rx's Medication Instructions Recorded prednisone 20 mg tablet 40 mg (2 x 20 mg) PO DAILY #10 tabs 12/31/20 prednisone 20 mg tablet 60 mg (3 x 20 mg) PO DAILY #12 tabs 02/11/21 cyclobenzaprine 10 mg tablet 10 mg PO TID PRN muscle spasm #14 06/29/21 tabs ferrous sulfate 325 mg (65 mg 325 mg PO DAILY #14 tabs 06/29/21 iron) tablet medroxyprogesterone 10 mg tablet 10 mg PO DAILY #30 tabs 06/29/21 (Provera) polyethylene glycol 3350 17 17 g PO DAILY PRN constipation 06/29/21 gram/dose oral powder (Miralax) #119 grams albuterol sulfate 1.25 mg/3 mL 1.25 mg (3 mL) inhalation QID PRN 01/07/22 solution for nebulization shortness of breath or wheezing #75 mL albuterol sulfate 90 mcg/actuation 1 inh inhalation QID PRN shortness 01/07/22 aerosol inhaler of breath or wheezing #6.7 grams azithromycin 250 mg tablet See Rx Instructions PO .COMPLEX #6 01/07/22 (Zithromax Z-Stanley) tabs nebulizer accessories #1 ea 01/07/22 nebulizers (AeroEclipse II #1 ea 01/07/22 Nebulizer) prednisone 20 mg tablet 40 mg (2 x 20 mg) PO DAILY #10 tabs 01/07/22 labetalol 200 mg tablet 200 mg PO BID 30 days #60 tabs 04/10/22 prednisone 50 mg tablet 50 mg PO DAILY 4 days #4 tabs 04/10/22 cyclobenzaprine 10 mg tablet 10 mg PO Q8H #20 tabs 05/13/22 tramadol 50 mg tablet 50 mg PO Q6H PRN pain #20 tabs 05/13/22 clindamycin HCl 300 mg capsule 300 mg PO Q8H #30 caps 10/21/22 ibuprofen 800 mg tablet 800 mg PO Q8H PRN pain #20 tabs 10/21/22 prednisone 20 mg tablet 60 mg (3 x 20 mg) PO DAILY #12 tabs 10/21/22 cephalexin 500 mg capsule 500 mg PO Q6H 7 days #28 caps 04/04/23 naproxen 500 mg tablet 500 mg PO BID 7 days #14 tabs 04/04/23 prednisone 20 mg tablet 20 mg PO DAILY 7 days #7 tabs 04/04/23 acetaminophen 500 mg tablet 500 mg PO Q6H PRN fever or pain 04/10/23 (Tylenol Extra Strength) #14 tabs cyclobenzaprine 5 mg tablet 5 mg PO Q8H PRN pain (scale score 04/10/23 7-10) 5 days #14 tabs lidocaine 5 % topical patch 1 patch topical DAILY PRN pain #30 04/10/23 (Lidoderm) ea naproxen 500 mg tablet 500 mg PO BID PRN pain 10 days #20 04/10/23 tabs phenazopyridine 200 mg tablet 200 mg PO TID PRN pain 6 doses #6 04/10/23 (Pyridium) tabs albuterol sulfate 90 mcg/actuation 2 inh inhalation Q4H PRN shortness 05/14/23 breath activated powder inhaler of breath or wheezing #1 ea albuterol sulfate 2.5 mg/0.5 mL 2.5 mg (0.5 mL) inhalation Q4H PRN 05/28/23 solution for nebulization shortness of breath or wheezing #30 ea albuterol sulfate 90 mcg/actuation 2 inh inhalation Q4H PRN shortness 05/28/23 breath activated powder inhaler of breath or wheezing #1 ea prednisone 20 mg tablet 40 mg (2 x 20 mg) PO DAILY #8 tabs 05/28/23 acetaminophen 500 mg tablet 500 mg PO Q6H PRN pain #30 tabs 06/21/23 (Tylenol Extra Strength) lidocaine 5 % topical patch 1 patch topical DAILY #30 ea 06/21/23 methocarbamol 750 mg tablet 750 mg PO TID 3 days #9 tabs 06/21/23 prednisone 20 mg tablet 40 mg (2 x 20 mg) PO DAILY 5 days 06/21/23 #10 tabs Allergies Allergy/AdvReac Type Severity Reaction Status Date / Time morphine [MORPHINE] Allergy Unknown SHORTNESS Verified 06/21/23 13:26 OF BREATH Penicillins [PENICILLINS] Allergy Unknown RASH Verified 06/21/23 13:26 Review of Systems Review of Systems: Yes all other systems are reviewed and are negative Constitutional: Constitutional: Reports as per [facility] Past Medical History Medical History Abnormal uterine bleeding COVID-19 Rhinovirus Left hip pain Asthma exacerbation Acute respiratory failure with hypoxia Opioid dependence Asthma Hypertension History of ovarian cyst Surgical History No significant past surgical history Social History Social History Household Members: Children Housing: Other Do you presently have visiting nurse or other home services: No Alcohol intake: never Patient Tobacco Use Status: Current everyday Tobacco user Tobacco use type: Cigarette Cigarette Packs Per Day: 0.5 Cigarettes Per Day: 10.0 Advance Directives: Yes Advance Directives on File: Yes Advance Directives Date on File: 12/28/20 service: No Current occupational status: unemployed Physical Exam ED Vital Signs: Vital Signs - 24 hr 06/21/23 13:22 06/21/23 16:22 Temperature 98 F 98.6 F Pulse Rate 73 71 Respiratory Rate 18 20 Blood Pressure 138/87 194/98 H Pulse Oximetry 96 94 Oxygen Delivery Method Room Air Room Air BMI result Body Mass Index 49.6 Const General: cooperative, comfortable and no acute distress Orientation/consciousness: patient oriented x3 Limitations: no limitations HENMT Head: Yes normal to inspection, Yes normocephalic and Yes atraumatic Ears: hearing grossly normal bilaterally General nose exam: Normal external nose present Face and sinus: Yes normal facial exam Mouth: Normal oral and palatal mucosa present, oropharynx normal and moist mucous membranes Throat: Yes posterior oropharynx normal Eyes General: appearance normal, both eyes and all related structures Eyelids: Yes eyelids normal Conjunctivae: conjunctivae normal Sclerae: sclerae normal Pupils: Equal, round and reactive pupils present EOM: EOMs intact bilaterally Neck Neck: Yes normal visual inspection, Yes full ROM and Yes no lymphadenopathy Lymphatic: no lymphadenopathy noted Chest Chest palpation & inspection: normal inspection of the chest Resp Effort & Inspection: normal respiratory effort and able to speak in complete sentences Auscultation: clear to auscultation bilaterally, no crackles, no rales, no rhonchi and no wheezes Cardio Rate: regular rate Rhythm: regular rhythm Heart sounds: S1 normal heart sound present and S2 normal heart sound present GI Inspection: Yes normal to inspection General: Yes no CVA tenderness Back/Spine/Pelvis Other: TTP overlying bilateral lumbar paraspinous muscles. Sensation intact. No overlying skin changes. Patellar reflexes intact. Strength 5/5 in lower extremities.ambulatory with steady gait Back: no CVA tenderness Skin General skin exam: no rashes or lesions noted Trauma: no lacerations or abrasions Wounds: no wounds Neuro General: patient oriented x3 and moves all extremities Cranial nerves: Yes Equal, round and reactive pupils present Extrem General: Yes normal to inspection Right upper extremity: normal to inspection Left upper extremity: normal to inspection Right lower extremity: normal to inspection Left lower extremity: normal to inspection Course Course Course Narrative: This is an RME: Additional HPI, ROS, PE not included below will be deferred to primary provider. This is a [id number]-female, with a past medical history of asthma and hypertension, presenting to the ER with complaints of low back pain and bilateral leg pain x 2 weeks. No trauma or injury. Pain worsens with movement, Pain raidates down BL legs. no urinary symptoms. Plan: Medical Decision Making Medical Decision Making [facility] Narrative: 43 y/o F presenting to the Er with complaints of acute on chronic back pain. No trauma or injury. This patient presents with back pain most consistent with lumbar radiculopathy. Differential diagnoses includes lumbago versus musculoskeletal spasm / strain versus sciatica. No back pain red flags on history or physical. Presentation not consistent with malignancy (lack of history of malignancy, lack of B symptoms), fracture (no trauma, no bony tenderness to palpation), cauda equina (no bowel or urinary incontinence/retention, no saddle anesthesia, no distal weakness), pyelonephritis (afebrile, no CVAT, no urinary symptoms). Given the clinical picture and recent lumbar xray in April, no indication for imaging at this time. Labs were ordered, no acute findings. D/C on prednisoone, muscle relaxants, tylenol. Given return precautions and PCP to f/u with. She understands and agrees with plan, stable for d.c. Differential Diagnosis Differential Diagnoses: The differential diagnosis associated with the presentation includes see above Admission/Observation Consideration of admission/observation: Escalation of care including admission/observation considered Escalation of care including admission/observation considered however given workup today not warranted at this time. Lab Data [facility] Lab Attestation statement: I reviewed the patient's lab results. No leukocytosis, stable H&H, chemistry WNL. 06/21/23 13:45 06/21/23 13:45 Labs: Lab Results 06/21/23 Range/Units 13:45 WBC 8.6 (4.8-10.8) X10*3/uL RBC 3.74 L (4.20-5.50) X10*6/uL Hgb 11.9 L (12.0-16.0) g/dl Hct 35.3 L (37.0-47.0) % MCV 94.4 (80.0-98.0) fL MCH 31.8 (27.0-33.0) pg MCHC 33.7 (31.0-35.0) g/dl RDW 12.4 (11.0-16.0) % Plt Count 246 (160-400) X10*3/uL MPV 10.7 (9.4-12.3) fL Immature Gran % (Auto) 0.1 (0.0-0.4) % Neut % (Auto) 42.3 L (45-73) % Lymph % (Auto) 45.3 H (20-40) % Bledsoe % (Auto) 8.3 (2-11) % Eos % (Auto) 3.2 (0-4) % Baso % (Auto) 0.8 (0-2) % Lymph # (Auto) 3.9 (1.2-4.9) X10*3/uL Bledsoe # (Auto) 0.7 (0.1-1.2) X10*3/uL Eos # (Auto) 0.3 (0.0-0.4) X10*3/uL Baso # (Auto) 0.1 (0.0-0.2) X10*3/uL Abs Immat Gran (auto) 0.01 (0.00-0.03) X10*3/uL Absolute Neuts (auto) 3.6 (2.0-8.3) x10*3/uL Absolute Nucleated RBC 0.000 (0.0-0.012) X10*3/uL Nucleated RBC % (auto) 0.0 (0.0-0.2) /100WBC Sodium 139 (135-145) mmol/L Potassium 4.2 (3.3-5.1) mmol/L Chloride 104 (96-108) mmol/L Carbon Dioxide 29 (22-29) mmol/L Anion Gap 10 L (12-20) BUN 12 (9-16) mg/dL Creatinine 0.72 (0.5-1.4) mg/dL Estim Creat Clear Calc 143.3 Estimated GFR > 60 Random Glucose 100 (60-115) mg/dL Calcium 9.1 (8.4-10.2) mg/dL Total Bilirubin 0.2 (0.0-1.0) mg/dL Direct Bilirubin < 0.2 (0.0-0.5) mg/dL AST 21 (5-31) U/L ALT 25 (0-31) U/L Alkaline Phosphatase 38 L (39-117) U/L B-Natriuretic Peptide 19 (<100) pg/mL Total Protein 7.3 (6.5-8.0) g/dL Albumin 4.1 (3.5-5.0) g/dL Discharge Plan Discharge Clinical Impression: Lumbar radiculopathy Patient Disposition: Home, Self-Care Instructions: Lumbar Radiculopathy (ED), Lower Back Exercises (ED) Additional Instructions: You were seen in the emergency department due to low back pain. Your blood work was reassuring today. Your x-ray from April does reveal some degenerative changes. Methocarbamol is a muscle relaxer, this will help your symptoms, please be advised that this can cause drowsiness, do not drink alcohol or drive while taking this medication. I am also prescribing you prednisone, please take as prescribed. Avoid using naproxen or ibuprofen while taking this medication. Take with food. Lidoderm patches are numbing patches, apply to painful area In addition take Tylenol at home. If symptoms persist or worsen, pain becomes unbearable, you developed urinary retention or incontinence, or weakness return to the ED Follow up with primary care physician. Prescriptions: New prednisone 20 mg tablet 40 mg PO DAILY 5 Days Qty: 10 0RF methocarbamol 750 mg tablet 750 mg PO TID 3 Days Qty: 9 0RF acetaminophen [Tylenol Extra Strength] 500 mg tablet 500 mg PO Q6H PRN (Reason: pain) Qty: 30 0RF lidocaine 5 % adhesive patch,medicated 1 patch topical DAILY Qty: 30 0RF Rx Instructions: leave on most painful area for up to 12 hrs No Action labetalol 200 mg tablet 2 tab PO BID methadone [Methadone Intensol] 10 mg/mL Concentrate 55 mg PO DAILY cyclobenzaprine 10 mg tablet 1 tab PO TID PRN (Reason: Muscle Spasm) albuterol sulfate [ProAir HFA] 90 mcg/actuation HFA aerosol inhaler 2 puff PO QID PRN (Reason: Shortness Of Breath) prednisone 20 mg tablet 40 mg PO DAILY Qty: 10 0RF prednisone 20 mg tablet 40 mg PO DAILY Qty: 10 0RF azithromycin [Zithromax Z-Stanley] 250 mg tablet See Rx Instructions .ROUTE .COMPLEX Qty: 6 0RF Rx Instructions: take 500 mg today (day 1), then 250 mg for 4 days (days 2-5) albuterol sulfate 90 mcg/actuation HFA aerosol inhaler 1 inh inhalation QID PRN (Reason: shortness of breath or wheezing) Qty: 6.7 0RF (DME) nebulizer accessories Kit See Rx Instructions .Route Qty: 1 0RF Rx Instructions: As directed (DME) nebulizers [AeroEclipse II Nebulizer] Misc See Rx Instructions .Route Qty: 1 0RF Rx Instructions: As directed albuterol sulfate 1.25 mg/3 mL solution for nebulization 1.25 mg inhalation QID PRN (Reason: shortness of breath or wheezing) Qty: 75 0RF prednisone 50 mg tablet 50 mg PO DAILY 4 Days Qty: 4 0RF labetalol 200 mg tablet 200 mg PO BID 30 Days Qty: 60 0RF cyclobenzaprine 10 mg tablet 10 mg PO Q8H Qty: 20 0RF tramadol 50 mg tablet 50 mg PO Q6H PRN (Reason: pain) Qty: 20 0RF prednisone 20 mg tablet 60 mg PO DAILY Qty: 12 0RF Rx Instructions: start prednisone tomorrow medroxyprogesterone [Provera] 10 mg tablet 10 mg PO DAILY Qty: 30 0RF cyclobenzaprine 10 mg tablet 10 mg PO TID PRN (Reason: muscle spasm) Qty: 14 0RF ferrous sulfate 325 mg (65 mg iron) tablet 325 mg PO DAILY Qty: 14 0RF polyethylene glycol 3350 [Miralax] 17 gram/dose powder 17 g PO DAILY PRN (Reason: constipation) Qty: 119 0RF clindamycin HCl 300 mg capsule 300 mg PO Q8H Qty: 30 0RF prednisone 20 mg tablet 60 mg PO DAILY Qty: 12 0RF ibuprofen 800 mg tablet 800 mg PO Q8H PRN (Reason: pain) Qty: 20 0RF prednisone 20 mg tablet 20 mg PO DAILY 7 Days Qty: 7 0RF cephalexin 500 mg capsule 500 mg PO Q6H 7 Days Qty: 28 0RF naproxen 500 mg tablet 500 mg PO BID 7 Days Qty: 14 0RF albuterol sulfate 90 mcg/actuation aerosol powdr breath activated 2 inh inhalation Q4H PRN (Reason: shortness of breath or wheezing) Qty: 1 0RF phenazopyridine [Pyridium] 200 mg tablet 200 mg PO TID PRN (Reason: pain) Qty: 6 0RF acetaminophen [Tylenol Extra Strength] 500 mg tablet 500 mg PO Q6H PRN (Reason: fever or pain) Qty: 14 0RF lidocaine [Lidoderm] 5 % adhesive patch,medicated 1 patch topical DAILY MDD remove after 12 hours PRN (Reason: pain) Qty: 30 0RF Rx Instructions: leave on most painful area for up to 12 hrs naproxen 500 mg tablet 500 mg PO BID PRN (Reason: pain) 10 Days Qty: 20 0RF cyclobenzaprine 5 mg tablet 5 mg PO Q8H PRN (Reason: pain (scale score 7-10)) 5 Days Qty: 14 0RF prednisone 20 mg tablet 40 mg PO DAILY Qty: 8 0RF albuterol sulfate 2.5 mg/0.5 mL solution for nebulization 2.5 mg inhalation Q4H PRN (Reason: shortness of breath or wheezing) Qty: 30 0RF Rx Instructions: for up to 3 doses albuterol sulfate 90 mcg/actuation aerosol powdr breath activated 2 inh inhalation Q4H PRN (Reason: shortness of breath or wheezing) Qty: 1 0RF Interventions: ED Discharge Assessment Last Done: 06/21/23 16:22 Discharge Date/Time: 06/21/23 16:23
[2023-06-21 13:50] LABS: MANUAL DIFF FLAG NO
[2023-06-21 13:52] LABS: Basophils Absolute Auto 0.1 X10*3/uL (0.0-0.2); Basophils Percent Auto 0.8 % (0-2); Eosinophils Absolute Auto 0.3 X10*3/uL (0.0-0.4); Eosinophils Percent Auto 3.2 % (0-4); Hematocrit 35.3 % (37.0-47.0); Hemoglobin 11.9 g/dl (12.0-16.0); Imm Gran Abs Auto 0.01 X10*3/uL (0.00-0.03); Imm Gran Pct Auto 0.1 % (0.0-0.4); Lymphocytes Absolute Auto 3.9 X10*3/uL (1.2-4.9); Lymphocytes Percent Auto 45.3 % (20-40); Mean Corpuscular HGB Conc 33.7 g/dl (31.0-35.0); Mean Corpuscular Hemoglobin 31.8 pg (27.0-33.0); Mean Corpuscular Volume 94.4 fL (80.0-98.0); Mean Platelet Volume 10.7 fL (9.4-12.3); Monocytes Absolute Auto 0.7 X10*3/uL (0.1-1.2); Monocytes Percent Auto 8.3 % (2-11); Neutrophils Absolute Auto 3.6 x10*3/uL (2.0-8.3); Neutrophils Percent Auto 42.3 % (45-73); Platelet Count 246 X10*3/uL (160-400); Red Blood Count 3.74 X10*6/uL (4.20-5.50); Red Cell Distribution Width 12.4 % (11.0-16.0); White Blood Count 8.6 X10*3/uL (4.8-10.8)
[2023-06-21 14:11] LABS: Alanine Aminotransferase 25 U/L (0-31); Albumin Level 4.1 g/dL (3.5-5.0); Alkaline Phosphatase 38 U/L (39-117); Anion Gap 10 (12-20); Aspartate Amino Transferase 21 U/L (5-31); Bilirubin Direct < 0.2 mg/dL (0.0-0.5); Bilirubin Total 0.2 mg/dL (0.0-1.0); Blood Urea Nitrogen 12 mg/dL (9-16); Calcium 9.1 mg/dL (8.4-10.2); Carbon Dioxide 29 mmol/L (22-29); Chloride 104 mmol/L (96-108); Creatinine Clr Calc Pharmacy 143.3; Estimated Glomerular Filt Rate > 60; Glucose Random 100 mg/dL (60-115); Potassium 4.2 mmol/L (3.3-5.1); Sodium 139 mmol/L (135-145); Total Protein 7.3 g/dL (6.5-8.0)
[2023-06-21 14:17] LABS: B Type Natriuretic Peptide 19 pg/mL (<100)
[2023-06-21 16:22] VITALS: BP 194/98; PULSE 71; RESP 20; TEMP 37; O2SAT 94
== END 2023-06-21 16:23 | disposition home or self-care (01) ==
PROVIDERS: Physician Assistant Medical; Emergency Provider Emergency Medicine
DX: M54.16 Radiculopathy, lumbar region (principal); I10 Essential (primary) hypertension; J45.909 Unspecified asthma, uncomplicated
CPT/HCPCS: 36415; 80048; 80076; 83880; 85025; 99282; 99283